=== PATIENT | male | born 1955 | race Caucasian/White ===

== ENCOUNTER 2020-03-18 14:40 | Emergency (ER) | payer OTHER, SELFPAY ==
[2020-03-18 15:03] VITALS: BP 144/81; PULSE 83; RESP 20; TEMP 36.9; O2SAT 100
--- NOTE | 2020-03-18 15:31 | ED.BACK ---
HPI - Back Pain/Injury General Chief Complaint: Back Pain/Injury Stated Complaint: nerve pain lt hip & leg Time Seen by Provider: 03/18/20 15:27 Source: RN notes reviewed History of Present Illness HPI Narrative: Patient presents emergency department from home for left lower back pain. Patient states that pain began when he carried a package of shingles up a ladder and onto the roof on 03/14/2020. States that since that time is had pain in his left lower back that radiates into his left leg. He states he has a history of sciatica and this feels similar to previous episodes. He denies any direct trauma or injury. Denies any fevers or chills abdominal pain bowel or bladder incontinence. States pain does shoot in his left leg. States occasional tingling in the left leg. Related Data Allergies Allergy/AdvReac Type Severity Reaction Status Date / Time No Known Allergies Allergy Unverified 03/18/20 15:15 Review of Systems Review of Systems: Narrative: Gen.: Denies fevers or chills ENT: Denies congestion Respiratory: Denies shortness of breath or cough CV: Denies chest pain or palpitations GI: Denies abdominal pain nausea, emesis or diarrhea denies bowel or bladder incontinence Musculoskeletal: See HPI Neuro: Denies numbness, tingling, weakness or focal weakness Skin: Denies rash Except as documented, all other systems reviewed and negative [facility] Past Medical History Medical History (Updated 03/18/20 @ 15:34 by Micah Selby DO) Sciatica Social History Social History (Updated 03/18/20 @ 15:33 by Micah Selby DO) Smoking status: Current every day smoker Exam Narrative: Exam Narrative: APPEARANCE: No acute distress, nontoxic, resting in bed Eyes: EOMI HEENT: Normocephalic, atraumatic, CV: Regular rate and rhythm without murmur RESPIRATORY: No respiratory distress. Clear to auscultation bilaterally. Abdomen: Soft and nontender, no rebound or guarding MUSCULOSKELETAl: Moves all extremities, no clubbing cyanosis or edema Back: No midline lumbar tenderness to palpation or step-off, tender to palpation over left paravertebral muscles L4-5 and left piriformis region, pain increased with forward flexion NEURO: Awake and alert. Following commands, speech normal, no focal deficits, muscle strength 5 out of 5 bilateral lower extremities, bilateral patellar reflex 2+ SKIN:: Warm, dry. Normal Color no rash or lesions Course Course Emergency Course: Reviewed old records Discussed with patient results of workup and diagnosis. Discussed need for follow-up with primary care, proper use of medication, and reasons to return to the emergency department. Patient understands and agrees to current treatment plan Vital Signs Vital signs: Vital Signs Temperature 98.4 F 03/18/20 15:03 Pulse Rate 83 03/18/20 15:03 Respiratory Rate 03/18/20 15:03 Blood Pressure 144/81 H 03/18/20 15:03 Pulse Oximetry 100 03/18/20 15:03 Temperature 98.4 F 03/18/20 15:03 Pulse Rate 83 03/18/20 15:03 Respiratory Rate 03/18/20 15:03 Blood Pressure 144/81 H 03/18/20 15:03 Pulse Oximetry 100 03/18/20 15:03 MDM - Back Pain/Injury MDM Narrative Medical decision making narrative: Patient?s pain is positional and localized to back without signs of cord compression or cauda equina. Normal nuerologic exams. No fever noted and no significant risk factors for osteomyelitis or spinal epidural abscess. No symptoms or signs to suggest pain is referred from abdominal or source. There are no pulsatile masses to exam. Patient ambulates with a steady gait and is felt to be up reasonable candidate for continued outpatient management Discharge Plan Discharge Clinical Impression: Low back pain Patient Disposition: Home, Self-Care Condition: Stable Instructions: Antibiotic Form, Acute Low Back Pain (ED) Additional Instructions: Return for increasing pain, numbness or tingling in the extremities bowel or
[2020-03-18] MEDS: KETOROLAC (*BKC) 60 MG/2 ML VIAL IM (15:51)
== END 2020-03-18 15:56 | disposition home or self-care (01) ==
PROVIDERS: Emergency Provider Emergency Medicine
DX: M54.5 Low back pain (principal)
CPT/HCPCS: 96372; 99283; J1885

== ENCOUNTER 2020-06-12 10:11 | Emergency (ER) | payer OTHER, SELFPAY ==
[2020-06-12 10:31] VITALS: BP 132/79; PULSE 94; RESP 22; TEMP 36.3; O2SAT 100
--- NOTE | 2020-06-12 10:41 | ED.SOB ---
HPI - SOB/Dyspnea General Chief Complaint: Upper Respiratory Infection Stated Complaint: SOB Source: patient Mode of arrival: ambulatory Limitations: no limitations History of Present Illness HPI Narrative: Patient is a 65-year-old male who presents with shortness of breath, intermittent chest pain, sinus pressure congestion, headache x 5 days increasing today. Denies fever, denies known contact with Covid. Patient is a current smoker. He denies taking [id number] medications for symptom relief. Patient is a poor historian and unable to report all medications. Patient has increased work of breathing at this time. MD elicited complaint: shortness of breath Related Data Home Medications Medication Instructions Recorded Confirmed Unable to Obtain Home Medications 06/12/20 06/12/20 Allergies Allergy/AdvReac Type Severity Reaction Status Date / Time No Known Allergies Allergy Verified 06/12/20 10:53 Review of Systems Review of Systems: Narrative: CONSTITUTIONAL: Denies fever, chills, or sweats. EYES: Denies visual changes, redness, or discharge. ENT: Denies rhinorrhea or otalgia. Reports congestion and sore throat CARDIOVASCULAR: Reports intermittent chest pain, palpitations, or edema. RESPIRATORY: Reports dyspnea. GASTROINTESTINAL: Denies abdominal pain, nausea, vomiting, or diarrhea. GENITOURINARY: Denies dysuria or hematuria. SKIN: Denies rash or itching. MUSCULOSKELETAL: Denies back pain, joint pain, or myalgia. NEUROLOGIC: Denies headache, numbness, dizziness, or weakness. PSYCHIATRIC: Denies anxiety or depression. [facility] Past Medical History Medical History (Updated 06/12/20 @ 10:58 by CHRIS Salgado) Diabetes HTN (hypertension) Sciatica Surgical History Surgical History (Updated 06/12/20 @ 10:53 by CHRIS Salgado) Surgical history unknown Social History Social History (Updated 06/12/20 @ 10:54 by CHRIS Salgado) Smoking status: Current every day smoker Alcohol intake: current Alcohol use details: occasional Substance use: never Gender identity (if verbalized by the patient): Male Exam Narrative: Exam Narrative: GENERAL: Ill-appearing and ashen HEAD: Normocephalic, atraumatic. EYES: No redness or drainage. Conjunctiva are normal. ENT: Mucous membranes pink and moist. NECK: Supple. No lymphadenopathy. CHEST: Diminished lung sounds right lobe, increased work of breathing, mild supra sternal retractions, tachypneic HEART: Regular rate and rhythm. MUSCULOSKELETAL: No bony tenderness. EXTREMITIES: Normal range of motion. No edema. SKIN: Warm, dry, no rash. NEURO: No focal deficits. Alert and oriented x3. Gait steady. PSYCH: Normal affect. No signs of depression or anxiety. Course Vital Signs Vital signs: Vital Signs Temperature 36.3 C L 06/12/20 10:31 Pulse Rate 94 06/12/20 10:31 Respiratory Rate 22 H 06/12/20 10:31 Blood Pressure 132/79 06/12/20 10:31 Pulse Oximetry 100 06/12/20 10:31 Temperature 36.3 C L 06/12/20 10:31 Pulse Rate 94 06/12/20 10:31 Respiratory Rate 22 H 06/12/20 10:31 Blood Pressure 132/79 06/12/20 10:31 Pulse Oximetry 100 06/12/20 10:31 Transfer Transfered to: Jeffrey Transfer rationale: Higher level of care, need for diagnostic testing Accepting physician: Dr. Trejo. BUDDY Jones accepted report Transfer comments: Patient to drive his own vehicle, refused EMS transport. MDM - SOB/Dyspnea MDM Narrative Medical decision making narrative: Patient to be sent to the emergency department for further evaluation, no available chest x-ray at facility at this time. Patient appears to have increased work of breathing, ashen color, further evaluation and diagnostic testing is needed at this time. Patient refusing EMS transport, reports that he will drive my own vehicle . Differential Diagnosis Differential diagnosis: Likely acute exacerbation of chronic obstructive airways disease, commun
== END 2020-06-12 10:45 | disposition short-term general hospital (02) ==
PROVIDERS: Emergency Provider Nurse Practitioner
DX: R06.02 Shortness of breath (principal); E11.9 Type 2 diabetes mellitus without complications; I10 Essential (primary) hypertension; F17.200 Nicotine dependence, unspecified, uncomplicated
CPT/HCPCS: 99212; G0463

== ENCOUNTER 2020-06-12 11:32 | Emergency (ER) | payer OTHER, SELFPAY ==
[2020-06-12] VITALS (13 sets, daily range): BP systolic 127–156; BP diastolic 67–87; PULSE 72–94; RESP 17–24; TEMP 35.5; O2SAT 94–100
--- NOTE | ~2020-06-12 | US_ITS ---
EXAMINATION: US scrotum doppler DATE: 06/12/2020 13:05 INDICATION: Right testicular pain TECHNIQUE: Testicular sonogram utilizing grayscale and Doppler COMPARISON: None. FINDINGS: The right testis measures 4.5 x 2.6 x 1.9 cm. The left testis measures 4.7 x 2.7 x 1.8 cm. There is normal vascular flow to both testes. The right epididymis is normal with normal vascular jamee w. The left epididymis is normal with normal vascular flow. There is a small left hydrocele. IMPRESSION: 1. No sonographic correlate for the patient's symptoms. Reviewed, dictated and finalized at location A. ORY SCIENTIST
--- NOTE | ~2020-06-12 | XR_ITS ---
EXAMINATION: XR chest 1V portable INDICATION: Shortness of breath TECHNIQUE: Portable AP chest at 1230 hours COMPARISON: 01/21/2018 FINDINGS: The lungs are free of acute opacities. There is no pleural effusion or pneumothorax. The ca rdiomediastinal silhouette is normal. A coronary artery stent is noted. There are degenerative change s of the shoulders. IMPRESSION: 1. No acute cardiopulmonary abnormality. Reviewed, dictated and finalized at location A. ING PROGRAM DIRECTOR
--- NOTE | 2020-06-12 11:59 | ECG_ITS ---
Measurements Intervals [place] Rate: 84 P: 62 NM: 116 QRS: 26 QRSD: 97 T: 51 QT: 365 QTc: 433 Interpretive Statements SINUS RHYTHM WITH SHORT NM INTERVAL BASELINE WANDER- V6 BORDERLINE ECG Electronically Signed On 06-12-2020 13:02:10 [employer]ATER by Siann Carrion D.O.
--- NOTE | 2020-06-12 12:02 | PC.NURSE ---
Patient states that he takes 17 medications and a shot but does not know the name or why he takes them.
[2020-06-12 12:20] LABS: Basophils Percent Auto 0.5 % (0.2-1.2); Eosinophils Absolute Auto 0.2 K/mm3 (0-0.3); Eosinophils Percent Auto 3.4 % (0-4.4); Hemoglobin 13.6 g/dL (14.0-18.0); Immature Granulocyte Absolute 0.02 K/mm3 (0.00-0.031); Immature Granulocyte Percent A 0.3 % (0-0.5); Lymphocytes Absolute Auto 1.15 K/mm3 (0.9-3.2); Lymphocytes Percent Auto 17.9 % (18.3-44.2); Mean Corpuscular HGB Conc 32.4 g/dl (32-36); Mean Corpuscular Hemoglobin 26.5 pg (26-34); Mean Corpuscular Volume 81.7 fl (80-100); Mean Platelet Volume 9.3 fl (7.4-10.4); Monocytes Absolute Auto 0.4 K/mm3 (0.1-0.6); Monocytes Percent Auto 6.2 % (2.6-8.5); Neutrophils Absolute Auto 4.6 K/mm3 (1.3-6.7); Neutrophils Percent Auto 71.7 % (45.5-73.1); Platelet Count Result 230 k/mm3 (150-375); Red Blood Count 5.14 M/mm3 (4.6-6.20); Red Cell Distribution Width 15.1 % (11.5-14.5); White Blood Count 6.4 K/mm3 (4.5-10.0)
--- NOTE | 2020-06-12 12:27 | ED.URI ---
HPI - URI/Sore Throat General Chief Complaint: Upper Respiratory Infection Stated Complaint: short of breath Time Seen by Provider: 06/12/20 12:08 Source: patient Mode of arrival: ambulatory Limitations: no limitations History of Present Illness HPI Narrative: Patient is a 65-year-old male complaining of cough, shortness of breath, nasal congestion, body aches, malaise, sore throat started 2 to 3 days ago. Patient also complaining of right testicular pain accompanied by difficulty urinating after he dropped a power tool on it 3 days ago. Denies any chest pain, abdominal pain, nausea vomiting diarrhea or fever. Related Data Home Medications Medication Instructions Recorded Confirmed Unable to Obtain Home Medications 06/12/20 06/12/20 Allergies Allergy/AdvReac Type Severity Reaction Status Date / Time No Known Allergies Allergy Verified 06/12/20 10:53 Review of Systems Review of Systems: All systems reviewed & are unremarkable except as noted in HPI and below Constitutional: Constitutional: Denies body ache(s), Denies chills, Denies excessive sweating, Denies fatigue, Denies fever(s), Denies headache(s), Denies lethargy and Denies weight loss Eyes: Eyes: Denies blurry vision, Denies change in vision and Denies loss of vision ENT: Denies dizziness, Denies ear discharge, Denies headache(s), Denies lip swelling, Denies epistaxis, Denies nasal congestion, Denies neck pain, Denies throat swelling and Denies tongue swelling Cardiovascular: Cardiovascular: Denies chest pain, Denies chest pain at rest, Denies chest pain with activity, Denies diaphoresis, Denies rapid heart rate, Denies edema, Denies irregular heart rhythm, Denies lightheadedness and Denies palpitations Respiratory: Respiratory: Denies hemoptysis Gastrointestinal: Gastrointestinal: Denies abdominal pain, Denies melena, Denies hematochezia, Denies diarrhea, Denies nausea, Denies vomiting and Denies hematemesis Musculoskeletal: Musculoskeletal: Denies abnormal gait, Denies deformity, Denies joint swelling, Denies limited range of motion, Denies neck pain and Denies numbness Neurologic: Denies Abnormal speech present, Denies abnormal gait, Denies confusion, Denies dizziness, Denies headache(s), Denies focal weakness, Denies loss of vision, Denies numbness, Denies Other visual disturbances, Denies Sensory deficit (Neuro) and Denies weakness Psychiatric: Psychiatric: Denies confusion, Denies depression, Denies auditory hallucinations, Denies homicidal ideation and Denies suicidal ideation Endocrine: Endocrine: Denies cold intolerance, Denies excessive sweating, Denies fatigue, Denies heat intolerance and Denies palpitations Hematologic/Lymphatic: Hematologic/Lymphatic: Denies easy bleeding and Denies easy bruising Allergic/Immunologic: Allergic/Immunologic: Denies lip swelling, Denies throat swelling and Denies tongue swelling PMFSH Past Medical History Medical History (Updated 06/12/20 @ 15:18 by Micah Mianya MD) Diabetes HTN (hypertension) Sciatica Surgical History Surgical History (Updated 06/12/20 @ 10:53 by CHRIS Salgado) Surgical history unknown Social History Social History (Updated 06/12/20 @ 10:54 by CHRIS Salgado) Smoking status: Current every day smoker Alcohol intake: current Substance use: never Gender identity (if verbalized by the patient): Male Exam Const: General: cooperative, healthy appearing, comfortable, no acute distress, well developed, alert and awake; No confusion Orientation/consciousness: oriented to person, oriented to place, oriented to time, patient oriented x3 and No confusion Limitations: no limitations HENMT: Head: normal to inspection, normocephalic and atraumatic Ears: hearing grossly normal bilaterally, TM normal on the right and TM normal on the left General nose exam: Normal external nose present and Normal nares present Face and sinus: normal facial exam Mouth: Yes Normal o
[2020-06-12 12:37] LABS: Anion Gap 10 mmol/L (8-16); Blood Urea Nitrogen 17 mg/dL (9-20); Calcium 9.7 mg/dL (8.4-10.2); Carbon Dioxide 25 mmol/L (22-30); Chloride 92 mmol/L (98-107); Estimated Glomerular Filt Rate > 60; Glucose 621 mg/dL (75-110); Potassium 4.5 mmol/L (3.4-5.0); Sodium 127 mmol/L (137-145)
[2020-06-12] MEDS: LACTATED RINGERS 1,000 ML 999 ML IV CONT ×2 (12:58→15:00)
[2020-06-12 13:03] LABS: Alveolar/Arterial O2 Gradient 61.4 mmHg; Carboxyhemoglobin 4.4 % THb (0-2.0); Fractional Inspired Oxygen 21 %; HCO3 ABG 24.9 mEq/l (22.0-26.0); Methemoglobin ABG 0.2 %THb (0-1.5); Oxygen Content ABG 14.3 %vol (16.0-22.0); Oxyhemoglobin 70.1 % THb (90.0-100.0); PCO2 ABG 41.6 mmHg (35.0-45.0); PO2 FiO2 Ratio Arterial Blood 1.83 %; Reduced Hemoglobin 25.3 %THb (0-5.0); Total Hemoglobin 14.6 g/dL (12.0-18.0); pH ABG 7.395 (7.350-7.450)
[2020-06-12 13:06] LABS: PO2 ABG 38.5 mmHg (80.0-100.0)
[2020-06-12 13:07] LABS: Device ROOM AIR; Modified Allen's Test Pass; Oxygen Saturation ABG 72.6 % (95.0-100.0); Site Drawn RIGHT RADIAL
[2020-06-12] MEDS: SODIUM CHLORIDE 0.9% IV 1,000 ML 999 ML IV CONT (15:00)
[2020-06-12 15:06] LABS: Glucose Point of Care 402 (65-105)
[2020-06-12] MEDS: INSULIN HUMAN REGULAR (*BKC) 100 UNITS/ML 10 UNITS SUB-Q (15:44)
[2020-06-12 17:26] LABS: Glucose Point of Care 277 (65-105)
--- NOTE | 2020-06-12 17:30 | PC.NURSE ---
Meal tray order
--- NOTE | 2020-06-12 18:20 | PC.NURSE ---
This RN went to push patient upstairs to room 303 when he verbalized that he was not staying. EDP notified and filled out AMA form. Patient was educated on the risk of leaving AMA. Pt verbalized understanding states wont be the first time I . Patient signed AMA for prior to leaving. Patient ambulated to ER exit.
== END 2020-06-12 18:21 | disposition left against medical advice (07) ==
PROVIDERS: Emergency Medicine; Emergency Provider Emergency Medicine
DX: E11.00 Type 2 diabetes mellitus with hyperosmolarity without nonketotic hyperglycemic-hyperosmolar coma (NKHHC) (principal); E11.65 Type 2 diabetes mellitus with hyperglycemia; J06.9 Acute upper respiratory infection, unspecified; N50.811 Right testicular pain; I10 Essential (primary) hypertension; F17.200 Nicotine dependence, unspecified, uncomplicated; R94.31 Abnormal electrocardiogram [ECG] [EKG]; W20.8XXA Other cause of strike by thrown, projected or falling object, initial encounter
CPT/HCPCS: 36415; 36600; 71045; 76870; 80048; 82375; 82805; 82948; 83050; 85025; 93005; 93976; 96360; 96361; 99284; J1815; J7030; J7120

== ENCOUNTER 2024-11-25 03:40 | Emergency (ER) | payer MEDICARE, SELFPAY ==
[2024-11-25] VITALS (15 sets, daily range): BP systolic 108–150; BP diastolic 54–90; PULSE 84–99; RESP 13–22; TEMP 36.4–36.6; O2SAT 97–100
--- NOTE | ~2024-11-25 | XR_ITS ---
Clinical Indication: Chest pain AP and lateral views of the chest: Comparison: 06/12/2020 Findings: The lungs are clear, without evidence of focal consolidation or pleural effusion. Oh probab le COPD with minimal bibasilar interstitial prominence. Cardiomediastinal silhouette is within normal limits. Bones and soft tissues are unremarkable. Impression: COPD with minimal bibasilar interstitial prominence. Reviewed, dictated and finalized at location M. Impression: COPD with minimal bibasilar interstitial prominence.
--- NOTE | 2024-11-25 03:48 | ECG_ITS ---
Test Date: 2024-11-25 03:53:47 Measurements Intervals [place] Rate: 96 P: 95 [place]: 131 QRS: -2 QRSD: 100 T: 71 QT: 347 QTc: 438 Interpretive Statements SINUS RHYTHM DELAYED PRECORDIAL R/S TRANSITION BASELINE WANDER-V3 BORDERLINE ECG No previous ECG available for comparison Electronically Signed On 11-25-2024 06:28:37 CDT by Sinan Carrion D.O.
--- OUTSIDE RECORDS SUMMARY | 2024-11-25 03:52 | XMS_ITS | Clinical Summary ---
Author Organization [facility] Address [address] [place] [address] Care Team Providers Care Cemetery Vault Installer Name Role Phone No, Physician Unavailable Tavares Jarrell MD Unavailable [phone] Eusebio Jarrell MD Unavailable Yamilet Patiño NP Primary Care Provider [phone] Allergies No known active allergies Medications fluticasone propionate (FLONASE) 50 mcg/actuation nasal spray Administer 2 sprays into affected nostril(s) daily Active acetaminophen 500 mg capsule Take 2 capsules (1,000 mg total) by mouth every 8 (eight) hours 30 tablet 3 Active finasteride (PROSCAR) 5 mg tablet Take 1 tablet (5 mg total) by mouth daily 3 Active ascorbic acid (vitamin C) 1,000 mg tablet Take 1 tablet (1,000 mg total) by mouth daily Active metFORMIN XR (GLUCOPHAGE XR) 500 mg 24 hr tablet Take 1 tablet (500 mg total) by mouth 2 (two) times a day 60 tablet 4 12/01/19 25 Active aspirin 81 mg enteric coated tablet Take 1 tablet (81 mg total) by mouth daily 30 tablet 1 4 Active atorvastatin (LIPITOR) 40 mg tablet Take 1 tablet (40 mg total) by mouth nightly 30 tablet 4 Active Xarelto 20 mg tablet Take 1 tablet (20 mg total) by mouth daily with dinner 30 tablet 4 12/01/19 25 Active metoprolol tartrate (LOPRESSOR) 50 mg immediate release tablet Take 1 tablet (50 mg total) by mouth 2 (two) times a day 60 tablet 11 4 12/01/19 25 Active dronedarone (MULTAQ) 400 mg tablet Take 1 tablet (400 mg total) by mouth 2 (two) times a day with meals 60 tablet 4 Active insulin glargine (LANTUS) 100 unit/mL (3 mL) pen for injection Inject 30 Units under the skin nightly 15 mL 4 Active pen needle, diabetic (Pen Needle) 32 gauge x 5/32 needle Use as directed once a day. 100 each 4 Active insulin lispro (ADMELOG) 100 unit/mL pen for injection Inject 8 Units under the skin 3 (three) times a day with meals 15 mL 1 4 Active pen needle, diabetic 32 gauge x 5/32 needle Use as directed 3 times a day. 100 each 4 Active flash glucose sensor (FreeStyle Mainor 2 Sensor) kit Use as directed. Change sensor every 14 days. 2 kit 4 Active Additional Information Patient not taking.Reported on 10/18/2024 flash glucose scanning reader (FreeStyle Mainor 2 [place]) [facility] Use as directed with sensor. 1 each 4 Active Additional Information Patient not taking.Reported on 10/18/2024 Active Problems Problem Noted Date Diagnosed Date Chest pain 10/19/2024 Hyperglycemia 10/18/2024 Atrial fibrillation with rapid ventricular respo nse 06/12/2024 Hyperkalemia 11/30/2023 History of right above knee amputation 3 Moderate protein-calorie malnutrition 02/17/2023 Acute lower limb ischemia 12/05/2022 Assessment & Plan (12/21/2022 12:06 PM CDT): Patient following up status post right lower extremity catheter directed thrombolysis for acute on chronic limb ischemia on 12/06/2022. Patient required a large amount of sedation medications and then left AMA. He is now developed worsening redness and ischemic rest pain and wounds to the right foot. We discussed his vascular status to the right leg which is non-reconstructible and will require a right AKA. Patient placed on doxycycline. Seen with Dr. Eusebio Jarrell. PVD (peripheral vascular disease) 12/02/2022 Assessment & Plan (12/07/2022 1:35 PM CDT): Status post pharmacomechanical thrombectomy and right popliteal artery stenting. Stent is patent. Continue current medical management follow-up 3 months with duplex surveillance. Mixed hyperlipidemia 11/22/2022 Assessment & Plan (06/15/2023 3:22 PM VENDING STAND SUPERVISOR): Stable continue Lipitor 40 mg. Varicose veins of right lower extremity with anders n 11/22/2022 Low body weight due to inadequate caloric intake 11/22/2022 Artery occlusion 10/18/2022 Lung nodule 10/05/2022 Hyperglycemia due to diabetes mellitus Illicit drug use 09/14/2022 Fall 09/14/2022 Accidental drug overdose 09/13/2022 Diabetic neuropathy associat ed with type 2 diabetes mellitus 06/26/2019 Overview (09/13/2022): Last Assessment & Plan: Condition: stable Discussed glucose control targets. Educated on: Lifestyle changes, Nutrition, Foot care and Medication compliance. The monofilament test was positive for neuropathy. Oral sees a sandwich and drink cart operator regularly for foot care. Discussed regular foot care with him to prevent and identify any irregularities on the soles of the feet or on and between the toes. Oral encouraged to utilize a mirror for better view of the soles of the feet if needed. Advised member to discuss with the PCP the services of a sandwich and drink cart operator. Follow up in: three months with PCP Allergic rhinitis 06/10/2019 Overview (09/13/2022): Last Assessment & Plan: Condition: stable Follow up in: three months with PCP DM type 2 with diabetic mixed hyperlipidemia 11/2018 Overview (09/13/2022): Last Assessment & Plan: Condition: stable Discussed glucose control targets. Educated on: Lifestyle changes, Nutrition, Foot care and Medication compliance. Discussed with Oral behavior modifications to include choosing healthier options for foods and avoiding foods fast foods or foods that are fried, high in trans fats or preservatives. Oral encouraged to maintain medication compliance and to increase their current level of exercise activity to 3- 4 times weekly. Oral verbalized understanding and advised to keep all scheduled appointments. Follow up in: three months with PCP and Metal Mockup Maker GERD without esophagitis 06/10/2019 Overview (09/13/2022): Last Assessment & Plan: Condition: stable Reviewed use of antacid medication and/or diet modifications of decreasing caffeine, spicy foods, chocolate, and avoiding alcohol, tobacco, NSAIDs, and reducing citrus acids. Follow up in: three months with PCP Nicotine dependence 06/10/2019 Overview (09/13/2022): Last Assessment & Plan: Condition: stable Discussed smoking cessation, immunizations and increasing exercise activity; risk of Lung Cancer, COPD, PAD, Stroke, Heart Attack and . Discussed pharmaceutical and non-pharmaceutical options to quit. Member advised to keep all scheduled appointments. Follow up in: three months with PCP Cirrhosis 11/09/2018 Hepatitis C virus infection without hepatic coma 11/09/2018 Essential hypertension 11/09/2018 Assessment & Plan (06/15/2023 3:22 PM VENDING STAND SUPERVISOR): Stable continue amlodipine 5 mg. Assessment & Plan (12/07/2022 1:36 PM CDT): Hypertension chronic and controlled. Continue current medical management. Portal hypertension 11/09/2018 BPH (benign prostatic hyperplasia) 10/18/2018 Overview (09/13/2022): Last Assessment & Plan: Condition: stable Pt encourage to eat a diet rich on legumes and soybeans, to decrease red meats intake. To eat fish rich on omega-3 such as salmon at least once a week. To drink at least 32 oz of water daily, to drink pomegranate juice, and green tea if approve by the PCP Follow up in: three months with PCP COPD (chronic obstructive pulmonary disease) Overview (09/13/2022): Last Assessment & Plan: Condition: stable Reviewed trigger avoidance and reviewed proper use of inhalers and rescue medications. Reviewed concerning signs/symptoms and ER precautions. Follow up in: three months with PCP Coronary artery disease of n ative heart with stable angina pectoris 10/18/2018 History of heart artery stent 10/18/2018 Overview (09/13/2022): three Hypothyroidism 10/18/2018 Iron deficiency anemia secon aster to inadequate dietary iron intake 05/24/2018 History of substance abuse 11/13/2017 Solitary pulmonary nodule 07/05/2017 Other intervertebral disc displacement, lumbar r egion 02/09/2017 Abdominal aortic aneurysm without rupture 2016 Overview (09/13/2022): 3.3 x3.6cm on ultrasound done 04/2019, recheck again in 1 year. Abnormal electrocardiogram 11/22/2016 Atrial fibrillation with RVR Resolved Problems Problem Noted Date Diagnosed Date Resolved Date Hypokalemia 06/17/2023 11/30/2023 Ischemia of extremity 02/14/20232023 Acquired absence of right leg above knee 12/21/2022 12/21/2022 Assessment & Plan (12/21/2022 12:00 PM CDT): Right leg pain 11/22/2022 11/30/2023 Limb ischemia 10/18/2022 11/30/2023 Assessment & Plan (06/15/2023 3:21 PM VENDING STAND SUPERVISOR): Status post right above knee amputation. He has now completely healed. We will start working with prosthetics. The patient has an adequate residual limb that would be appropriate for a level K3 prosthesis. They're currently undergoing prosthesis evaluation and fitting for a right above knee prosthetic. Patient has no complaints or concerns at this time. I have examined the patient and recommend a prosthesis. The patient was a level K3 ambulator prior to their amputation. 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 Patient is very motivated to return to normal function once prosthesis is obtained. The patient is capable walking on uneven surfaces and able to traverse multiple level barriers including stairs, curbs and hills. The patient currently has adequate upper extremity limb strength and ability to transfer from there chair to a bed, couch or toilet. The patient does not have any other comorbidities that would hinder their ability to return to full function within a reasonable amount of time. Altered mental status 09/14/20222023 Low back pain, unspecified b ack pain laterality, unspecified chronicity, unspecified whether sciatica present 09/13/2022 Mucopurulent chronic bronchitis 07/05/2017 11/30/2023 Abdominal pain 11/22/2016 11/30/2023 Type 2 diabetes mellitus wit h hyperglycemia, with long-term current use of insulin 11/22/2016 Assessment & Plan (12/07/2022 1:36 PM CDT): Chronic and controlled. Continue insulin regimen. Encounters Date Type Department Care Team Description 10/30/2024 Telephone [facility] Diabetes and Endocrinology [address] [place] [phone] Amparo Auguste MD New referral to Endocrinology 10/18/2024 5:21 PM CDT - 10/19/2024 8:34 PM CDT Hospital Encounter [address] [id number] Deo Alvarado MD Fasick, Victoria Rose, Zaid Zarate DO Chest pain, unspecified type (Primary Dx); Chronic anticoagulation; Type 1 diabetes mellitus with hyperglycemia (HCC); Chronic hyponatremia Discharge Disposition: Left Against Medical Advice 10/15/2024 Orders Only [facility] Vascular and Vein Surgery [address] [facility] [address] [place] [phone] Eusebio Jarrell MD Infrarenal abdominal aortic aneurysm (AAA) without rupture (Primary Dx); Atherosclerosis of iqugmiut artery of both lower extremities with intermittent claudication 10/14/2024 2:15 PM CDT Office Visit [facility] Vascular and Vein Surgery [address] [place] [phone] Pebbles Davis PA PVD (peripheral vascular disease) (Primary Dx); Infrarenal abdominal aortic aneurysm (AAA) without rupture; Cigarette nicotine dependence with nicotine-induced disorder; Mixed hyperlipidemia 10/14/2024 1:01 PM CDT - 10/14/2024 11:59 PM CDT Hospital Encounter [facility] [address] [place] [phone] Infrarenal abdominal aortic aneurysm (AAA) without rupture Discharge Disposition: Discharge to home or self care 10/14/2024 12:45 PM CDT - 10/14/2024 11:59 PM CDT Hospital Encounter [facility] [address] [place] [phone] PVD (peripheral vascular disease) Discharge Disposition: Discharge to home or self care 10/11/2024 Orders Only [facility] Vascular and Vein Surgery [address] [place] [phone] Eusebio Jarrell MD Infrarenal abdominal aortic aneurysm (AAA) without rupture (Primary Dx) from Last 3 Months Immunizations Immunization Administration Dates Next Due Influenza, Unspecified 07/24/2019,05/11/2018, Pfizer SARS-CoV-2 Monovalent Vaccination (12+ Yrs) PURPLE 10/28/2021 Td, Adsorbed, Preservative F ree, Adult Use, Lf Unspecified 05/07/2018 Td, Unspecified 05/07/2018 Surgical History Surgery Date Site/Laterality Comments THROMBECTOMY 10/20/2022 Right Exchange RLE thrombolytic catheter w/ RLE angiogram. Mech-Thromb RT pop, PT, & AT artery. BA RT PT & AT. BA & stenting RT pop artery. AORTIC ILIAC FEMORIAL ANGIOG FATUMA INTERVENTION 10/19/2022 Aortogram,pelvic angiogram & BLE angiogram. Initiation of catheter directed thrombolysis to RT pop artery. CARDIAC CATHETERIZATION CORONARY ANGIOPLASTY Stents x 4 --11 years ago at [facility] History Medical History Date Comments Hypertension Coronary artery disease Aortic aneurysm COPD (chronic obstructive pulmonary disease) (HC C) Illicit drug use BPH (benign prostatic hyperplasia) MD (myocardial infarction) (HCC) Depression Pulmonary nodule Diabetes mellitus (HCC) History of heart artery stent Social History Tobacco Use Types Packs/Day Years Used Date Smoking Tobacco: Every Day Cigarettes Tobacco Cessation:Ready to Q uit: Not Asked; Counseling Given: Not Answered Alcohol Use Standard Drinks/Week Comments Never 0 (1 standard drink = 0.6 oz pur e alcohol) [facility] Utilities Answer Date Recorded In the past 12 months has e [employer], gas, oil, or water [employer] threatened to shut off services in your home? Yes 11/30/2023 Social Connection and Isolation Panel [NHANES] A nswer Date Recorded In a typical week, how many times do you talk on the phone with family, friends, or neighbors? Three times a week 11/30/2023 How often do you get togethe r with friends or relatives? Three times a week 11/30/2023 How often do you attend chur ch or sabianism services? Never 11/30/2023 Do you belong to any clubs o r organizations such as zoroastrianism groups, unions, fraternal or athletic groups, or school groups? No 11/30/2023 How often do you attend meet ings of the clubs or organizations you belong to? Never 11/30/2023 Are you , , di vorced, , never , or living with a partner? 11/30/2023 Overall Financial Resource Strain (CARDIA) Answe r Date Recorded How hard is it for you to pa y for the very basics like food, housing, medical care, and heating? Hard 11/30/2023 PHQ-2 Answer Date Recorded PHQ-2 Total Score (If total score is 3 or more points, staff should administer the PHQ-9) 2 06/12/2024 Hunger Vital Sign Answer Date Recorded Within the past 12 months, y ou worried that your food would run out before you got the money to buy more. Sometimes true Within the past 12 months, t he food you bought just didn't last and you didn't have money to get more. Never true PRAPARE - Transportation Answer Date Re corded In the past 12 months, has l ack of transportation kept you from medical appointments or from getting medications? No 11/06 In the past 12 months, has l ack of transportation kept you from meetings, work, or from getting things needed for daily living? No 11/30/2023 Housing Stability Vital Sign Answer Jose Alejandro e Recorded In the last 12 months, was t here a time when you were not able to pay the mortgage or rent on time? No 11/30/2023 In the last 12 months, how many places have you lived? 1 11/30/2023 In the last 12 months, was t here a time when you did not have a steady place to sleep or slept in a fpc (including now)? No 11/30/2023 PHQ-9 Answer Date Recorded PHQ-9 Total Score 5 06/12/2024 Personal Safety Answer Date Recorded Have you ever been in or are you currently in a harmful physical or emotional relationship or is someone making you feel afraid or unsafe? Denies 10/18/2024 Sex and Gender Information Value Date Recorded Sex Assigned at Not on file Legal Sex Male 6:54 PM VENDING STAND SUPERVISOR Gender Identity Male 11/30/2023 12:46 AM CDT Sexual Orientation Not on file Obstetrics History Last Filed Vital Signs Vital Sign Reading Time Taken Comments Blood Pressure 121/65 10/19/2024 8:07 PM CDT Pulse 79 10/19/2024 8:07 PM CDT Temperature 36.6 C (97.9 F) 10/19/2024 8:07 PM CDT Respiratory Rate 18 10/19/2024 8:07 PM CDT Oxygen Saturation 96% 10/19/2024 8:07 PM CDT Inhaled Oxygen Concentration - - Weight 62 kg (136 lb 11 oz) 10/18/2024 11:40 PM CDT Height 170.2 cm (5' 7 ) 10/18/2024 11:40 PM CDT Body Mass Index 21.41 10/18/2024 11:40 PM CDT Plan of Treatment Health Maintenance Due Date Last Done Comments Albumin Creatinine Ratio, Urine 1955 Colon Cancer Screening-Colonoscopy 1955 Foot Exam 1955 Prostate Cancer Screening-PSA 1956 Dilated Eye Exam 02/15/1966 Hepatitis B Screening 02/15/1974 Pneumococcal vaccine 65+ (1 of 2 - PCV) 02/15/1975 Zoster Vaccine (1 of 2) 02/15/2006 DTaP/Tdap/Td Vaccine (1 - Tdap) 05/08/2018 8, 05/07/2018 Well Visit 65+ 02/15/2021 Lipid Panel 09/14/2023 09/14/2022 Covid-19 Vaccine (4 - 2023-2 5 season) 2024 10/28/2021, 03/21/2021, 02/19/2021 TSH Level 11/29/2024 11/30/2023, 06/07, 02/14/2023, Additional history exists Influenza Vaccine (Season Ended) 2025 06/22/2023, 07/24/2019, 05/11/2018, Additional history exists Hemoglobin A1C 04/20/2025 10/18/2024, 01/2024, 11/30/2023, Additional history exists Depression Screening 06/12/2025 06/12/2024, 06/12/20 Fall Risk Assessment 10/19/2025 10/19/2024 eGFR 10/19/2025 10/19/2024, 10/05, 10/18/2024, Additional history exists Hepatitis C Screening Completed 11/09/2018 Abdominal Aortic Aneurysm (A AA) Screen Completed 10/15/2024, 10/14/2024, 10/14/2024, Additional history exists Medical Devices Implanted Type Area Spike Maker Device Identifier Shelf Expiration Date Model / Serial / Lot Mesosphere Stent System Biomimics 3d Vascular [id number] - [id number] Implanted:Qty: 1 on 10/20/2022 by Tavares Jarrell MD at [facility] [employer] 01/19/2024 [id number] / / [id number] Procedures Procedure Name Priority Date/Time Associated Diagnosis Comments POCT GLUCOSE DEVICE Routine 10/19/2024 8 :08 PM CDT POCT GLUCOSE DEVICE Routine 10/19/2024 5 :49 PM CDT POCT GLUCOSE DEVICE Routine 10/19/2024 1 2:27 PM CDT POCT GLUCOSE DEVICE Routine 10/19/2024 8 :23 AM CDT EGFR Routine 10/19/2024 1:45 AM CDT DIFFERENTIAL AUTO Routine 10/19/2024 1:4 5 AM CDT CBC WITH AUTO DIFFERENTIAL Routine 10/19/2024 1:45 AM CDT PHOSPHORUS Routine 10/19/2024 1:45 AM CDT MAGNESIUM Routine 10/19/2024 1:45 AM CDT COMPREHENSIVE METABOLIC PANEL Routine 10/19/2024 1:45 AM CDT POCT GLUCOSE DEVICE Routine 10/18/2024 1 1:52 PM CDT EGFR Timed 10/18/2024 10:19 PM CDT HEMOGLOBIN A1C Routine 10/18/2024 10:19 PM CDT BASIC METABOLIC PANEL Timed 10/18/2024 10:19 PM CDT POCT GLUCOSE DEVICE Routine 10/18/2024 1 0:00 PM CDT POCT GLUCOSE DEVICE Routine 10/18/2024 9 :28 PM CDT POCT GLUCOSE DEVICE Routine 10/18/2024 8 :16 PM CDT TROPONIN T HIGH-SENSITIVITY 2-HOUR Timed 10/18/2024 7:14 PM CDT POCT GLUCOSE DEVICE Routine 10/18/2024 7 :07 PM CDT XR CHEST 1 VIEW ED 10/18/2024 5:35 PM CDT EGFR STAT 10/18/2024 5:31 PM CDT DIFFERENTIAL AUTO STAT 10/18/2024 5:3 1 PM CDT PROTIME-INR Routine 10/18/2024 5:31 PM CDT TROPONIN T HIGH-SENSITIVITY SERIES (BASELINE, 2HR, 4HR, 6HR) STAT 10/18/2024 5:31 PM CDT COMPREHENSIVE METABOLIC PANEL STAT 10/18/2024 5:31 PM CDT CBC WITH AUTO DIFFERENTIAL STAT 10/18/2024 5:31 PM CDT ECG 12-LEAD STAT 10/18/2024 5:29 PM CDT US DUPLEX SCAN OF AORTA: INFERIOR VENA CAVA, ILIAC, COMPLETE Routine 10/14/2024 1:59 PM CDT Infrarenal abdominal aortic aneurysm (AAA) without rupture US ARTERIAL DOPPLER LOWER EXTREMITY BILATERAL Schedule Routine, Read Routine (OP Routine) 10/14/2024 1:59 PM CDT PVD (peripheral vascular disease) THYROID FUNCTION CASCADE STAT 11/30/2023 7:45 AM CDT CTA ABDOMINAL AORTA AND BILATERAL ILIOFEMORAL RUNOFF ED 10/25/2022 4:50 PM CDT LIPID PANEL Routine 09/14/2022 1:43 AM VENDING STAND SUPERVISOR from Last 3 Months or Most Recently Relevant to Health Maintenance Results * (ABNORMAL) POCT glucose (10/19/2024 8:08 PM CDT) Glucose, POC 496(C) 70 - 199 mg/dL Glucose comment 1 Use This Result [facility] Blood 10/19/2024 8:08 PM CDT 10/19/2024 8:08 PM CDT Sa Heard DO LAB POCT ORDERABLES - DEVICE Fin al Result Performing Organization Address [facility] Co de Phone Number RAVI [address] [place] [address] * (ABNORMAL) POCT glucose (10/19/2024 5:49 PM CDT) Glucose, POC 306(H) 70 - 199 mg/dL Glucose comment 1 RN/MD Notified [facility] Blood 10/19/2024 5:49 PM CDT 10/19/2024 5:49 PM CDT [employer] DO LAB POCT ORDERABLES - DEVICE Fin al Result Performing Organization Address [facility] Co de Phone Number [address] [place] [address] * (ABNORMAL) POCT glucose (10/19/2024 12:27 PM CDT) Glucose, POC 380(H) 70 - 199 mg/dL Blood 10/19/2024 12:2 7 PM CDT 10/19/2024 12:27 PM CDT [facility] Heard DO LAB POCT ORDERABLES - DEVICE Fin al Result Performing Organization Address [facility] Co de Phone Number [address] [address] * (ABNORMAL) POCT glucose (10/19/2024 8:23 AM CDT) Glucose, POC 369(H) 70 - 199 mg/dL Glucose comment 1 Use This Result [facility] Glucose comment 2 RN/MD Notified [facility] Blood 10/19/2024 8:23 AM CDT 10/19/2024 8:23 AM CDT Zaid Heard DO LAB POCT ORDERABLES - DEVICE Fin al Result Performing Organization Address [facility] de Phone Number RAVI [address] [address] * eGFR (10/19/2024 1:45 AM CDT) Pathologist [facility] eGFR >90 >=60 mL/min/1. 73 m2 Comment: Interpretive Data Reference Interval Normal >/= 90 mL/min/1.73m2 Mildly decreased* 60 - 89 mL/min/1.73m2 Mildly to moderately decreased 45 - 59 mL/min/1.73m2 Moderately to severely decreased 30 - 44 mL/min/1.73m2 Severely decreased 15 - 29 mL/min/1.73m2 Kidney Failure < 15 mL/min/1.73m2 *Relative to young adult level Estimated glomerular filtration rate is determined by the 2020 CKD-EPI equation recommended by the National Kidney Foundation (A Unifying Approach to GFR Estimation: Recommendations of the NKF-ASK Task Force on Reassessing the Inclusion of Race in Diagnosing Kidney Disease, JASN 2020). The CKD-EPI equation should not be used for patients with unstable renal function and has not been validated in children and those over 70. Current interpretive data was last reviewed 2021. Blood 10/19/2024 1:45 AM CDT 10/19/2024 1:51 AM CDT Evelyn Hernandez DO LAB BLOOD ORDERABLES Fin al Result Performing Organization Address [facility] Co de Phone Number RAVI [address] [place] [address] * (ABNORMAL) Differential, auto (10/19/2024 1:45 AM CDT) Pathologist [facility] Neutrophil abs 5.6 1.5 - 6.5 K/cumm Imm gran abs 0.0 0.0 - 0.1 K/cumm [facility] Lymphocyte abs 0.8 0.8 - 3.3 K/cumm [facility] Monocyte abs 0.1(L) 0.2 - 0.8 K/cumm [facility] Eosinophil abs 0.0 0.0 - 0.5 K/cumm [facility] Basophil abs 0.0 0.0 - 0.1 K/cumm [facility] Neutrophil pct 85.8 % [facility] Comment: Interpretive Data Percent cell count reference ranges are not reported, since discordance with absolute values may lead to misinterpretation of CBC data. Current Interpretive Data was last revised on 2017. Imm gran pct 0.3 % [facility] Comment: Interpretive Data Percent cell count reference ranges are not reported, since discordance with absolute values may lead to misinterpretation of CBC data. Current Interpretive Data was last revised on 2017. Lymphocyte pct 12.2 % [facility] Comment: Interpretive Data Percent cell count reference ranges are not reported, since discordance with absolute values may lead to misinterpretation of CBC data. Current Interpretive Data was last revised on 2017. Monocyte pct 1.5 % [facility] Comment: Interpretive Data Percent cell count reference ranges are not reported, since discordance with absolute values may lead to misinterpretation of CBC data. Current Interpretive Data was last revised on 2017. Eosinophil pct 0.0 % [facility] Comment: Interpretive Data Percent cell count reference ranges are not reported, since discordance with absolute values may lead to misinterpretation of CBC data. Current Interpretive Data was last revised on 2017. Basophil pct 0.2 % [facility] Comment: Interpretive Data Percent cell count reference ranges are not reported, since discordance with absolute values may lead to misinterpretation of CBC data. Current Interpretive Data was last revised on 2017. Blood 10/19/2024 1:45 AM CDT 10/19/2024 1:51 AM CDT us Evelyn Hernandez DO LAB BLOOD ORDERABLES Fin al Result RAVI YU [address] [facility] [place] [address] * CBC with auto differential (10/19/2024 1:45 AM CDT) WBC 6.6 3.8 - 9.9 K/cumm Hgb 14.1 13.0 - 17.5 g/dL [facility] Hct 41.3 38.9 - 50.3 % [facility] Plt 218 150 - 400 K/cumm [facility] MPV 9.2 9.1 - 12.3 fL [facility] RBC 4.79 4.30 - 5.80 M/cumm [facility] MCV 86.2 81.3 - 96.4 fL [facility] MCH 29.4 27.1 - 33.3 pg [facility] MCHC 34.1 32.3 - 35.7 g/dL [facility] RDW CV 13.4 11.1 - 14.9 % [facility] RDW SD 41.9 35.7 - 48.1 fL [facility] NRBC abs 0.00 0.00 - 0.01 K/cumm [facility] Blood 10/19/2024 1:45 AM CDT 10/19/2024 1:51 AM CDT Shustir LAB BLOOD ORDERABLES Fin al Result Performing Organization Address [facility] de Phone Number [address] [place] [address] * Phosphorus (10/19/2024 1:45 AM CDT) [facility] Phosphorus, pl 2.3 2.3 - 4.5 mg/dL Blood 10/19/2024 1:45 AM CDT 10/19/2024 1:51 AM CDT [facility] [employer] [facility] LAB BLOOD ORDERABLES Fin al Result Performing Organization Address [facility] Co de Phone Number [address] [place] [address] * Magnesium (10/19/2024 1:45 AM CDT) [facility] Magnesium 1.9 1.4 - 2.5 mg/dL Blood 10/19/2024 1:45 AM CDT 10/19/2024 1:51 AM CDT Evelyn Hernandez DO LAB BLOOD ORDERABLES [facility] al Result [facility] [address] [facility] [place] [address] * (ABNORMAL) Comprehensive metabolic panel (10/19/2024 1:45 AM CDT) Sodium 133(L) 135 - 145 mmol/L Potassium, pl 3.9 3.3 - 4.9 mmol/L [facility] Chloride 99 97 - 110 mmol/L [facility] CO2 24 22 - 32 mmol/L [facility] Anion gap 10 2 - 15 mmol/L [facility] BUN 17 6 - 25 mg/dL [facility] Creatinine 0.32(L) 0.80 - 1.30 mg/dL [facility] Glucose 327(H) 70 - 199 mg/dL [facility] Comment: Interpretive Data Fasting glucose >/= 126 mg/dl is diagnostic for diabetes. Fasting is defined as no caloric intake for at least 8 hours. Fasting glucose between 100 mg/dl to 125 mg/dl is diagnostic of prediabetes. In a patient with classic symptoms of hyperglycemia or hyperglycemic crisis, a random glucose >/= 200 mg/dl is diagnostic for diabetes. In the absence of unequivocal hyperglycemia, results should be confirmed by repeat testing. The classification and Diagnosis of Diabetes Diabetes Care 202; 46: S19-S40. Current interpretive data was last revised 2022. Calcium 9.1 8.5 - 10.3 mg/dL [facility] Bilirubin, total 0.4 0.1 - 1.2 mg/dL [facility] Protein, pl 6.3(L) 6.5 - 8.5 g/dL [facility] Albumin 3.6 3.5 - 5.0 g/dL [facility] Alk phos 75 40 - 130 Units/L [facility] ALT 14 7 - 55 Units/L [facility] AST 15 10 - 50 Units/L [facility] Blood 10/19/2024 1:45 AM CDT 10/19/2024 1:51 AM CDT Evelyn Hernandez DO LAB BLOOD ORDERABLES Fin al Result RAVI YU [facility] [place] [address] * (ABNORMAL) POCT glucose (10/18/2024 11:52 PM CDT) Glucose, POC 281(H) 70 - 199 mg/dL Glucose comment 1 Use This Result [facility] Glucose comment 2 RN/MD Notified [facility] Blood 10/18/2024 11:5 2 PM CDT 10/18/2024 11:52 PM CDT Evelyn Hernandez DO LAB POCT ORDERABLES - DE VICE Final Result Performing Organization Address City/[facility] Co de Phone Number RAVI [address] [address] * eGFR (10/18/2024 10:19 PM CDT) eGFR >90 >=60 mL/min/1. 73 m2 Comment: Interpretive Data Reference Interval Normal >/= 90 mL/min/1.73m2 Mildly decreased* 60 - 89 mL/min/1.73m2 Mildly to moderately decreased 45 - 59 mL/min/1.73m2 Moderately to severely decreased 30 - 44 mL/min/1.73m2 Severely decreased 15 - 29 mL/min/1.73m2 Kidney Failure < 15 mL/min/1.73m2 *Relative to young adult level Estimated glomerular filtration rate is determined by the 2020 CKD-EPI equation recommended by the National Kidney Foundation (A Unifying Approach to GFR Estimation: Recommendations of the NKF-ASK Task Force on Reassessing the Inclusion of Race in Diagnosing Kidney Disease, JASN 2020). The CKD-EPI equation should not be used for patients with unstable renal function and has not been validated in children and those over 70. Current interpretive data was last reviewed 2021. Blood 10/18/2024 10:1 9 PM CDT 10/18/2024 10:26 PM CDT Evelyn Hernandez DO LAB BLOOD ORDERABLES Fin al Result Performing Organization Address [facility] de Phone Number RAVI [address] [place] [address] * (ABNORMAL) Hemoglobin A1c (10/18/2024 10:19 PM CDT) Hgb A1C 15.8(H) 4.0 - 5.6 % Estimated Average Glucose 407 mg/dL [facility] Comment: The ADA recommends reporting an estimated Average Glucose (eAG) with all Hemoglobin A1c results using the equation derived from a study of 507 normal and diabetic adults. Minority populations were underrepresented and children were not included. (Diabetes Care 31:9220-2024, 2008). The eAG is not equivalent to a fasting glucose. Blood 10/18/2024 10:1 9 PM CDT 10/18/2024 10:21 PM CDT Evelyn Prabhakar Sherrillcharlene DO LAB BLOOD ORDERABLES Fin al Result Performing Organization Address [facility] de Phone Number RAVI [address] [address] * (ABNORMAL) Basic metabolic panel (10/18/2024 10:19 PM CDT) Pathologist [facility] Sodium 135 135 - 145 mmol/L Potassium, pl 3.4 3.3 - 4.9 mmol/L [facility] Chloride 100 97 - 110 mmol/L [facility] CO2 22 22 - 32 mmol/L [facility] Anion gap 13 2 - 15 mmol/L [facility] BUN 15 6 - 25 mg/dL [facility] Creatinine 0.42(L) 0.80 - 1.30 mg/dL [facility] Glucose 364(H) 70 - 199 mg/dL [facility] Comment: Delta - Results Reviewed Interpretive Data Fasting glucose >/= 126 mg/dl is diagnostic for diabetes. Fasting is defined as no caloric intake for at least 8 hours. Fasting glucose between 100 mg/dl to 125 mg/dl is diagnostic of prediabetes. In a patient with classic symptoms of hyperglycemia or hyperglycemic crisis, a random glucose >/= 200 mg/dl is diagnostic for diabetes. In the absence of unequivocal hyperglycemia, results should be confirmed by repeat testing. The classification and Diagnosis of Diabetes Diabetes Care 2021; 46: S19-S40. Current interpretive data was last revised 2022. Calcium 8.9 8.5 - 10.3 mg/dL RAVI Blood 10/18/2024 10:1 9 PM CDT 10/18/2024 10:21 PM CDT [facility] LAB BLOOD ORDERABLES Fin al Result Performing Organization Address [facility] Co de Phone Number [address] [address] * (ABNORMAL) POCT glucose (10/18/2024 10:00 PM CDT) Glucose, POC 429(H) 70 - 199 mg/dL Blood 10/18/2024 10:0 0 PM CDT 10/18/2024 10:00 PM CDT [facility] POCT ORDERABLES - DE VICE Final Result Performing Organization Address [facility] Phone Number [address] [address] * (ABNORMAL) POCT glucose (10/18/2024 9:28 PM CDT) Glucose, POC 416(H) 70 - 199 mg/dL Blood 10/18/2024 9:28 PM CDT 10/18/2024 9:28 PM CDT [facility] [place] LAB POCT ORDERABLES - DE VICE Final Result Performing Organization Address [facility] de Phone Number [address] [address] * (ABNORMAL) POCT glucose (10/18/2024 8:16 PM CDT) Glucose, POC 427(H) 70 - 199 mg/dL Blood 10/18/2024 8:16 PM CDT 10/18/2024 8:16 PM CDT Deo Alvarado MD LAB POCT ORDERABLES - CJ CE Final Result Performing Organization Address [facility] de Phone Number [address] [place] [address] * Troponin T high-sensitivity 2-hour (10/18/2024 7:14 PM CDT) [facility] Trop T hs 19 <=22 ng/L Comment: Interpretive Data For further hscTnT resources including the diagnostic algorithm and an aid in interpretation, copy and paste this link: https://nrl.testcatalog.org/show/hsTrop Current Interpretive Data last revised 2020. Trop T hs delta 5 ng/L [facility] Trop T hs interp Equivocal [facility] Blood 10/18/2024 7:14 PM CDT 10/18/2024 7:16 PM CDT Deo Alvarado MD LAB BLOOD ORDERABLES Final Result Performing Organization Address [facility] de Phone Number [address] [place] [address] * (ABNORMAL) POCT glucose (10/18/2024 7:07 PM CDT) [facility] Glucose, POC 543(C) 70 - 199 mg/dL Glucose comment 1 RN/MD Notified [facility] Blood 10/18/2024 7:07 PM CDT 10/18/2024 7:07 PM CDT Deo Alvarado MD LAB POCT ORDERABLES - CJ CE Final Result Performing Organization Address [facility] de Phone Number [address] [place] [address] * XR Chest 1 Vw Portable (if patient condition/safety warrant portable) (10/18/2024 5:35 PM CDT) Anatomical Region Laterality Modality Body, Chest N/A Computed Radiogr aphy 10/18/2024 6:36 PM CDT Narrative 10/18/2024 6:39 PM CDT EXAM DESCRIPTION: XR CHEST 1 VIEW REASON FOR STUDY: chest pain Pt here via EMS form home for sternal chest pain starting at 1600 today, pain 0/10 now, reports long hx MD and DM, EMS gave 3 ASA as pt previously took 1 baby ASA [employer], EMS reports pt was noted to have BP 70/50s, diaphoretic, run of SVT with rate 180s, resolved on its own after IVF TECHNIQUE: Single radiographic view(s) of the chest. COMPARISON: 06/12/2024 FINDINGS: LUNGS: Similar appearance of mild chronic interstitial changes. No new pulmonary opacities appreciated. No sizable pleural effusion or pneumothorax. HEART/MEDIASTINUM: Cardiac silhouette normal in size. Mediastinal and hilar contours appear normal. LINES/TUBES: None. BONES: No acute osseous abnormality. IMPRESSION: Similar appearance of mild chronic interstitial changes. No new pulmonary opacities appreciated. THIS IS AN ELECTRONICALLY VERIFIED FINAL REPORT 10/18/2024 6:39 PM - Electronically signed by Evelio Yang M.D. AM T: Report ID: [id number] Reading Location: [id number] Procedure Note Evelio Yang MD - 10/18/2024 EXAM DESCRIPTION: XR CHEST 1 VIEW REASON FOR STUDY: chest pain Pt here via EMS form home for sternal chest pain starting at 1600 today, pain 0/10 now, reports long hx MD and DM, EMS gave 3 ASA as pt previouslytook 1 baby ASA [employer], EMS reports pt was noted to have BP 70/50s, diaphoretic,run of SVT with rate 180s, resolved on its own after IVF TECHNIQUE: Single radiographic view(s) of the chest. COMPARISON: 06/12/2024 FINDINGS: LUNGS: Similar appearance of mild chronic interstitial changes.No new pulmonary opacities appreciated. No sizable pleural effusion or pneumothorax. HEART/MEDIASTINUM: Cardiac silhouette normal in size. Mediastinal andhilar contours appear normal. LINES/TUBES: None. BONES: No acute osseous abnormality. IMPRESSION: Similar appearance of mild chronic interstitial changes. Nonew pulmonary opacities appreciated. THIS IS AN ELECTRONICALLY VERIFIED FINAL REPORT 10/18/2024 6:39 PM - Electronically signed by Evelio Yang M.D. AM T: Report ID: [id number] Reading Location: [id number] Deo Alvarado MD IMG XR PROCEDURES Final Re sult * Troponin T high-sensitivity series (baseline, 2hr, 4hr, 6hr) (10/18/2024 5:31 PM CDT) Pathologist [facility] Trop T hs 14 <=22 ng/L Comment: Interpretive Data For further hscTnT resources including the diagnostic algorithm and an aid in interpretation, copy and paste this link: https://nrl.testcatalog.org/show/hsTrop Current Interpretive Data last revised 2020. Blood 10/18/2024 5:31 PM CDT 10/18/2024 5:47 PM CDT Deo Alvarado MD LAB BLOOD ORDERABLES Final Result [facility] [address] [facility] [place] [address] * eGFR (10/18/2024 5:31 PM CDT) Pathologist [facility] eGFR >90 >=60 mL/min/1. 73 m2 Comment: Interpretive Data Reference Interval Normal >/= 90 mL/min/1.73m2 Mildly decreased* 60 - 89 mL/min/1.73m2 Mildly to moderately decreased 45 - 59 mL/min/1.73m2 Moderately to severely decreased 30 - 44 mL/min/1.73m2 Severely decreased 15 - 29 mL/min/1.73m2 Kidney Failure < 15 mL/min/1.73m2 *Relative to young adult level Estimated glomerular filtration rate is determined by the 2021 CKD-EPI equation recommended by the National Kidney Foundation (A Unifying Approach to GFR Estimation: Recommendations of the NKF-ASK Task Force on Reassessing the Inclusion of Race in Diagnosing Kidney Disease, JASN 2020). The CKD-EPI equation should not be used for patients with unstable renal function and has not been validated in children and those over 70. Current interpretive data was last reviewed 2021. Blood 10/18/2024 5:31 PM CDT 10/18/2024 5:47 PM CDT us Deo Alvarado MD LAB BLOOD ORDERABLES Final Result [facility] [address] [facility] [place] [address] * Differential, auto (10/18/2024 5:31 PM CDT) Pathologist [facility] Neutrophil abs 5.0 1.5 - 6.5 K/cumm Imm gran abs 0.0 0.0 - 0.1 K/cumm [facility] Lymphocyte abs 1.2 0.8 - 3.3 K/cumm [facility] Monocyte abs 0.7 0.2 - 0.8 K/cumm [facility] Eosinophil abs 0.1 0.0 - 0.5 K/cumm [facility] Basophil abs 0.0 0.0 - 0.1 K/cumm [facility] Neutrophil pct 71.5 % [facility] Comment: Interpretive Data Percent cell count reference ranges are not reported, since discordance with absolute values may lead to misinterpretation of CBC data. Current Interpretive Data was last revised on 2017. Imm gran pct 0.3 % [facility] Comment: Interpretive Data Percent cell count reference ranges are not reported, since discordance with absolute values may lead to misinterpretation of CBC data. Current Interpretive Data was last revised on 2017. Lymphocyte pct 16.8 % [facility] Comment: Interpretive Data Percent cell count reference ranges are not reported, since discordance with absolute values may lead to misinterpretation of CBC data. Current Interpretive Data was last revised on 2017. Monocyte pct 9.5 % [facility] Comment: Interpretive Data Percent cell count reference ranges are not reported, since discordance with absolute values may lead to misinterpretation of CBC data. Current Interpretive Data was last revised on 2017. Eosinophil pct 1.6 % [facility] Comment: Interpretive Data Percent cell count reference ranges are not reported, since discordance with absolute values may lead to misinterpretation of CBC data. Current Interpretive Data was last revised on 2017. Basophil pct 0.3 % [facility] Comment: Interpretive Data Percent cell count reference ranges are not reported, since discordance with absolute values may lead to misinterpretation of CBC data. Current Interpretive Data was last revised on 2017. Blood 10/18/2024 5:31 PM CDT 10/18/2024 5:47 PM CDT us Deo Alvarado MD LAB BLOOD ORDERABLES Final Result [facility] [address] [facility] [place] [address] * (ABNORMAL) CBC with auto differential (10/18/2024 5:31 PM CDT) WBC 6.9 3.8 - 9.9 K/cumm Hgb 16.2 13.0 - 17.5 g/dL [facility] Hct 47.4 38.9 - 50.3 % [facility] Plt 213 150 - 400 K/cumm [facility] MPV 9.0(L) 9.1 - 12.3 fL [facility] RBC 5.47 4.30 - 5.80 M/cumm [facility] MCV 86.7 81.3 - 96.4 fL [facility] MCH 29.6 27.1 - 33.3 pg [facility] MCHC 34.2 32.3 - 35.7 g/dL [facility] RDW CV 13.3 11.1 - 14.9 % [facility] RDW SD 41.5 35.7 - 48.1 fL [facility] NRBC abs 0.00 0.00 - 0.01 K/cumm [facility] Blood Venous blood specimen / Unknown 10/18/2024 5:31 PM CDT 10/18/2024 5:47 PM CDT Deo Alvarado MD LAB BLOOD ORDERABLES Final Result Performing Organization Address [facility] Co de Phone Number RAVI [address] [address] * Protime-INR (10/18/2024 5:31 PM CDT) PT 13.6 12.0 - 14.6 sec INR 1.0 0.9 - 1.2 [facility] Comment: Ref Range High Interpretive data Oral anticoagulant therapeutic ranges: Venous thromboembolism prophylaxis or treatment: 2.0-3.0 CARDIOLOGY Standard range: 2.0-3.0 High-intensity range: 2.5-3.5 Refer to indication-specific guidelines for appropriate target ranges for prosthetic heart valve replacement. Current interpretive data was last revised on 2019. Blood 10/18/2024 5:31 PM CDT 10/18/2024 5:47 PM CDT Deo Alvarado MD LAB BLOOD ORDERABLES Final Result Performing Organization Address [facility] de Phone Number RAVI [address] [address] * (ABNORMAL) Comprehensive metabolic panel (10/18/2024 5:31 PM CDT) Sodium 130(L) 135 - 145 mmol/L Potassium, pl 4.3 3.3 - 4.9 mmol/L [facility] Chloride 90(L) 97 - 110 mmol/L [facility] CO2 22 22 - 32 mmol/L [facility] Anion gap 18(H) 2 - 15 mmol/L [facility] BUN 15 6 - 25 mg/dL [facility] Creatinine 0.37(L) 0.80 - 1.30 mg/dL [facility] Glucose 535(C) 70 - 199 mg/dL [facility] Comment: Critical Result called to and read back by [id number], DATE: 2024-10-18 18:26:17 BY: [id number] Interpretive Data Fasting glucose >/= 126 mg/dl is diagnostic for diabetes. Fasting is defined as no caloric intake for at least 8 hours. Fasting glucose between 100 mg/dl to 125 mg/dl is diagnostic of prediabetes. In a patient with classic symptoms of hyperglycemia or hyperglycemic crisis, a random glucose >/= 200 mg/dl is diagnostic for diabetes. In the absence of unequivocal hyperglycemia, results should be confirmed by repeat testing. The classification and Diagnosis of Diabetes Diabetes Care 2021; 46: S19-S40. Current interpretive data was last revised 2022. Calcium 10.1 8.5 - 10.3 mg/dL [facility] Bilirubin, total 0.4 0.1 - 1.2 mg/dL [facility] Protein, pl 7.2 6.5 - 8.5 g/dL [facility] Albumin 4.1 3.5 - 5.0 g/dL [facility] Alk phos 94 40 - 130 Units/L [facility] ALT 13 7 - 55 Units/L [facility] AST 15 10 - 50 Units/L [facility] Blood 10/18/2024 5:31 PM CDT 10/18/2024 5:47 PM CDT us Deo Alvarado MD LAB BLOOD ORDERABLES Final Result [facility] [address] [facility] [place] [address] * ECG 12 lead (10/18/2024 5:29 PM CDT) Pathologist [facility] Ventricular Rate EKG/Min 99 BPM [facility] Atrial Rate 99 BPM [facility] MO-Interval (MSEC) 122 ms [facility] QRS-Interval (MSEC) 82 ms [facility] QT-Interval (MSEC) 354 ms [facility] QTc 454 ms [facility] P [place] 74 degrees [facility] R [place] 0 degrees [facility] T [place] 67 degrees [facility] Diagnosis Normal sinus rhythm Possible Left atrial enlargement Borderline ECG When compared with ECG of 12-JUN-2024 04:31, Sinus rhythm has replaced Atrial fibrillation Vent. rate has decreased BY [address] no longer depressed in Inferior leads ST no longer depressed in Anterolateral leads Confirmed by LUCRECIA RODRIGUEZ M.D. ([id number]) on 10/21/2024 9:50:25 AM [facility] [employer] 10/18/2024 5:29 PM CDT 10/21/2024 9:50 AM CDT us Deo Alvarado MD ECG ORDERABLES Final Resu lt [facility] [employer] [facility] * US Duplex Scan of Aorta; Inferior Vena Cava, Iliac, Complete (10/14/2024 1:59 PM CDT) Anatomical Region Laterality Modality Vascular Ultrasound 10/14/2024 1:25 PM CDT Narrative 10/16/2024 10:22 AM CDT Abdominal Aortic Duplex Ultrasound Report Patient Name: ORAL HARRIS J : 1955 Study Date: 10/14/2024 1:25:22 PM Gender: M Quality Control Checker: Tiffany Rose Provider: EUSEBIO JARRELL Quality: Adequate Order Provider: EUSEBIO JARRELL PROCEDURES: Arterial Report: Duplex ultrasound imaging of the abdominal aorta. INDICATIONS: I71.43 Infrarenal abdominal aortic aneurysm, without rupture. COMPARISONS: No prior exams. MEASUREMENTS: Velocities Value Diameters Value Aorta Prx PSV 61.00 cm/sec Aorta Prx Trans Dim 3.4 x 2.8 cm Aorta Mid PSV 27.00 cm/sec Aorta Mid Trans Dim 3.0 x 2.9 cm Aorta Dst PSV 33.00 cm/sec Aorta Dst Trans Dim 3.4 x 2.7 cm Rt Com Iliac Prx PSV 143.00 cm/sec Rt Com Iliac Prx Trans Dim 1.1 x 1.2 cm Lt Com Iliac Prx PSV 87.00 cm/sec Lt Com Iliac Prx Trans Dim 1.2 x 1.1 cm MEASUREMENTS: FINDINGS: Study Quality: Adequate. study somewhat difficult due to bowel gas. CONCLUSIONS: 1. Abdominal aortic aneurysm, maximum diameter 3.4 cm. ATTESTATION: I have reviewed and interpreted the pertinent images and measurements of this study. I attest to the conclusions in the final report that is provided above. Electronically Signed By: Eusebio Jarrell MD 10/16/2024 9:57:15 AM CDT Procedure Note Eusebio Jarrell MD - 10/16/2024 Abdominal Aortic Duplex Ultrasound Report Patient Name: ORAL HARRIS J : 1955 Study Date: 10/14/2024 1:25:22 PM Gender: M Quality Control Checker: Tiffany Rose Provider: EUSEBIO JARRELL Quality: Adequate Order Provider: EUSEBIO JARRELL PROCEDURES: Arterial Report: Duplex ultrasound imaging of the abdominal aorta. INDICATIONS: I71.43 Infrarenal abdominal aortic aneurysm, without rupture. COMPARISONS: No prior exams. MEASUREMENTS: Velocities Value Diameters Value Aorta Prx PSV 61.00 cm/sec Aorta Prx Trans Dim 3.4 x 2.8 cm Aorta Mid PSV 27.00 cm/sec Aorta Mid Trans Dim 3.0 x 2.9 cm Aorta Dst PSV 33.00 cm/sec Aorta Dst Trans Dim 3.4 x 2.7 cm Rt Com Iliac Prx PSV 143.00 cm/sec Rt Com Iliac Prx Trans Dim 1.1 x 1.2cm Lt Com Iliac Prx PSV 87.00 cm/sec Lt Com Iliac Prx Trans Dim 1.2 x 1.1cm MEASUREMENTS: FINDINGS: Study Quality: Adequate. study somewhat difficult due to bowel gas. CONCLUSIONS: 1. Abdominal aortic aneurysm, maximum diameter 3.4 cm. ATTESTATION: I have reviewed and interpreted the pertinent images and measurements ofthis study. I attest to the conclusions in the final report that is provided above. Electronically Signed By: Eusebio Jarrell MD 10/16/2024 9:57:15 AM CDT us Eusebio Jarrell MD IMG US PROCEDURES Final Result * US Arterial Doppler Lower Extremity Bilateral (10/14/2024 1:59 PM CDT) Anatomical Region Laterality Modality Vascular Bilateral Ultrasound 10/14/2024 1:12 PM CDT Narrative 10/15/2024 2:05 PM CDT Lower Extremity Arterial Doppler Report Patient Name: ORAL HARRIS J : 1955 Study Date: 10/14/2024 1:12:00 PM Gender: M Quality Control Checker: Tiffany Carrasco RVT Ref Provider: EUSEBIO JARRELL Quality: Adequate Order Provider: EUSEBIO JARRELL PROCEDURES: Arterial Report: Bilateral lower extremity arterial Doppler exam at rest. INDICATIONS: I73.9 Peripheral vascular disease, unspecified. HISTORY: Right leg above knee amputation. COMPARISONS: The previous exam was completed on 12/01/22. MEASUREMENTS: Right Value Left Value Rt Brachial Pressure 159 mmHg Lt Brachial Pressure 102 mmHg Lt Calf Pressure 88 mmHg Lt UNDERWATER ROBOTICIST Pressure 94 mmHg Lt DPA Pressure 89 mmHg Lt 1st Digit Pressure sensor malfunction mmHg Lt PT ARNEL Resting 0.59 Lt DP ARNEL Resting 0.56 FINDINGS: Right Digits: sensor malfunction not able to get waveform. Left Common Femoral Artery Analysis: The common femoral artery waveform is triphasic. Left Popliteal Artery Analysis: The popliteal waveform is biphasic. pop art sounds biphasic, venous interference. Left Posterior Tibial Artery Analysis: The posterior tibial waveform is monophasic. left dpa is monophasic. CONCLUSIONS: 1. Ankle-brachial index of 0.5-0.8 is consistent with claudication and a moderate occlusive arterial disease in the left lower extremity. 2. There is evidence of left leg arterial insufficiency at the level of aorta- iliac, common femoral (inflow) arteries. ATTESTATION: I have reviewed and interpreted the pertinent images and measurements of this study. I attest to the conclusions in the final report that is provided above. Electronically Signed By: Eusebio Jarrell MD 10/15/2024 1:24:56 PM CDT Procedure Note Eusebio Jarrell MD - 10/15/2024 Lower Extremity Arterial Doppler Report Patient Name: ORAL HARRIS J : 1955 Study Date: 10/14/2024 1:12:00 PM Gender: M Quality Control Checker: Tiffany Carrasco RVT Ref Provider: EUSEBIO JARRELL Quality: Adequate Order Provider: EUSEBIO JARRELL PROCEDURES: Arterial Report: Bilateral lower extremity arterial Doppler exam at rest. INDICATIONS: I73.9 Peripheral vascular disease, unspecified. HISTORY: Right leg above knee amputation. COMPARISONS: The previous exam was completed on 12/01/22. MEASUREMENTS: Right Value Left Value Rt Brachial Pressure 159 mmHg Lt Brachial Pressure 102 mmHg Lt Calf Pressure 88 mmHg Lt UNDERWATER ROBOTICIST Pressure 94 mmHg Lt DPA Pressure 89 mmHg Lt 1st Digit Pressure sensor malfunction mmHg Lt PT ARNEL Resting 0.59 Lt DP ARNEL Resting 0.56 FINDINGS: Right Digits: sensor malfunction not able to get waveform. Left Common Femoral Artery Analysis: The common femoral artery waveform is triphasic. Left Popliteal Artery Analysis: The popliteal waveform is biphasic. pop art sounds biphasic, venousinterference. Left Posterior Tibial Artery Analysis: The posterior tibial waveform is monophasic. left dpa is monophasic. CONCLUSIONS: 1. Ankle-brachial index of 0.5-0.8 is consistent with claudication and amoderate occlusive arterial disease in the left lower extremity. 2. There is evidence of left leg arterial insufficiency at the level ofaorta- iliac, common femoral (inflow) arteries. ATTESTATION: I have reviewed and interpreted the pertinent images and measurements ofthis study. I attest to the conclusions in the final report that is provided above. Electronically Signed By: Eusebio Jarrell MD 10/15/2024 1:24:56 PM CDT us Eusebio Jarrell MD IMG US PROCEDURES Final Result * Thyroid Function [place] (11/30/2023 7:45 AM CDT) TSH 1.44 0.30 - 4.20 mcIUnit/mL Blood 11/30/2023 7:45 AM CDT 11/30/2023 7:51 AM CDT us Efrain Spain MD LAB BLOOD ORDERABLES Final Result [facility] [id number] [facility] [place] [address] * CTA Abdominal Aorta And Bilateral Iliofemoral Runoff (10/25/2022 4:50 PM CDT) Anatomical Region Laterality Modality Body Bilateral Computed Tomogra phy 10/25/2022 5:08 PM CDT Narrative 10/25/2022 5:21 PM CDT EXAM DESCRIPTION: CTA ABDOMINAL AORTA AND BILATERAL ILIOFEMORAL RUNOFF REASON FOR STUDY: right leg pain, recent stent and thrombectomy Patient presents to ED with complaints of post surgical complications, stated he had blood clots removed from right lower extremity through groin at this facility. He now states pain is back, calf and foot is swollen. Pedal pulses present right foot. Patient was not cooperative. Refused to follow breathing instructions. Patient moved and crossed his strapped ankles in first Without scan and tech could not see due to position of gantry. Had to go into scan room multiple times to reposition and repeat instructions. Best achievable images TECHNIQUE: CTA of the abdominal aorta with bilateral lower extremity runoff was performed without and with intravenous contrast using helical scanning technique. Precontrast and arterial images were obtained of the lower extremities. Images reviewed with soft tissue and bone windows. Reconstructed coronal and sagittal MPR images reviewed. All images stored on PACS. 3D MIP images rendered on scanning unit and reviewed at time of interpretation. Automated exposure control was used as a dose optimization technique for this examination. CONTRAST TYPE/DOSE: 100mL of IOVERSOL 350 MG IODINE/ML INTRAVENOUS SYRINGE injected via intravenous COMPARISON: 10/18/2022 FINDINGS: VASCULATURE: NON-CONTRASTED IMAGING: Moderately severe atherosclerotic calcifications. ABDOMINAL AORTA: Fusiform aneurysmal dilatation redemonstrated measuring up to 3.5 cm without surrounding induration. No stenosis of the lumen. MESENTERIC/RENAL: Overall limited visualization due to poor contrast enhancement. No flowing limiting disease. Single bilateral renal arteries. No anatomic variation of the mesenteric vessels. PELVIC VASCULATURE: Common/external iliac arteries: No dissection, aneurysm, intramural hematoma, rupture, or penetrating atherosclerotic ulcer. No flow limiting disease. Internal iliac arteries: No dissection, aneurysm or flow limiting disease. RIGHT LOWER EXTREMITY VASCULATURE: The right common femoral patent atherosclerotic changes but no high-grade stenosis. It bifurcates with patent femoral artery. Right superficial femoral artery is patent through the adductor canal. Proximal popliteal artery now contains a vascular stent obscures detail of the lumen though it appears patent with contrast proximal and distal to the stent. No surrounding induration, fluid collection or unusual enhancing lesion here. The distal popliteal artery and trifurcation vessels appear patent as best visualized and unchanged. No distal emboli are visualized. LEFT LOWER EXTREMITY VASCULATURE: The left common femoral artery is patent with patent profunda femoral artery. The superficial femoral artery on the left is occluded from its origin and unchanged from previous. The left popliteal artery reconstitutes through the adductor canal is patent to its trifurcation with normal three-vessel distal runoff. Unchanged. ABDOMEN/PELVIS: LOWER CHEST: No significant pulmonary abnormalities. No effusion. LIVER: Normal size. No identified cystic or solid masses. No cysts. GALLBLADDER: Normally distended BILE DUCTS: No intrahepatic or extrahepatic ductal dilatation. SPLEEN: Normal size. No focal lesions. PANCREAS: No identified cystic or solid masses. No significant calcifications. No adjacent inflammation or peripancreatic fluid collections. Pancreatic duct not dilated. ADRENALS: Normal. KIDNEYS/URINARY TRACT: No identified cystic or solid masses. No cysts. No stones. No hydronephrosis or hydroureter. Symmetric enhancement. Normal bladder. GI: No dilated bowel loops. No obvious wall thickening. Normal appendix. No significant diverticular disease. PERITONEUM: No ascites or free air. RETROPERITONEUM: No mass or adenopathy. REPRODUCTIVE: No significant abnormality. MUSCULOSKELETAL: Bilateral L5 spondylolysis with minimal anterolisthesis unchanged OTHER: No other abnormality. IMPRESSION: The right superficial femoral and popliteal artery appear patent through previously stented portion with no surrounding induration or other acute change. No distal embolus identified. Groin regions demonstrate no hematoma or pseudoaneurysm as best visualized. THIS IS AN ELECTRONICALLY VERIFIED FINAL REPORT 10/25/2022 5:21 PM - Electronically signed by Micah GONZALEZ T: Report ID: [id number] Reading Location: [place] [address] Procedure Note Micah Huerta MD - 10/25/2022 EXAM DESCRIPTION: CTA ABDOMINAL AORTA AND BILATERAL ILIOFEMORAL RUNOFF REASON FOR STUDY: right leg pain, recent stent and thrombectomy Patient presents to ED with complaints of post surgical complications,stated he had blood clots removed from right lower extremity through groin atthis facility. He now states pain is back, calf and foot is swollen. Pedalpulses present right foot. Patient was not cooperative. Refused to followbreathing instructions. Patient moved and crossed his strapped ankles in firstWithout scan and tech could not see due to position of gantry. Had to go intoscan room multiple times to reposition and repeat instructions. Bestachievable images TECHNIQUE: CTA of the abdominal aorta with bilateral lower extremityrunoff was performed without and with intravenous contrast using helicalscanning technique. Precontrast and arterial images were obtained of the lower extremities. Images reviewed with soft tissue and bone windows. Reconstructed coronal and sagittal MPR images reviewed. All images storedon PACS. 3D MIP images rendered on scanning unit and reviewed at time of interpretation. Automated exposure control was used as a doseoptimization technique for this examination. CONTRAST TYPE/DOSE: 100mL of IOVERSOL 350 MG IODINE/ML INTRAVENOUSSYRINGE injected via intravenous COMPARISON: 10/18/2022 FINDINGS: VASCULATURE: NON-CONTRASTED IMAGING: Moderately severe atheroscleroticcalcifications. ABDOMINAL AORTA: Fusiform aneurysmal dilatation redemonstrated measuringup to 3.5 cm without surrounding induration. No stenosis of the lumen. MESENTERIC/RENAL: Overall limited visualization due to poor contrast enhancement. No flowing limiting disease. Single bilateral renalarteries. No anatomic variation of the mesenteric vessels. PELVIC VASCULATURE: Common/external iliac arteries: No dissection, aneurysm, intramural hematoma, rupture, or penetrating atherosclerotic ulcer. No flow limiting disease. Internal iliac arteries: No dissection, aneurysm or flow limitingdisease. RIGHT LOWER EXTREMITY VASCULATURE: The right common femoral patent atherosclerotic changes but no high-grade stenosis. It bifurcates with patent femoral artery. Right superficial femoral artery is patent through the adductor canal. Proximal popliteal artery now contains a vascular stent obscures detail of the lumen thoughit appears patent with contrast proximal and distal to the stent. Nosurrounding induration, fluid collection or unusual enhancing lesion here. The distal popliteal artery and trifurcation vessels appear patent as best visualized and unchanged. No distal emboli are visualized. LEFT LOWER EXTREMITY VASCULATURE: The left common femoral artery is patent with patent profunda femoralartery. The superficial femoral artery on the left is occluded from its origin and unchanged from previous. The left popliteal artery reconstitutes throughthe adductor canal is patent to its trifurcation with normal three-vesseldistal runoff. Unchanged. ABDOMEN/PELVIS: LOWER CHEST: No significant pulmonary abnormalities. No effusion. LIVER: Normal size. No identified cystic or solid masses. No cysts. GALLBLADDER: Normally distended BILE DUCTS: No intrahepatic or extrahepatic ductal dilatation. SPLEEN: Normal size. No focal lesions. PANCREAS: No identified cystic or solid masses. No significant calcifications. No adjacent inflammation or peripancreatic fluidcollections. Pancreatic duct not dilated. ADRENALS: Normal. KIDNEYS/URINARY TRACT: No identified cystic or solid masses. No cysts.No stones. No hydronephrosis or hydroureter. Symmetric enhancement. Normal bladder. GI: No dilated bowel loops. No obvious wall thickening. Normalappendix. No significant diverticular disease. PERITONEUM: No ascites or free air. RETROPERITONEUM: No mass or adenopathy. REPRODUCTIVE: No significant abnormality. MUSCULOSKELETAL: Bilateral L5 spondylolysis with minimal anterolisthesis unchanged OTHER: No other abnormality. IMPRESSION: The right superficial femoral and popliteal artery appearpatent through previously stented portion with no surrounding induration or other acute change. No distal embolus identified. Groin regions demonstrate no hematoma or pseudoaneurysm as bestvisualized. THIS IS AN ELECTRONICALLY VERIFIED FINAL REPORT 10/25/2022 5:21 PM - Electronically signed by Micah GONZALEZ T: Report ID: [id number] Reading Location: [place] [address] Viri Harrison DO [facility] CT PROCEDURES Final Result * (ABNORMAL) Lipid panel (09/14/2022 1:43 AM VENDING STAND SUPERVISOR) Cholesterol 158 30 - 199 mg/dL [facility] Comment: Interpretive Data Ages < or = 19 years Acceptable: <170 mg/dL Borderline high: 170-199 mg/dL High: >or= 200 mg/dL Ages > or = 20 years Desirable: <200 mg/dL Borderline high: 200-239 mg/dL High: >or= 240 mg/dL Literature References: 1. Expert Panel on Integrated Guidelines for Cardiovascular Health and Risk Reduction in Children and Adolescents. Pediatrics 2011;128:S213 2. NCEP Expert Panel. Circulation 2004;110:227 Current Interpretive Data was last revised on 2018. Triglycerides 94 <=149 mg/dL [facility] Comment: Interpretive Data Ages < or = 9 years Acceptable: <75 mg/dL Borderline high: 75-99 mg/dL High: >or= 100 mg/dL Ages 10 to 20 years Acceptable: <90 mg/dL Borderline high: 90-129 mg/dL High: >or= 130 mg/dL Ages > or = 20 years Desirable: <150 mg/dL Borderline high: 150-199 mg/dL High: 200-499 mg/dL Very high: >or= 499 mg/dL Literature References: 1. Expert Panel on Integrated Guidelines for Cardiovascular Health and Risk Reduction in Children and Adolescents. Pediatrics 2011;128:S213 2. NCEP Expert Panel. Circulation 2004;110:227 Current Interpretive Data was last revised on 2018. HDL 31(L) >=40 mg/dL [facility] Comment: Interpretive Data Ages < or = 19 years Acceptable: >45 mg/dL Borderline low: 40-45 mg/dL Low: <40 mg/dL Ages > or = 20 years Desirable: >or= 60 mg/dL Low: <40 mg/dL Literature References: 1. Expert Panel on Integrated Guidelines for Cardiovascular Health and Risk Reduction in Children and Adolescents. Pediatrics 2011;128:S213 2. NCEP Expert Panel. Circulation 2004;110:227 Current Interpretive Data was last revised on 2018. LDL, calculated 108 <=129 mg/dL [facility] Comment: Interpretive Data Ages < or = 19 years Acceptable: <110 mg/dL Borderline high: 110-129 mg/dL High: >or= 130 mg/dL Ages > or = 20 years Optimal: <100 mg/dL Near optimal: 100-129 mg/dL Borderline high: 130-159 mg/dL High: >160 mg/dL Literature References: 1. Expert Panel on Integrated Guidelines for Cardiovascular Health and Risk Reduction in Children and Adolescents. Pediatrics 2011;128:S213 2. NCEP Expert Panel. Circulation 2004;110:227 Current Interpretive Data was last revised on 2018. Non-HDL Cholesterol 127 mg/dL [facility] YU Comment: Interpretive Data Ages < or = 19 years Acceptable: <120 mg/dL Borderline high: 120-144 mg/dL High: >145 mg/dL Ages > or = 20 years When triglycerides are >200 mg/dL, Non-HDL cholesterol is a secondary target of therapy with treatment goals that are 30 mg/dL greater than the LDL cholesterol target. Literature References: 1. Expert Panel on Integrated Guidelines for Cardiovascular Health and Risk Reduction in Children and Adolescents. Pediatrics 2011;128:S213 2. NCEP Expert Panel. Circulation 2004;110:227 Current Interpretive Data was last revised on 2018. Chol/HDL ratio 5 [facility] Blood 09/14/2022 1:43 AM VENDING STAND SUPERVISOR 09/14/2022 1:47 AM VENDING STAND SUPERVISOR Aundrea Mello INFORMATION SYSTEMS SECURITY MANAGER LAB BLOOD ORDERABLES nal Result [facility] [address] [facility] [place] [address] from Last 3 Months or Most Recently Relevant to Health Maintenance [place] [address] [address] MEDICARE ADVANTAGE IDPA IDPA [facility] MEDICARE ADVANTAGE Advance Directives For more information, please contact: [phone] * LIMITED - PEDIATRICS (Latest Code Status on File) Date Activated Date Inactivated Comments 10/18/2024 10:49 PM 10/20/2024 12:43 AM Question Answer Comments Restrictions: No bag-maskNo cardio version / defibrillationNo chest compressionsNo intubation / mechanical ventilationNo resuscitative medications box * Full Code Date Activated Date Inactivated Comments 10/18/2024 9:08 PM 10/18/2024 10:49 PM * Full Code Date Activated Date Inactivated Comments 06/12/2024 7:53 AM 06/12/2024 11:56 PM * LIMITED - No CPR Date Activated Date Inactivated Comments 11/30/2023 6:57 AM 12/01/2023 2:27 PM Question Answer Comments Provide aggressive medical m anagement before a full cardiopulmonary arrest occurs. Use antibiotics, IV Fluids, and medical treatment unless specifically selected below: No intubation * LIMITED - No CPR Date Activated Date Inactivated Comments 06/16/2023 6:11 PM 06/17/2023 10:03 PM Question Answer Comments Provide aggressive medical m anagement before a full cardiopulmonary arrest occurs. Use antibiotics, IV Fluids, and medical treatment unless specifically selected below: No intubation Discussed with the following attending physician : [facility] Care Teams Cemetery Vault Installer Relationship Specialty Start Date End Date Yamilet Patiño NP [address] [place] [id number] PCP - General Family Medicine 10/14/24 No, Physician 10/05/22 Tavares Jarrell MD [address] [place] [address] [address] Surgeon Vascular Surgery 11/07/22 Eusebio Jarrell MD [address] [place] [address] [place] [id number] Consulting Physician Vascular Surgery 02/18/23
--- OUTSIDE RECORDS SUMMARY | 2024-11-25 03:52 | XMS_ITS | Patient Health Record ---
Author Organization Formerly [facility] Address [address] [place] [address] Care Team Providers Care Color Stripper Name Role Phone Jonathan Salmeron Primary Care Provider [phone] KaylynYamilet Unavailable [phone] Allergies No Known Allergies Results Component Value Reference Range Notes Glu+PSA+Hb A1c+TestT+TestF+. .. Reviewed date:10/24/2024 02:44:27 PM Interpretation: Performing Lab:[facility] [place], [address] [place] [address], Phone - [phone], Director - Justin Notes/Report: Called/faxed to ESTEFANI Lee RN on 10/08/2024 at 16:19 ET for test Glucose Glucose 516 70-99 mg/dL Verified by r epeat analysis Hemoglobin A1c 15.3 4.8-5.6 % . Prediabetes: 5.7 - 6.4 Diabetes: >6.4 Glycemic control for adults with diabetes: <7.0 Prostate Specific Ag 0.7 0.0-4.0 ng/mL Brando ECLIA methodology. . According to the [place] [employer], Serum PSA should decrease and remain at undetectable levels after radical prostatectomy. The AUA defines biochemical recurrence as an initial PSA value 0.2 ng/mL or greater followed by a subsequent confirmatory PSA value 0.2 ng/mL or greater. Values obtained with different assay methods or kits cannot be used interchangeably. Results cannot be interpreted as absolute evidence of the presence or absence of malignant disease. PSA, Free 0.10 N/A ng/mL Brando ECLIA met hodology. % Free PSA 14.3 The table below lists the probability of prostate cancer for men with non-suspicious EULALIA results and total PSA between 4 and 10 ng/mL, by patient age (Ketty et al, CHAYO 1998, 279:1542). % Free PSA 50-64 yr 65-75 yr 0.00-10.00% 56% 55% 10.01-15.00% 24% 35% 15.01-20.00% 17% 23% 20.01-25.00% 10% 20% >25.00% 5% 9% Please note: Ketty et al did not make specific recommendations regarding the use of percent free PSA for any other population of men. Testosterone 218 264-916 ng/dL Adult male reference interval is based on a population of healthy nonobese males (BMI <30) between 19 and 39 years old. melody iDckson.al. JCEM 2017,102;1333-6732. PMID: 76559752. Free Testosterone(Direct) 6.8 6.6-18.1 pg/mL Lipid Panel* Reviewed date:10/24/2024 02:44:27 PM Interpretation: Performing Lab:[facility] [address] [facility], Phone - [phone], Director - [facility] Notes/Report: Called/faxed to ESTEFANI Lee RN on 10/08/2024 at 16:19 ET for test Glucose Cholesterol, Total 205 100-199 mg/dL Triglycerides 296 0-149 mg/dL HDL Cholesterol 28 >39 mg/dL VLDL Cholesterol Arturo 53 5-40 mg/dL LDL Chol Calc ([facility]) 124 0-99 mg/dL CMP 14 Comprehensive Metabol ic Panel* Reviewed date:10/24/2024 02:44:27 PM Interpretation: Performing Lab:[facility] [place] [address] [facility], [place], Phone - [phone], Director - PhDLior Notes/Report: Called/faxed to ESTEFANI Lee RN on 10/08/2024 at 16:19 ET for test Glucose BUN 13 8-27 mg/dL Creatinine 0.58 0.76-1.27 mg/dL eGFR 106 >59 mL/min/1.73 BUN/Creatinine Ratio 22 10-24 Sodium 131 134-144 mmol/L Potassium 4.3 3.5-5.2 mmol/L Chloride 95 96-106 mmol/L Carbon Dioxide, Total 23 20-29 mmol/L Calcium 9.3 8.6-10.2 mg/dL Protein, Total 6.6 6.0-8.5 g/dL Albumin 4.1 3.9-4.9 g/dL Globulin, Total 2.5 1.5-4.5 g/dL Bilirubin, Total 0.3 0.0-1.2 mg/dL Alkaline Phosphatase 89 44-121 IU/L AST (SGOT) 15 0-40 IU/L ALT (SGPT) 15 0-44 IU/L Vitamin B12 and Folate Reviewed date:10/24/2024 02:44:27 PM Interpretation: Performing Lab:[facility], Phone - [phone], [facility] Notes/Report: Called/faxed to ESTEFANI Lee RN on 10/08/2024 at 16:19 ET for test Glucose Vitamin B12 8202 016-1517 pg/mL Folate (Folic Acid), Serum 12.4 >3.0 ng/mL A serum folate concentration of less than 3.1 ng/mL is considered to represent clinical deficiency. Vitamin D, 25-Hydroxy* Reviewed date:10/24/2024 02:44:27 PM Interpretation: Performing Lab:[facility] [address] [facility], Phone - [phone], Director - [facility] Notes/Report: Called/faxed to ESTEFANI Lee RN on 10/08/2024 at 16:19 ET for test Glucose Vitamin D, 25-Hydroxy 19.5 30.0-100.0 ng/mL Vitamin D deficiency has been defined by the [place] of [employer] and an Endocrine Society practice guideline as a level of serum 25-OH vitamin D less than 20 ng/mL (1,2). The Endocrine Society went on to further define vitamin D insufficiency as a level between 21 and 29 ng/mL (2). 1. IOM ([place] of [employer]). 2010. Dietary reference intakes for calcium and D. [place]: The National Academies Press. 2. Katrin MF, Safia NC, Galina WEEKS, et al. Evaluation, treatment, and prevention of vitamin D deficiency: an Endocrine Society clinical practice guideline. JCEM. 2010; 96(7):1911-30. Specimen Status Report TNP Test not performed. The requested test was omitted during the job order clerk process and the specimen is no longer available for testing. TEST: [id number] TSH Rfx on Abnormal to Free T4 Contacted by Estefani Ferrara at your facility on 10/24/24. CBC With Differential/Platel et* Reviewed date:10/24/2024 02:44:27 PM Interpretation: Performing Lab:[facility], [address] [facility], Phone - [phone], Director - Justin Notes/Report: Called/faxed to ESTEFANI Lee RN on 10/08/2024 at 16:19 ET for test Glucose WBC 5.9 3.4-10.8 x10E3/uL RBC 5.66 4.14-5.80 x10E6/uL Hemoglobin 16.7 13.0-17.7 g/dL Hematocrit 50.9 37.5-51.0 % MCV 90 79-97 fL MCH 29.5 26.6-33.0 pg MCHC 32.8 31.5-35.7 g/dL RDW 13.1 11.6-15.4 % Platelets 243 150-450 x10E3/uL Neutrophils 67 Not Estab. % Lymphs 23 Not Estab. % Monocytes 7 Not Estab. % Eos 2 Not Estab. % Basos 1 Not Estab. % Neutrophils (Absolute) 3.9 1.4-7.0 x10E3/uL Lymphs (Absolute) 1.3 0.7-3.1 x10E3/uL Monocytes(Absolute) 0.4 0.1-0.9 x10E3/uL Eos (Absolute) 0.1 0.0-0.4 x10E3/uL Baso (Absolute) 0.0 0.0-0.2 x10E3/uL Immature Granulocytes 0 Not Estab. % Immature Grans (Abs) 0.0 0.0-0.1 x10E3/uL PSA Total (Reflex To Free) Reviewed date:10/24/2024 02:44:27 PM Interpretation: Performing Lab:[facility], [address] [facility], [place], Phone - [phone], Director - Justin Notes/Report: Called/faxed to ESTEFANI Lee RN on 10/08/2024 at 16:19 ET for test Glucose Reflex Criteria The percent free PSA is performed on a reflex basis only when the total PSA is between 4.0 and 10.0 ng/mL. Reason For Referral Reason Left foot vascular c ompromise, numbness, cool to touch, decreased sensation, decreased cap refill Diagnosis 1 Poor circulation of extremity (R09.89) Referral Organization [facility] Referring Provider First Name Yamilet Referring Provider Last Name Short Referring Provider [facility] Referred Provider Specialty Vascular Aide paige General Notes Estefani Villasenor 10/08/2024 08:10:47 AM >Spoke with staff who verified patient insurance is accepted Clinical Notes [facility] Vascular & Vein Surgery, [address] [place] [address] [address]. [address], , Referral Priority Urgent Reason Uncontrolled DM2, Hx of AKA r/t DM2, last a1c 15.3/ glucose 513. Diagnosis 1 Uncontrolled diabete s mellitus (E11.65) Referral Organization [facility] Referring Provider First Name Yamilet Referring Provider Last Name Short Referring Provider [facility] nancyne Referred Provider [facility] Medical Group En docrinology [facility] Referred Provider Specialty Endocrinolog y General Notes Estefani Villasenor 10/22/2024 09:54:35 AM > Spoke with staff, Luis Fernando and was advised patients insurance is accepted., Estefani Villasenor 11/22/2024 03:09:23 PM >received correspondence from facility patient refusal/does not want to schedule appt Clinical Notes [facility] Medical Group- E ndocrinology, [address], [address], [place]. [address], , Referral Priority Routine Medications Medication SIG (Take, Route, Frequency, Duration) Notes Start Date End Date Status Gabapentin 300 MG 1 capsule Orally Onc e a day for 30 days Active Atorvastatin Calcium 40 MG 1 tablet Oral ly Once a day for 30 days Active UltiCare Micro Pen [place] 32G X 4 MM as directed three times daily Active Aspirin 81 81 MG 1 tablet Orally Once a day for 30 days Active Lisinopril 40 MG 1 tablet Orally Once a day for 30 days Active Xarelto 20 MG 1 tablet with food O rally Once a day for 30 days Active Lantus SoloStar 100 UNIT/ML inject 12 units under skin daily at bedtime Subcutaneous once daily at night for 30 days Active Multaq 400 MG 1 tablet with meals Orally Twice a day for 30 days Active Metoprolol Tartrate 50 MG 1 tablet with food Orally Twice a day for 30 days Active metFORMIN HCl ER 500 MG 1 tablet with evening meal Orally Twice daily for 30 days @ 9AM & 5PM Active Tamsulosin HCl 0.4 MG 1 capsule Orally O nce a day for 30 days 10/07/2024 Active HumaLOG KwikPen 100 UNIT/ML inject 8 units under skin at meals Subcutaneous three ties daily for 30 days Active Social History Tobacco Use: Social History Observation Description Date Details (start date - stop date) Light tobacco s moker NA - NA Tobacco Control (Standard) Question Answer Notes Tobacco use: Light tobacco smoker Additional Findings: Tobacco user Moderate cigar ette smoker (10-19 cigs/day) Problems Problem Type SNOMED Code ICD Code Onset Dates Problem Status W/U Status Risk Notes Problem Hypertension (42167176) Hypertension (I10) Active confirmed Problem Type II diabetes mellitus without complication (471095687) Diabetes (E11.9) Active confirmed Problem Diabetes mellitus uncontrolled (702013181) Uncontrolled diabetes mellitus (E11.65) Active confirmed Problem Urinary hesitancy (4382184) Urinary hesitancy (R39.11) Active confirmed Vital Signs Heart Rate 91 /min 10/07/2024 Temperature 98.6 degrees Fahrenheit 10/07/2024 Respiratory Rate 16 /min 10/07/2024 Blood pressure diastolic 70 mm Hg 10/07/2024 Oximetry 95 % 10/07/2024 Height 66.5 in 10/07/2024 Blood pressure systolic 136 mm Hg 10/07/2024 Weight 135.0 lbs 10/07/2024 BMI 21.46 kg/m2 10/07/2024 Encounters Encounter Location Date Provider Diagnosis [facility] [place] [address] 10/07/2024 Yamilet Patiño [facility] care wi th new doctor, encounter for Z71.89 ; Screening for prostate cancer Z12.5 ; Screening for lung cancer Z12.2 ; Screening for deficiency anemia Z13.0 ; Screening for metabolic disorder Z13.228 ; Diabetes E11.9 ; Screening for thyroid disorder Z13.29 ; Screening for hyperlipidemia Z13.220 ; Urinary hesitancy R39.11 ; Poor circulation of extremity R09.89 and Hypertension I10 [address] [place] [address] 10/08/2024 Yamilet Patiño Uncontrolled diabete s mellitus E11.[address] [place] [address] 10/14/2024 Yamilet Patiño [address] [place] [address] 10/14/2024 Yamilet Patiño Other disorder of circulatory system I99.8 [facility] [address] [place] [address] [place] [address] 10/28/2024 Yamilet Patiño Assessments Encounter Date Diagnosis (ICD Code) Assessment Notes Treatment Notes Treatment Clinical Notes Section Notes 10/07/2024 Screening for prostate cancer (ICD-10 - Z12.5) 10/07/2024 Establishing care with new doctor, encounter for (ICD-10 - Z71.89) 10/08/2024 Uncontrolled diabetes mellitus (ICD-10 - E11.65) 10/14/2024 Other disorder of circulatory system (ICD-10 - I99.8) 10/07/2024 Screening for lung cancer (ICD-10 - Z12.2) 10/07/2024 Screening for deficiency anemia (ICD-10 - Z13.0) 10/07/2024 Screening for metabolic disorder (ICD-10 - Z13.228) 10/07/2024 Diabetes (ICD-10 - E11.9) 10/07/2024 Screening for thyroid disorder (ICD-10 - Z13.29) 10/07/2024 Screening for hyperlipidemia (ICD-10 - Z13.220) 10/07/2024 Urinary hesitancy (ICD-10 - R39.11) 10/07/2024 Poor circulation of extremity (ICD-10 - R09.89) 10/07/2024 Hypertension (ICD-10 - I10) Plan Of Treatment Future Test Test Name Order Date Hemoglobin A1c* 10/07/2024 TSH Rfx on Abnormal to Free T4 5 CT Scan : Lungs (screening) 10/07/2024 ARNEL 10/15/2024 Insurance Providers Payer Name Payer Address Payer Phone Subscriber Number Group Number Insured Name Patient Relationship to Insured Coverage Start Date Coverage End Date [employer] Medicare [address] [address] [place] [address] [id number] Fariha moran Jose Self - patient is the insured 5 Medical (General) History Medical History History ICD Code Above Knee Amputation (right lower extre mity) Diabetes Surgical History Surgery Date(Month/Year) Amputation Hospitalization History Reason Date(Month/Year) Amputation
--- OUTSIDE RECORDS SUMMARY | 2024-11-25 03:52 | XMS_ITS | Clinical Summary ---
Author Organization [facility] Address [address] [place] [address] Care Team Providers Care Ict Analyst Name Role Phone None, Provider MD Primary Care Provider Unavaila ble Allergies No known active allergies Medications fluticasone propionate (FLONASE) 50 MCG/ACT nasal spray 2 sprays by Nasal route daily. Active nitroglycerin (NITROSTAT) 0.[address] 1 tablet (0.4 mg total) under the tongue every 5 (five) minutes as needed for Chest Pain. 02/22/20 Active [place]-3 Fatty Acids (OMEGA-3 PLUS) 1000 MG Cap Take 1,000 mg by mouth daily. Active KRILL OIL OR Take 350 mg by mouth daily. Active vitamin C (ASCORBIC ACID) 1000 MG tablet Take 1 tablet (1,000 mg total) by mouth daily. Active ferrous sulfate EC 324 (65 Fe) MG tablet Take 1 tablet (324 mg total) by mouth daily with breakfast. Active probiotic (FLORAJEN3) Cap capsule Take 1 capsule by mouth daily with breakfast. Active Sennosides (LAXATIVE OR) Take 1 Dose by mouth daily as needed (Constipati on). Active XARELTO 20 MG Tab tablet Take 1 tablet (20 mg total) by mouth daily with supper. 30 tablet 10/27/19 24 Active tiotropium (SPIRIVA RESPIMAT) 2.5 MCG/ACT inhaler (SPIRIVA RESPIMAT) Inhale 2 puffs into the lungs daily. 4 g 10/27/19 24 Active metFORMIN ER, MOD, (GLUMETZA) 500 MG TABLET SR 24 HR 24 hr tabletIndication s:Type 2 diabetes mellitus with hyperglycemia, with long-term current use of insulin (CMS/HCC HHS/HCC) Take 1 tablet (500 mg total) by mouth daily. 30 tablet 10/27/19 24 Active gabapentin (NEURONTIN) 300 MG capsule Take 3 capsules (900 mg total) by mouth 3 (three) times daily. 02/20/20 24 Active atorvastatin (LIPITOR) 40 MG tablet Take 1 tablet (40 mg total) by mouth daily. for 30 days Active insulin glargine (LANTUS SOLOSTAR) 100 UNIT/ML injection (PEN)Indications :Type 2 diabetes mellitus with hyperglycemia, with long-term current use of insulin ([facility]) Inject 20 Units into the skin nightly at bedtime. 6 mL 11/24/19 25 Active carvedilol (COREG) 12.5 MG tablet Take 1 tablet (12.5 mg total) by mouth 2 (two) times daily. 60 tablet 11/24/19 25 Active finasteride (PROSCAR) 5 MG tablet Take 1 tablet (5 mg total) by mouth daily. 30 tablet 11/24/19 25 Active tamsulosin (FLOMAX) 0.4 MG Cap Take 1 capsule (0.4 mg total) by mouth nightly. 30 capsule 11/24/19 25 Active aspirin EC (ECOTRIN) 81 MG tablet Take 1 tablet (81 mg total) by mouth daily. 025 Discontinued(Er ror) insulin glargine (LANTUS SOLOSTAR) 100 UNIT/ML injection (PEN)Indications :Type 2 diabetes mellitus with hyperglycemia, with long-term current use of insulin ([facility]) Inject 12 Units into the skin nightly at bedtime. 3 mL 10/27/19 24 025 Discontinued finasteride (PROSCAR) 5 MG tablet Take 1 tablet (5 mg total) by mouth daily. 30 tablet 10/27/19 24 025 Discontinued(Er ror) carvedilol (COREG) 12.5 MG tablet Take 1 tablet (12.5 mg total) by mouth 2 (two) times daily. 60 tablet 10/27/19 24 025 Discontinued(Er ror) lisinopril (PRINIVIL) 40 MG tabletIndication s:Primary hypertension Take 1 tablet (40 mg total) by mouth daily. 60 tablet 12/22/19 24 025 Discontinued(Er ror) metoprolol tartrate (LOPRESSOR) 50 MG tablet Take 1 tablet (50 mg total) by mouth 2 (two) times daily. 025 Discontinued(St op Taking at Discharge) Active Problems Problem Noted Date Diagnosed Date Atrial fibrillation with RVR ([facility]/HCC [facility]) 0 11/22/2024 Chest pain 10/26/2023 Cardiac arrhythmia 10/26/2023 Encounters Date Type Department Care Team Description 11/22/2024 6:49 PM CDT - 11/23/2024 5:03 PM CDT Hospital Encounter [facility] Telemetry Unit A [address] [place] [address] Clarice Ferraro MD Malcolm, MD Zak Avendano, Monty Lisa MD Chest Pain Discharge Disposition: Home or Self Care (Routine Discharge) 11/22/2024 Travel from Last 3 Months Immunizations Immunization Administration Dates Next Due Flublok (Quadrivalent) 06/22/2023 Influenza (Generic) 07/24/2019,04/07/2018 Influenza Adult (Generic) 05/11/2018,06/04/2017 PFIZER COVID-19 (ORIGINAL FO RMULATION, PURPLE CAP) mRNA, LNP-S, PF, 30 MCG/0.3 ML DOSE 10/28/2021,03/21/2021,02/19/2021 Td, Adsorbed, Preservative F ree, Adult Use, Lf Unspecified 05/07/2018 Social History Tobacco Use Types Packs/Day Years Used Date Smoking Tobacco: Some Days Cigarettes 2 40 Smokeless Tobacco: Never Tobacco Cessation:Ready to Q uit: Not Asked; Counseling Given: Not Answered Alcohol Use Standard Drinks/Week Comments Not Currently 0 (1 standard drink = 0.6 oz pur e alcohol) B1300 Health Literacy Answer Date Recor ded How often do you need to hav e someone help you when you read instructions, pamphlets, or other written material from your doctor or pharmacy? Never 11/22/2024 [facility] Utilities Answer Date Recorded In the past 12 months has th e electric, gas, oil, or water company threatened to shut off services in your home? No 11/22/2024 Humiliation, Afraid, Rape, and Kick questionnair e Answer Date Recorded Within the last year, have y ou been afraid of your partner or ex-partner? No 11/22/2024 Within the last year, have y ou been humiliated or emotionally abused in other ways by your partner or ex-partner? No Within the last year, have y ou been kicked, hit, slapped, or otherwise physically hurt by your partner or ex-partner? No 11/22/2024 Within the last year, have y ou been raped or forced to have any kind of sexual activity by your partner or ex-partner? No 11/22/2024 Social Connection and Isolation Panel [NHANES] A nswer Date Recorded In a typical week, how many times do you talk on the phone with family, friends, or neighbors? Twice a week 11/22/2024 How often do you get together with friends or re latives? Once a week 11/22/2024 How often do you attend druze or congregation serv ices? Never 11/22/2024 Do you belong to any clubs o r organizations such as druze groups, unions, fraternal or athletic groups, or school groups? No 11/22/2024 How often do you attend meet ings of the clubs or organizations you belong to? Never 11/22/2024 Are you , , di vorced, , never , or living with a partner? 11/22/2024 AUDIT-C Answer Date Recorded Q1: How often do you have a drink containing alcohol? Never 11/22/2024 Q2: How many drinks containi ng alcohol do you have on a typical day when you are drinking? Patient does not drink Q3: How often do you have si x or more drinks on one occasion? Never 11/22/2024 Overall Financial Resource Strain (CARDIA) Answe r Date Recorded How hard is it for you to pa y for the very basics like food, housing, medical care, and heating? Not hard at all 11/22/2024 [facility] - Occupational Stress Questionnaire Answer Date Recorded Do you feel stress - tense, restless, nervous, or anxious, or unable to sleep at night because your mind is troubled all the time - these days? Not at all 11/22/2024 Exercise Vital Sign Answer Date Recorde d On average, how many days pe r week do you engage in moderate to strenuous exercise (like a brisk walk)? 4 days 11/22/2024 On average, how many minutes do you engage in exercise at this level? 20 min 11/22/2024 Hunger Vital Sign Answer Date Recorded Within the past 12 months, y ou worried that your food would run out before you got the money to buy more. Never true 11/23/19 25 Within the past 12 months, t he food you bought just didn't last and you didn't have money to get more. Never true 11/22/2024 PRAPARE - Transportation Answer Date Re corded In the past 12 months, has l ack of transportation kept you from medical appointments or from getting medications? No 11/05 In the past 12 months, has l ack of transportation kept you from meetings, work, or from getting things needed for daily living? No 11/22/2024 Housing Stability Vital Sign Answer Jose Alejandro e Recorded In the last 12 months, was t here a time when you were not able to pay the mortgage or rent on time? No 10/26/2023 In the last 12 months, how many places have you lived? 1 10/26/2023 In the last 12 months, was t here a time when you did not have a steady place to sleep or slept in a long-term (including now)? No 10/26/2023 Housing Stability Vital Sign Answer Jose Alejandro e Recorded In the last 12 months, was t here a time when you were not able to pay the mortgage or rent on time? No 11/22/2024 In the past 12 months, how m any times have you moved where you were living? 0 11/22/2024 At any time in the past 12 m [facility], were you homeless or living in a long-term (including now)? 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 Not on file Not on file Last Filed Vital Signs Vital Sign Reading Time Taken Comments Blood Pressure 145/73 11/23/2024 4:09 PM CDT Pulse 72 11/23/2024 4:09 PM CDT Temperature 36.7 C (98 F) 11/23/2024 4:09 PM CDT Respiratory Rate 24 11/23/2024 4:09 PM CDT Oxygen Saturation 95% 11/23/2024 4:09 PM CDT Inhaled Oxygen Concentration - - Weight 53.4 kg (117 lb 11.6 oz) 11/23/2024 3:26 AM CDT Height 170.2 cm (5' 7 ) 11/22/2024 10:3 2 PM CDT Body Mass Index 18.44 11/22/2024 10:32 PM CDT Plan of Treatment Health Maintenance Due Date Last Done Comments Colorectal Cancer Screening Colonoscopy (10 Years) 1955 Kidney Health Evaluation 1955 Diabetes: Retinopathy Eye Exam 02/15/1974 Hepatitis C 02/15/1974 Pneumococcal Vaccine: 50+ Years (1 of 2 - PCV) 02/15/1975 Zoster Vaccines (1 of 2) 02/15/2006 RSV Immunization or 60+ Years (1 - Risk 60-74 years 1-dose series) 2016 DTaP, Tdap and Td Vaccines (1 - Tdap) 05/08/2018 05/07/2018 Annual Medicare Wellness Visit 02/15/2021 Lipid Panel 09/14/2023 09/14/2022 COVID-19 Vaccine ( season) 2024 10/28/2021, 03/21/2021, 02/19/2021 PHQ-2 (Physician [place]) 08/07/2024 Hemoglobin A1C 02/22/2025 11/23/2024, 0311/2024, 06/12/2024, Additional history exists Meningococcal B Vaccine Aged Out No l onger eligible based on patient's age to complete this topic Meningococcal Vaccine Aged Out No adwoa mary kate eligible based on patient's age to complete this topic RSV Immunizations Under 20 Months Aged Out No longer eligible based on patient's age to complete this topic Procedures Procedure Name Priority Date/Time Associated Diagnosis Comments POCT GLUCOSE - MENSAH DOCKED DEVICE Routine 11/23/2024 3:24 PM CDT POCT GLUCOSE - MENSAH DOCKED DEVICE Routine 11/23/2024 11:23 AM CDT BETA-HYDROXYBUTYRATE STAT 11/23/2024 9:15 AM CDT COMPREHENSIVE METABOLIC PANEL Routine 11/23/2024 9:15 AM CDT MAGNESIUM Routine 11/23/2024 6:55 AM CDT COMPREHENSIVE METABOLIC PANEL Routine 11/23/2024 6:55 AM CDT CBC W/DIFF AUTOMATED Routine 11/23/2024 6:55 AM CDT HEMOGLOBIN, GLYCOSYLATED Routine 11/23/2024 6:55 AM CDT POCT GLUCOSE - MENSAH DOCKED DEVICE Routine 11/23/2024 6:18 AM CDT ECG 12-LEAD Routine 11/23/2024 1:46 AM CDT TROPONIN, QUANT STAT 11/22/2024 11:43 PM CDT ECG 12-LEAD STAT 11/22/2024 11:26 PM CDT POCT GLUCOSE - MENSAH DOCKED DEVICE Routine 11/22/2024 10:29 PM CDT CRITICAL CARE Routine 11/22/2024 9:13 PM CDT TROPONIN, QUANT STAT 11/22/2024 8:47 PM CDT ECG 12-LEAD STAT 11/22/2024 8:32 PM CDT XR CHEST PORTABLE STAT 11/22/2024 7:3 7 PM CDT THYROXINE, FREE (FT4) STAT 11/22/2024 7:01 PM CDT PRO-BRAIN NATRIURETIC PEPTIDE STAT 11/22/2024 7:01 PM CDT TSH W/REFLEX STAT 11/22/2024 7:01 PM CDT MAGNESIUM STAT 11/22/2024 7:01 PM CDT TROPONIN, QUANT STAT 11/22/2024 7:01 PM CDT COMPREHENSIVE METABOLIC PANEL STAT 11/22/2024 7:01 PM CDT CBC W/DIFF AUTOMATED STAT 11/22/2024 7:01 PM CDT ECG 12-LEAD STAT 11/22/2024 6:51 PM CDT from Last 3 Months Results * (ABNORMAL) POCT glucose (11/23/2024 3:24 PM CDT) Only the most recent of4 resultswithin the time period is included. GLUCOSE POC 343(H) 70 - 99 mg/dL 11/23/2024 3:37 PM CDT [facility] 11/23/2024 3:24 PM CDT us Monty Crespo MD POCT ORDERABLES - CJ CE Final Result [facility] [address] [place] [address], [place] [phone] * BETA-HYDROXYBUTYRATE (11/23/2024 9:15 AM CDT) BETA-HYDROXYBUT YRATE 0.3 0.0 - 0.5 MMOL/L 11/23/2024 9:29 AM CDT [facility] 11/23/2024 9:15 AM CDT us Monty Crespo MD LABORATORY Final Result [facility] [address] [place] [address], [place] [phone] * (ABNORMAL) COMPREHENSIVE METABOLIC PANEL (11/23/2024 9:15 AM CDT) Only the most recent of3 resultswithin the time period is included. [facility] GLUCOSE 330(H) 70 - 99 MG/DL 11/23/2024 9:51 AM CDT [facility] BUN 19(H) 7 - 18 MG/DL 11/23/2024 9:51 AM CDT [facility] CREATININE S/P/B 0.71 0.7 - 1.3 MG/DL 11/23/2024 9:51 AM CDT [facility] SODIUM S/P/B 131(L) 136 - 145 MMOL/L 11/23/2024 9:51 AM CDT [facility] POTASSIUM S/P/B 3.8 3.5 - 5.1 MMOL/L 11/23/2024 9:51 AM CDT [facility] CHLORIDE S/P/B 97 97 - 115 MMOL/L 11/23/2024 9:51 AM CDT [facility] CO2 26.5 21 - 32 MMOL/L 11/23/2024 9:51 AM CDT [facility] CALCIUM S/P/B 8.3(L) 8.5 - 10.1 MG/DL 11/23/2024 9:51 AM CDT [facility] BILIRUBIN TOTAL S/P/B 0.4 0.2 - 1.2 MG/DL 11/23/2024 9:51 AM CDT [facility] Comment: THIS ASSAY IS NOT RECOMMENDED FOR PATIENTS UNDERGOING TREATMENT WITH ELTROMBOPAG DUE TO THE POTENTIAL FOR FALSELY ELEVATED RESULTS. TOTAL PROTEIN S/P/B 6.5 6.4 - 8.2 G/DL 11/23/2024 9:51 AM CDT [facility] ALBUMIN S/P/B 3.0(L) 3.4 - 5.0 G/DL 11/23/2024 9:51 AM CDT [facility] AST 11(L) 15 - 37 U/L 11/23/2024 9:51 AM CDT [facility] ALT 20 16 - 60 U/L 11/23/2024 9:51 AM CDT [facility] ALKALINE PHOSPHATASE S/P/B 76 50 - 136 U/L 11/23/2024 9:51 AM CDT [facility] ANION GAP 7.5 2 - 10 MMOL/L 11/23/2024 9:51 AM T [facility] BUN CREATININE RATIO 26.7(H) 6 - 26 11/23/2024 9:51 AM T [facility] A/G RATIO 0.9(L) 1.0 - 2.0 RATIO 11/23/2024 9:51 AM T [facility] GFR ESTIMATE >90 >90 ML/MIN/1.7 3 M2 11/23/2024 9:51 AM T [facility] Comment: NOTE: eGFR is not calculated for patients <18 years of age or gender unknown. This is an estimated GFR calculation using the new CKD EPI creatinine equation without race and so does not require a correction factor for race. This estimated GFR should not be used for calculating drug doses. 11/23/2024 9:15 AM CDT Bhavik Nolan MD LABORATORY Final Re sult [facility] [address] [place] [address], [place] [phone] * (ABNORMAL) HEMOGLOBIN, GLYCOSYLATED (11/23/2024 6:55 AM CDT) HGB A1C 13.8(H) <5.7 % 11/23/2024 11:22 AM CDT [facility] Comment: ADA GUIDELINES 2010 5.7 TO 6.4% INCREASED RISK OF DIABETES > OR = 6.5% CONSISTENT WITH DIABETES ESTIMATED AVG GLUCOSE 349 mg/dL 11/23/2024 11:22 AM CDT [facility] 11/23/2024 6:55 AM CDT James Murry NP LABORATORY Final Result Performing Organization Address City/State/[facility] Co de Phone Number [facility] [address] [place] [address], * CBC W/DIFF AUTOMATED (11/23/2024 6:55 AM CDT) Only the most recent of2 resultswithin the time period is included. WBC 7.10 4.5 - 11.0 x10'3/uL 11/23/2024 11:53 AM CDT [facility] RBC 5.00 4.70 - 6.10 x10'6/uL 11/23/2024 11:53 AM CDT [facility] HGB 14.5 14.0 - 18.0 G/DL 11/23/2024 11:53 AM CDT [facility] HCT 43.6 43.0 - 54.0 % 11/23/2024 11:53 AM CDT [facility] MCV 87.2 80.0 - 94.0 FL 11/23/2024 11:53 AM CDT [facility] MCH 29.0 27.0 - 31.0 PG 11/23/2024 11:53 AM CDT [facility] MCHC 33.3 32.0 - 36.0 G/DL 11/23/2024 11:53 AM CDT [facility] RDW 13.7 11.5 - 14.5 % 11/23/2024 11:53 AM CDT [facility] PLT 230 130 - 400 x10'3/uL 11/23/2024 11:53 AM CDT [facility] MPV 9.6 9.3 - 12.2 FL 11/23/2024 11:53 AM CDT [facility] DIFFERENTIAL TYPE AUTOMATED DIFFERENTIAL 11/23/2024 11:53 AM CDT [facility] NEUTROPHILS % 56.3 % 11/23/2024 11:53 AM CDT [facility] LYMPHOCYTES % 32.0 % 11/23/2024 11:53 AM CDT [facility] MONOCYTES % 7.7 % 11/23/2024 11:53 AM CDT [facility] EOSINOPHILS 3.2 % 11/23/2024 11:53 AM CDT [facility] BASOPHILS 0.7 % 11/23/2024 11:53 AM CDT [facility] IMMATURE GRANS % 0.1 % 11/24/19 11:53 AM CDT [facility] ABS. NEUTROPHILS 3.99 1.80 - 7.70 x10'3/uL 11/23/2024 11:53 AM CDT [facility] ABS. LYMPHOCYTES 2.27 1.00 - 4.80 x10'3/uL 11/23/2024 11:53 AM CDT [facility] ABS. MONOCYTES 0.55 0.30 - 0.82 x10'3/uL 11/23/2024 11:53 AM CDT [facility] ABS. EOSINOPHILS 0.23 0.04 - 0.54 x10'3/uL 11/23/2024 11:53 AM CDT [facility] ABS. BASOPHILS 0.05 0.01 - 0.08 x10'3/uL 11/23/2024 11:53 AM CDT [facility] ABS. IMMATURE GRANULOCYTES 0.01 0.00 - 0.49 x10'3/uL 11/23/2024 11:53 AM CDT [facility] 11/23/2024 6:55 AM CDT James Murry NP LABORATORY Final Result [facility] [address] [place] [address], [place] [phone] * MAGNESIUM (11/23/2024 6:55 AM CDT) Only the most recent of2 resultswithin the time period is included. MAGNESIUM 2.1 1.8 - 2.4 MG/DL 11/23/2024 10:55 AM CDT [facility] 11/23/2024 6:55 AM CDT Bhavik Nolan MD LABORATORY Final Re sult [facility] [address] [place] [address], [place] [phone] * ECG 12 lead (11/23/2024 1:46 AM CDT) Only the most recent of4 resultswithin the time period is included. 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1955 Requested By: BHAVIK NOLAN Order Number: [id number] Reading : Gurmeet Biggs Measurements Intervals [place] Rate: 78 P: 65 MT: 126 QRS: 2 QRSD: 100 T: -8 QT: 371 QTc: 424 Interpretive Statements SINUS RHYTHM POSSIBLE LEFT ATRIAL ENLARGEMENT [-0.1mV P WAVE IN V1/V2] SEPTAL MYOCARDIAL INFARCTION [40+ ms Q WAVE IN V1/V2], OF INDETERMINATE AGE Compared to ECG 11/22/2024 23:26:25 Myocardial infarct finding now present Atrial fibrillation no longer present Procedure Note Gurmeet Biggs MD - 11/23/2024 [place] Test Date: 2024-11-23 [facility] Department: 40 Room: A424 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1955 Requested By: BHAVIK NOLAN Order Number: [id number] Reading : Gurmeet Biggs Measurements Intervals [place] Rate: 78 P: 65 MT: 126 QRS: 2 QRSD: 100 T: -8 QT: 371 QTc: 424 Interpretive Statements SINUS RHYTHM POSSIBLE LEFT ATRIAL ENLARGEMENT [-0.1mV P WAVE IN V1/V2] SEPTAL MYOCARDIAL INFARCTION [40+ ms Q WAVE IN V1/V2], OF INDETERMINATEAGE Compared to ECG 11/22/2024 23:26:25 Myocardial infarct finding now present Atrial fibrillation no longer present us Bhavik Nolan MD ECG ORDERABLES Final Re sult [facility] * TROPONIN, QUANT (11/22/2024 11:43 PM CDT) Only the most recent of3 resultswithin the time period is included. TROPONIN I HIGH SENSITIVITY 19 <79 ng/L 11/23/2024 12:18 AM CDT [facility] Comment: HIGH DOSES OF BIOTIN, TROPONIN-SPECIFIC AUTOANTIBODIES, AND ANTIBODY THERAPY CONTAINING HAMA MAY INTERFERE WITH THIS TEST RESULT. CORRELATION TO CLINICAL HISTORY AND PRESENTATION RECOMMENDED. 11/22/2024 11:4 3 PM CDT us Clarice Ferraro MD LABORATORY Final Resu lt [facility] [address] [place] [address], [place] [phone] * Critical Care (11/22/2024 9:13 PM CDT) Narrative Clarice Ferraro MD - 11/22/2024 9:13 PM CDT Clarice Ferraro MD 11/22/2024 11:19 PM Critical Care Performed by: Clarice Ferraro MD Authorized by: Clarice Ferraro MD Critical care provider statement: Critical care time (minutes): 60 Critical care time was exclusive of: Separately billable procedures and treating other patients Critical care was necessary to treat or prevent imminent or life-threatening deterioration of the following conditions: Cardiac dysrhythmia. Critical care was time spent personally by me on the following activities: Ordering and performing treatments and interventions, ordering and review of laboratory studies, ordering and review of radiographic studies, pulse oximetry, re-evaluation of patient's condition, development of treatment plan with patient or surrogate, discussions with consultants, evaluation of patient's response to treatment, examination of patient and obtaining history from patient or surrogate Care discussed with: admitting provider Comments: Patient given IV metoprolol, IV Cardizem bolus x 2, and started on Cardizem drip for management of cardiac dysrhythmia us Clarice Ferraro MD PROCEDURE/MINOR SURGICAL O RDERABLES Final Result * XR CHEST PORTABLE (11/22/2024 7:37 PM CDT) Anatomical Region Laterality Modality Chest Radiographic Jayda ging 11/22/2024 7:58 PM CDT Impressions 11/22/2024 8:00 PM CDT IMPRESSION: 1. No radiographic evidence of acute cardiac pulmonary process. 2. Stable chest. Referred By: Interpreted By: Sweta Lopez DO, 11/22/2024 7:58 PM Narrative 11/22/2024 8:00 PM CDT [place] [address] CLINICAL INDICATION: 69-year-old male. Reason for examination: Chest pain. 11/22/2024 7:15 PM, Maty Sharma L: chest pain TECHNIQUE: Portable upright AP view of the chest. 19:29 COMPARISON: Portable upright AP view of the chest 10/26/2023. FINDINGS: Normal heart size and pulmonary vascular distribution. The lungs are clear of infiltrates. No pleural effusion or consolidation. Procedure Note Sweta Lopez MD - 11/22/2024 [place] [address] CLINICAL INDICATION: 69-year-old male. Reason for examination: Chest pain. 11/22/2024 7:15 PM, Maty Sharma L: chest pain TECHNIQUE: Portable upright AP view of the chest. 19:29 COMPARISON: Portable upright AP view of the chest 10/26/2023. FINDINGS: Normal heart size and pulmonary vascular distribution. The lungs are clear of infiltrates. No pleural effusion orconsolidation. IMPRESSION: 1. No radiographic evidence of acute cardiac pulmonary process. 2. Stable chest. Referred By: Interpreted By: Sweta Lopez DO, 11/22/2024 7:58 PM us Clarice Ferraro MD GENERAL IMAGING Final Resu lt * (ABNORMAL) TSH W/REFLEX (11/22/2024 7:01 PM CDT) TSH 5.220(H) 0.358 - 3.74 uIU/ML 11/22/2024 8:03 PM CDT [facility] Comment: HIGH DOSES OF BIOTIN MAY INTERFERE WITH THIS TEST RESULT. CORRELATION TO CLINICAL HISTORY AND PRESENTATION RECOMMENDED. 11/22/2024 7:01 PM CDT us Clarice Ferraro MD LABORATORY Final Resu lt Performing Organization Address City/[facility]/ZIP Co de Phone Number [facility] [address] [place] [id number], * PRO-BRAIN NATRIURETIC PEPTIDE (11/22/2024 7:01 PM CDT) PRO-B TYPE NATRIURETIC PEPTIDE 53 <125 PG/ML 11/22/2024 8:03 PM CDT [facility] Comment: CUT POINTS ESTABLISHED BY [employer] ON NT PROBNP (ICON) STUDY (2006). AGE INDEPENDENT: <300 PG/ML HAS A 99% NEGATIVE PREDICTIVE VALUE FOR EXCLUDING ACUTE CHF <50 YEARS: >450 PG/ML IS CONSISTENT WITH ACUTE CHF 50-75 YEARS: >900 PG/ML IS CONSISTENT WITH ACUTE CHF >75 YEARS: >1800 PG/ML IS CONSISTENT WITH ACUTE CHF IN PATIENTS WITH RENAL INSUFFICIENCY (GFR <60), >1200 PG/ML YIELDS A DIAGNOSTIC SENSITIVITY AND SPECIFICITY OF 89% AND 72% FOR ACUTE CHF. 11/22/2024 7:01 PM CDT us Clarice Ferraro MD LABORATORY Final Resu lt [facility] [facility] [address] [place] [address], [place] [address], [place] [phone] * THYROXINE, FREE (FT4) (11/22/2024 7:01 PM CDT) FREE T4 1.17 0.76 - 1.46 NG/DL 11/22/2024 8:25 PM CDT [facility] 11/22/2024 7:01 PM CDT Clarice Ferraro MD LABORATORY Final Resu lt [facility] [address] [place] [address], [place] [phone] from Last 3 Months Insurance Advance Directives * Full Code (Latest Code Status on File) Date Activated Date Inactivated Comments 11/22/2024 10:11 PM 11/23/2024 7:08 PM * DNR Date Activated Date Inactivated Comments 10/26/2023 9:46 PM 10/27/2023 5:29 PM * DNR Date Activated Date Inactivated Comments 10/26/2023 4:27 PM 10/26/2023 9:46 PM Care Teams Ict Analyst Relationship Specialty Start Date End Date None, Provider, MD PCP - General UNKNOWN PHYSICIAN SPECIALTY 11/22/24
--- OUTSIDE RECORDS SUMMARY | 2024-11-25 03:52 | XMS_ITS ---
Author Organization [facility] Address [address] [place] [address] Care Team Providers Care Staff Certified Nurse Midwife Name Role Phone Jonathan Salmeron Primary Care Provider Yamilet Patiño [phone] REASON FOR VISIT Lab results Encounters Encounter Location Date Provider Diagnosis [address] [place] [address] 10/14/2024 Yamilet Patiño Other disorder of circulatory system I99.8 Assessments Encounter Date Diagnosis (ICD Code) Assessment Notes Treatment Notes Treatment Clinical Notes Section Notes 10/14/2024 Other disorder of circulatory system (ICD-10 - I99.8) Plan Of Treatment Future Test Test Name Order Date ARNEL 10/15/2024 Progress Notes * Jose HARRISDOB: [birth year] (69 yo M)Acc No.[id number]:10/14/2024 Patient: Jose VU :1955 A ge:69 Y S ex:Male Address:[address] [place], [place] [address], [place], [address] Subjective: * Chief Complaints: * L ab results * Medical History: * Surgical History: * Hospitalization/Major Diagno stic Procedure: * Medications: Objective: * Vitals: * Physical Examination: Assessment: * Assessment: 1. O ther disorder of circulatory system - I99.8 (Primary) Plan: * Treatment: * Procedure Codes: * true * Date: Generated for Tommy nuñez/Wale/Michael on: 0 11/25/2024 03:52 AM CDT
--- OUTSIDE RECORDS SUMMARY | 2024-11-25 03:52 | XMS_ITS | CONTINUITY OF CARE DOCUMENT ---
Author Name sherri josuerenita Address Unknown Organization [facility] Address [address] [place] [address] Phone [phone] Care Team Providers Care Assistant Sales Center Manager Name Role Phone Broderick SIMPSON, Yessy Unavailable [phone] NAHID RAMSAY MD Unavailable [phone] NAHID RAMSAY MD Unavailable [phone] PROBLEMS Condition Status Date Provider Notes Iron deficiency anemia active Amy N Josesito son PVD left l subclavian occlus ion , AAA 3.2 cm , ectasia active Yessy Villafana MD Chest pain STEMI 100% om1, 8 0%om2, 80% PDA s/p stents 12/21, nl stress nuc 07/23 active Yessy tirado MD Diabetes mellitus active Yessy Villafana MD Abdominal pain active Yessy Villafana MD Abnormal electrocardiogram active Yessy bonilla MD BACK PAIN lumbar disc disease active Yessy Villafana MD Hx of tobacco abuse active Yessy Villafana MD ENCOUNTERS Date Type Provider Location Encounter Diag nosis - In-person encounter Office Visit Yessy Villafana MD [facility] - In-person encounter Office Visit Yessy Villafana MD [facility] Hx of tobacco abuse - In-person encounter Office Visit Yessy Villafana MD [facility] Chest pain STEMI 100% om1, 80%om2, 80% PDA s/p stents 12/21, nl stress nuc 07/23 - In-person encounter Office Visit Yessy Villafana MD [facility] - In-person encounter Office Visit Yessy Villafana MD [facility] - In-person encounter Office Visit Yessy Villafana MD [facility] Chest pain STEMI 100% om1, 80%om2, 80% PDA s/p stents 12/21, nl stress nuc 07/23Diabetes mellitusAbdominal painAbnormal electrocardiogramBACK PAIN lumbar disc disease VITAL SIGNS Date Observation Value Provider Body Mass Index (Ratio) 30.69 kg/m2 Kishan Villafana MD blood pressure, diastolic 74 mm[Hg] Da marni [place] blood pressure, systolic 148 mm[Hg] Dac ia Amanda oxygen saturation, oximetry 96 % Emily Amanda respiratory rate E&M 18 /min Emily V oss pulse rate 79 /min Emily Amanda weight E&M 196 [lb_av] Emily Amanda height E&M 67 [in_i] Emily Amanda Body Mass Index (Ratio) 28.72 kg/m2 Kishan Villafana MD blood pressure, diastolic 77 mm[Hg] Solis Villegas blood pressure, systolic 154 mm[Hg] Margaret Villegas oxygen saturation, oximetry 98 % Sandra Villegas respiratory rate E&M 18 /min Corie Villegas pulse rate 55 /min Sandra Montalvoe orquidea weight E&M 183.4 [lb_av] Sandra forde height E&M 67 [in_i] Sandra Pa orquidea Body Mass Index (Ratio) 29.44 kg/m2 Kishan Villafana MD oxygen saturation, oximetry 96 % Jo-Ann Zarate respiratory rate E&M 20 /min Jo-Ann chang pulse rate 78 /min Jo-Ann Gruenenfe lder blood pressure, cuff size regular Ke rri Gruenenfelder blood pressure, diastolic 62 mm[Hg] Ke rri Gruenenfelder blood pressure, systolic 108 mm[Hg] Ker ri Gruenenfyoeler weight E&M 188 [lb_av] Jo-Ann Gruenenfe lder height E&M 67 [in_i] Jo-Ann Gruenenfe er Body Mass Index (Ratio) 29.97 kg/m2 Kishan Villafana MD blood pressure, diastolic 71 mm[Hg] Solis Landry Bakari blood pressure, systolic 146 mm[Hg] Margaret Santamaria Villegas oxygen saturation, oximetry 96 % SandraAngela Villegas respiratory rate E&M 18 /min Corie angeline MontalvoVillegas pulse rate 72 /min Sandra Winn rickieolga weight E&M 191.4 [lb_av] Sandra doyleolga height E&M 67 [in_i] Sandra Winn orquidea Body Mass Index (Ratio) 28.97 kg/m2 Kishan Villafana MD blood pressure, cuff size regular Ke rri Grueneraiza blood pressure, diastolic 60 mm[Hg] Ke rri Gruenenfanthony blood pressure, systolic 142 mm[Hg] Ker ri Tessa oxygen saturation, oximetry 96 % Jo-Ann Abdineraiza respiratory rate E&M 16 /min Jo-Ann G ryanenenfanthony pulse rate 79 /min Jo-Ann Gruenenfe er weight E&M 185 [lb_av] Jo-Ann Gruenenfe er height E&M 67 [in_i] Jo-Ann Gruenenfe er Body Mass Index (Ratio) 26.47 kg/m2 Kishan Villafana MD blood pressure, cuff size regular Kacy Murry blood pressure, diastolic 80 mm[Hg] Kacy Murry blood pressure, systolic 118 mm[Hg] Sruthi Murry oxygen saturation, oximetry 97 % Melanie Murry respiratory rate E&M 16 /min Melanie Murry pulse rate 82 /min Melanie Murry weight E&M 169 [lb_av] Melanie Murry height E&M 67 [in_i] Melanie Murry ALLERGIES No Known Drug Allergies RESULTS Date Observation Value Provider Reference Range Interpretation Location prothrombin time (patient) 10.7 s [facility] 9.1-12.0 international normalized ratio (INR) 1.1 [facility] 0.8-1.2 lipoprotein, beta, serum, point, quantitative, calculated 54 mg/dL [facility] 0-99 very low density lipoproteins 27 mg/dL [facility] 5-40 HDL cholesterol, serum 24 mg/dL [facility] >39 Low triglyceride, serum, random 134 mg/dL [facility] 0-149 cholesterol, serum 105 mg/dL [facility] 719-002 3392/10/ 22 platelet count 263 X10E3/UL [facility] 802-947 4429/10/ 22 red blood cell distribution width 18.4 % [facility] 12.3-15.4 High mean corpuscular hemoglobin concentration, RBC 30.6 G/DL [facility] 31.5-35.7 Low mean corpuscular hemoglobin, RBC 21.5 pg [facility] 26.6-33.0 Low mean corpuscular volume, RBC 70 fL [facility] 79-97 Low hematocrit, blood 31.9 % [facility] 37.5-51.0 Low hemoglobin, blood 9.8 g/dL [facility] 13.0-17.7 Low erythrocyte (RBC) count 4.55 X10E6/UL [facility] 4.14-5.80 leukocyte count, blood 6.4 X10E3/UL [facility] 3.4-10.8 alanine aminotransferase (SGPT), serum 15 1/L [facility] 0-44 aspartate aminotransferase (SGOT), serum 14 1/L [facility] 0-40 alkaline phosphatase, serum 74 1/L [facility] 39-117 bilirubin, serum, total 0.4 mg/dL [facility] 0.0-1.2 albumin/globulin ratio, serum 1.5 [facility] 1.2-2.2 globulin, serum 2.9 [facility] 1.5-4.5 albumin, serum 4.3 g/dL [facility] 3.6-4.8 protein, total, serum 7.2 g/dL [facility] 6.0-8.5 calcium, serum 9.8 mg/dL [facility] 8.6-10.2 carbon dioxide, venous blood 27 mmol/L [facility] 20-29 chloride, serum 96 mmol/L [facility] 96-106 potassium, serum 4.0 mmol/L [facility] 3.5-5.2 sodium, serum 134 mmol/L [facility] 089-835 2156/10/ 22 urea nitrogen/creatinine ratio, serum 12 [facility] 10-24 eGFR if 110 mL/min/{1 .73_m2} [facility] >59 eGFR if not 95 mL/min/{1 .73_m2} [facility] >59 creatinine, serum 0.82 mg/dL [facility] 0.76-1.27 urea nitrogen, blood 10 mg/dL [facility] 8-27 blood glucose, random 228 mg/dL [facility] 65-99 High ferritin, serum 11 ng/mL [facility] 30-400 Low pro brain natriuretic peptide 48 pg/mL [facility] 0-210 iron saturation percent, serum 4 % [facility] 15-55 Critical low iron, serum 18 ug/dL [facility] 38-169 Low iron binding capacity, unsaturated 428 ug/dL [facility] 111-343 High iron binding capacity, total 446 ug/dL [facility] 445-993 1887/01/ 10 basophil count, absolute 0.0 x10E3/uL [facility] 0.0-0.2 Eosinophil Absolute Count 0.2 X10E3/UL [facility] 0.0-0.4 monocyte count, blood, automated 0.4 X10E3/UL [facility] 0.1-0.9 lymphocyte count, blood, automated 1.2 X10E3/UL [facility] 0.7-3.1 Absolute Neutrophils 4.4 X10E3/UL [facility] 1.4-7.0 basophils as percent of blood leukocytes 1 % [facility] Not Estab. eosinophils as percent of blood leukocytes 2 % [facility] Not Estab. monocytes as percent of blood leukocytes 7 % [facility] Not Estab. lymphocytes as percent of blood leukocytes 19 % [facility] Not Estab. neutrophils as percent of blood leukocytes 71 % [facility] Not Estab. platelet count 218 X10E3/UL [facility] 733-921 5596/01/ 10 red blood cell distribution width 16.7 % [facility] 12.3-15.4 High mean corpuscular hemoglobin concentration, RBC 26.9 G/DL [facility] 31.5-35.7 Low mean corpuscular hemoglobin, RBC 20.3 pg [facility] 26.6-33.0 Low mean corpuscular volume, RBC 76 fL [facility] 79-97 Low hematocrit, blood 32.0 % [facility] 37.5-51.0 Low hemoglobin, blood 8.6 g/dL [facility] 13.0-17.7 Low erythrocyte (RBC) count 4.23 X10E6/UL [facility] 4.14-5.80 leukocyte count, blood 6.2 X10E3/UL [facility] 3.4-10.8 alanine aminotransferase (SGPT), serum 14 1/L [facility] 0-44 aspartate aminotransferase (SGOT), serum 14 1/L [facility] 0-40 alkaline phosphatase, serum 75 1/L [facility] 39-117 bilirubin, serum, total 0.3 mg/dL [facility] 0.0-1.2 albumin/globulin ratio, serum 1.6 [facility] 1.2-2.2 globulin, serum 2.6 [facility] 1.5-4.5 albumin, serum 4.2 g/dL [facility] 3.6-4.8 protein, total, serum 6.8 g/dL [facility] 6.0-8.5 calcium, serum 9.0 mg/dL [facility] 8.6-10.2 carbon dioxide, venous blood 22 mmol/L [facility] 18-29 chloride, serum 92 mmol/L [facility] 96-106 Low potassium, serum 4.3 mmol/L [facility] 3.5-5.2 sodium, serum 132 mmol/L [facility] 134-144 Low urea nitrogen/creatinine ratio, serum 18 [facility] 10-24 eGFR if not 97 mL/min/{1 .73_m2} [facility] >59 creatinine, serum 0.79 mg/dL [facility] 0.76-1.27 urea nitrogen, blood 14 mg/dL [facility] 8-27 blood glucose, random 541 mg/dL [facility] 65-99 international normalized ratio (INR) 1.1 Emily Patel Normal prothrombin time (patient) 13.4 s Emily Patel HISTORY OF MEDICATION USE Medication Status Instructions Dates Provider Indications Com ments NITROSTAT 0.4 MG SUBLINGUAL TABLET SUBLINGUAL active apply one tab under tongue every 5 minutes for 3 total doses as needed for chest pain. If no relief after 3rd dose, go to ER Yessy Villafana MD AMLODIPINE BESYLATE 5 MG ORAL TABLET active ONE TAB. DAILY Sandra Villegas LEVOTHYROXINE SODIUM 50 MCG ORAL TABLET active ONE TAB. DAILY Sandra Villegas GLIPIZIDE 5 MG ORAL TABLET active 1 tab by mouth twice daily Tricia Shah RN PLAVIX 75 MG ORAL TABLET active ONE TAB. DAILY Yessy Villafana MD ANORO ELLIPTA 62.5-25 MCG/INH INHALATION AEROSOL POWDER BREATH ACTIVATED active once daily Sandra Villegas KRILL OIL CAPSULE active once a day Jo-Ann Zarate LIPITOR 40 MG ORAL TABLET active ONE TAB. DAILY Jo-Ann Zarate METOPROLOL TARTRATE 25 MG ORAL TABLET active take one pill twice a day Jo-Ann Zarate LEVO-T 50 MCG ORAL TABLET active once a day Jo-Ann Zarate FINASTERIDE 5 MG ORAL TABLET active take one pill a day Jo-Ann Zarate AMLODIPINE BESYLATE 5 MG ORAL TABLET completed take one pill a day - Yessy Villafana MD ASPIRIN 325 MG ORAL TABLET active ONE TAB. DAILY Jo-Ann Zarate METFORMIN HCL 500 MG ORAL TABLET active take one pill twice a day Jo-Ann Zarate CYCLOBENZAPRINE HCL 10 MG ORAL TABLET completed - Sandra Villegas METOPROLOL TARTRATE TABS completed - Yessy Villafana MD SOCIAL HISTORY Date Observation Value Provider social history reviewed E&M revi ewed - no changes required Yessy Villafana MD smoking/tobacco cess ation, patient education and counseling yes Emily [place] smoking history, tot al pack/day 7 cigarettes a day Emily Amanda cigarette use yes Emily Amanda smoking status Current every day smoker D acia Amanda social history reviewed E&M revi ewed - no changes required Yessy Villafana MD smoking/tobacco cess ation, patient education and counseling yes Sandra Villegas smoking history, tot al pack/day 7 cigarettes a day Sandra Villegas cigarette use yes Sandra forde smoking status Current every day smoker M Jarrell Villegas smoking/tobacco cess ation, patient education and counseling yes Yessy Villafana MD social history E&M S moking History: P zana currently smokes every day. Yessy Villafana MD social history reviewed E&M revi ewed - no changes required Yessy Villafana MD smoking history, tot al pack/day 7 cigarettes a day Jo-Ann Zarate cigarette use yes Jo-Ann cruz smoking status Current every day smoker K mario Zarate number of grandchildren Yessy Villafana MD T lupillo Villafana MD social history reviewed E&M revi ewed - no changes required Yessy Villafana MD smoking history, tot al pack/day 7 cigarettes a day Sandra Villegas cigarette use yes Sandra forde smoking status Current every day smoker Candido Vieyra Villegas social history reviewed E&M revi ewed - no changes required Yessy Villafana MD smoking history, tot al pack/day 7 cigarettes a day Jo-Ann Zarate cigarette use yes Jo-Ann cruz smoking status Current every day smoker K mario Zarate social history reviewed E&M revi ewed - no changes required Yessy Villafana MD smoking history, tot al pack/day 7 cigarettes a day Melanie Murry cigarette use yes Melanie Murry smoking status Current every day smoker L jovanny Murry FAMILY HISTORY Family Member Condition Mother Family History Unkno wn INSURANCE PROVIDERS Payer name Policy type / Coverage type [place] red republican ID [employer] MEDICAID Medicaid [id number] ADVANCE DIRECTIVES Name Date DISCUSSED - NO DECISION MADE TREATMENT PLAN Date Name Performer Cardiology follow up Yessy tirado MD Cardiology follow up:Per pt, wel l controlled. Yessy Villafana MD Cardiology follow up :Hx STEMI with 4 stents, mild plaque on carotid doppler, significant plaque in left subclavian. C/o stabbing cp associated with sob and exertion. Has taken 7 NTG in the past 9 days to help with pain management of these pains. Has reduced smoking to two cigarettes weekly. Significant associated history and risk factors include hypertension, abnormal lipids and lung disease. Will schedule cardiac cath. Yessy Villafana MD Cardiology Yessy Villafana MD Cardiology Yessy Villafana MD Cardiology Yessy Villafana MD Cardiology Yessy Villafana MD Cardiology Follow up Yessy tirado MD Cardiology Follow up:Okay to pro ceed with surgery. Yessy Villafana MD Cardiology Follow up Yessy tirado MD Cardiology Follow up Yessy tirado MD Cardiology Yessy Villafana MD Cardiology Yessy Villafana MD Cardiology Yessy Villafana MD Cardiology:No recurr ence of chest pain, but the patient is fatigued. Will schedule echocardiogram and stress test. Yessy Villafana MD Cardiology Hospital Follow up To nicole Villafana MD [facility]iology Hospital Follow up To nicole Villafana MD [facility] Follow up To nicole Villafana MD [facility] Follow up To nicole Villafana MD [facility] Follow up To nicole Villafana MD [facility] Follow up To nicole Villafana MD [facility] Follow up To nicole Villafana MD [facility] Follow up To nicole Villafana MD Date Name PROTHROMBIN TIME WIT H INR CBC (H/H, RBC, INDIC ES, WBC, PLT) LIPID PANEL COMPREHENSIVE METABO LIC PANEL, W/EGFR Complete Echo PROBNP, N TERMINAL IRON AND TOTAL IRON BINDING CAPACITY FERRITIN CBC (INCLUDES DIFF/P LT) COMPREHENSIVE METABO LIC PANEL, W/EGFR STR - Adenosine Complete Echo HISTORY OF PROCEDURES Procedure Date Procedure Name Provider Procedure Notes S tatus EKG Yessy Villafana MD completed EKG Yessy Villafana MD completed SNOMED-CT: 710133047 105308 Current Medications Documented Yessy Villafana MD completed Stress EKG LINDA BRITO MD completed Regadenoson, 4 units Yessy Villafana MD completed Cardiolite, 2 units Yessy Villafana MD completed SPECT Images Yessy Villafana MD complet ed SNOMED-CT: 284583265 799213 Current Medications Documented Yessy Villafana MD completed SNOMED-CT: 310453046 Smoking Cessation Counseling Yessy Villafana MD completed SNOMED-CT: 04338128 Physical Exam, Performed: Pulse Exam of Foot Yessy Villafana MD completed SNOMED-CT: 872721472 776167 Current Medications Documented Yessy Villafana MD completed Protany Patel completed SNOMED-CT: 51344982 Physical Exam, Performed: Pulse Exam of Foot Yessy Villafana MD completed EKG Yessy Villafana MD completed SNOMED-CT: 207488857 751899 Current Medications Documented Yessy Villafana MD completed
--- OUTSIDE RECORDS SUMMARY | 2024-11-25 03:52 | XMS_ITS | Referral Summary ---
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 Name Role Phone No, Physician Unavailable Tavares Jarrell MD Unavailable [phone] Eusebio Jarrell MD Unavailable Yamilet Patiño NP Primary Care Provider + [phone] Encounters Date Type Department Care Team Description 10/30/2024 Telephone [facility] Medical [facility] Diabetes and Endocrinology [address] [place] [phone] Florentino Good, Amparo Good MD New referral to Endocrinology 10/18/2024 5:21 PM CDT - 10/19/2024 8:34 PM CDT Hospital Encounter [address] [phone] Deo Alvarado MD Fasick, Victoria Rose, HeardZaid, Chest pain, unspecified type (Primary Dx); Chronic anticoagulation; Type 1 diabetes mellitus with hyperglycemia (HCC); Chronic hyponatremia Discharge Disposition: Left Against Medical Advice 10/15/2024 Orders Only [facility] Medical [facility] Vascular and Vein Surgery [address] [place] [phone] Eusebio Jarrell MD Infrarenal abdominal aortic aneurysm (AAA) without rupture (Primary Dx); Atherosclerosis of [place] artery of both lower extremities with intermittent claudication 10/14/2024 2:15 PM CDT Office Visit [facility] Vascular and Vein Surgery [address] [place] [phone] Pebbles Davis PA PVD (peripheral vascular disease) (Primary Dx); Infrarenal abdominal aortic aneurysm (AAA) without rupture; Cigarette nicotine dependence with nicotine-induced disorder; Mixed hyperlipidemia 10/14/2024 1:01 PM CDT - 10/14/2024 11:59 PM CDT Hospital Encounter [facility] Building 2 Vascular [address] [place] [address] Infrarenal abdominal aortic aneurysm (AAA) without rupture Discharge Disposition: Discharge to home or self care 10/14/2024 12:45 PM CDT - 10/14/2024 11:59 PM CDT Hospital Encounter [facility] Office Building 2 Vascular [facility] [address] [place] [address] PVD (peripheral vascular disease) Discharge Disposition: Discharge to home or self care 10/11/2024 Orders Only [facility] Medical Group Vascular and Vein Surgery [address] [place] [address] Eusebio Jarrell MD Infrarenal abdominal aortic aneurysm (AAA) without rupture (Primary Dx) from Last 3 Months Allergies No known active allergies Medications fluticasone [...] 60 tablet 11 4 12/01/19 25 Active aspirin 81 mg enteric coated tablet Take 1 tablet (81 mg total) by mouth daily 30 tablet 1 4 Active atorvastatin (LIPITOR) 40 mg tablet Take 1 tablet (40 mg total) by mouth nightly 30 tablet 4 Active Xarelto 20 mg tablet Take 1 tablet (20 mg total) by mouth daily with dinner 30 tablet 11 4 12/01/19 25 Active metoprolol tartrate (LOPRESSOR) [...] flash glucose scanning reader (FreeStyle Mainor 2 [place]) misc Use as directed with sensor. 1 each [...] 11/22/2022 Assessment & Plan (06/15/2023 3:22 PM BRICK WASHER): Stable continue Lipitor 40 mg. Varicose veins [...] was positive for neuropathy. Oral sees a clinical registered nurse regularly for foot care. Discussed regular foot care with him to prevent and identify any irregularities on the soles of the feet or on and between the toes. Oral encouraged to utilize a mirror for better view of the soles of the feet if needed. Advised member to discuss with the PCP the services of a clinical registered nurse. 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 Assessment & [...] 11/30/2023 Assessment & Plan (06/15/2023 3:21 PM BRICK WASHER): Status post right above knee amputation. 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 Patient is [...] CDT): Chronic and controlled. Continue insulin regimen. Immunizations Immunization Administration Dates Next Due Influenza, Unspecified 07/24/2019,05/11/2018, Pfizer SARS-CoV-2 Monovalent Vaccination (12+ Yrs) PURPLE 10/28/2021 Td, Adsorbed, Preservative F ree, Adult Use, Lf Unspecified 05/07/2018 Td, Unspecified 05/07/2018 Social History Tobacco Use Types Packs/Day Years Used Date Smoking Tobacco: Every Day Cigarettes Tobacco Cessation:Ready to Q uit: Not Asked; Counseling Given: Not Answered Alcohol Use Standard Drinks/Week Comments Never 0 (1 standard drink = 0.6 oz pur e alcohol) [facility] Utilities Answer Date Recorded In the [...] often do you attend chur ch or episcopal services? Never 11/30/2023 Do you belong to any clubs o r organizations such as congregational groups, unions, fraternal or athletic groups, or [...] place to sleep or slept in a halfway (including now)? No 11/30/2023 PHQ-9 Answer Date Recorded PHQ-9 Total Score 5 06/12/2024 Personal Safety Answer Date Recorded Have you ever been in or are you currently in a harmful physical or emotional relationship or is someone making you feel afraid or unsafe? Denies 10/18/2024 Sex and Gender Information Value Date Recorded Sex Assigned at Not on file Legal Sex Male 6:54 PM BRICK WASHER Gender Identity Male 11/30/2023 12:46 AM CDT Sexual Orientation Not on file Last Filed Vital Signs [...] 10/18/2024 11:40 PM CDT Plan of Treatment Not on file Medical Devices Implanted Type Area Html Developer Device Identifier Shelf Expiration Date Model / Serial / Lot Nvigen Stent System BiomSpotster 3d Vascular [id number] - [id number] Implanted:Qty: 1 on 10/20/2022 by Tavares Jarrell MD at [facility] [employer] 01/19/2024 [id number] / / [id number] Procedures Procedure Name Priority Date/Time Associated Diagnosis [...] CDT LIPID PANEL Routine 09/14/2022 1:43 AM BRICK WASHER from Last 3 Months or Most Recently Relevant to Health Maintenance Results * (ABNORMAL) POCT glucose (10/19/2024 8:08 PM CDT) [facility] Glucose, POC 496(C) 70 - 199 mg/dL Glucose comment 1 Use This Result [facility] Blood 10/19/2024 8:08 PM CDT 10/19/2024 8:08 PM CDT us Zaid Heard DO LAB POCT ORDERABLES - DEVICE Fin al Result Performing Organization Address [facility] Co de Phone Number [address] [place] [address] * (ABNORMAL) POCT glucose (10/19/2024 5:49 PM CDT) Glucose, POC 306(H) 70 - 199 mg/dL Glucose comment 1 RN/MD Notified [facility] Blood 10/19/2024 5:49 PM CDT 10/19/2024 5:49 PM CDT us Saim Heard DO LAB POCT ORDERABLES - DEVICE Fin al Result Performing Organization Address [facility] de Phone Number [address] [place] [address] * (ABNORMAL) POCT glucose (10/19/2024 12:27 PM CDT) Glucose, POC 380(H) 70 - 199 mg/dL Blood 10/19/2024 12:2 7 PM CDT 10/19/2024 12:27 PM CDT us Saim Heard DO LAB POCT ORDERABLES - DEVICE Fin al Result Performing Organization Address [facility] de Phone Number [address] [place] [address] * (ABNORMAL) POCT glucose (10/19/2024 8:23 AM CDT) Glucose, POC 369(H) 70 - 199 mg/dL Glucose comment 1 Use This Result [facility] Glucose comment 2 RN/MD Notified [facility]I Blood 10/19/2024 8:23 AM CDT 10/19/2024 8:23 AM CDT us Saim Heard DO LAB POCT ORDERABLES - DEVICE Fin al Result Performing Organization Address [facility] Co de Phone Number [address] [place] [address] * eGFR (10/19/2024 1:45 AM CDT) [facility] eGFR >90 >=60 mL/min/1. 73 m2 Comment: [...] LAB BLOOD ORDERABLES Fin al Result [facility] [address] [place] [address] * (ABNORMAL) Differential, auto (10/19/2024 1:45 AM CDT) [facility] Neutrophil abs 5.6 1.5 - 6.5 K/cumm Imm gran abs 0.0 0.0 - 0.1 K/cumm [facility] Lymphocyte abs 0.8 0.8 - 3.3 K/cumm [facility] Monocyte abs 0.1(L) 0.2 - 0.8 K/cumm [facility] Eosinophil abs 0.0 0.0 - 0.5 K/cumm [facility] Basophil abs 0.0 0.0 - 0.1 K/cumm [facility] Neutrophil pct 85.8 % [facility] Comment: Interpretive Data Percent cell count reference ranges are not reported, since discordance with absolute values may lead to misinterpretation of CBC data. Current Interpretive Data was last revised on 2017. Imm gran pct 0.3 % [facility] Comment: Interpretive Data Percent cell count reference ranges are not reported, since discordance with absolute values may lead to misinterpretation of CBC data. Current Interpretive Data was last revised on 2017. Lymphocyte pct 12.2 % [facility] Comment: Interpretive Data Percent cell count reference ranges are not reported, since discordance with absolute values may lead to misinterpretation of CBC data. Current Interpretive Data was last revised on 2017. Monocyte pct 1.5 % [facility] Comment: Interpretive Data Percent cell count reference ranges are not reported, since discordance with absolute values may lead to misinterpretation of CBC data. Current Interpretive Data was last revised on 2017. Eosinophil pct 0.0 % [facility] Comment: Interpretive Data Percent cell count reference ranges are not reported, since discordance with absolute values may lead to misinterpretation of CBC data. Current Interpretive Data was last revised on 2017. Basophil pct 0.2 % [facility] Comment: Interpretive Data Percent cell count reference ranges are not reported, since discordance with absolute values may lead to misinterpretation of CBC data. Current Interpretive Data was last revised on 2017. Blood 10/19/2024 1:45 AM CDT 10/19/2024 1:51 AM CDT Evelyn Hernandez DO LAB BLOOD ORDERABLES Fin al Result [facility] [address] Department [place] [address] * CBC with auto differential (10/19/2024 1:45 AM CDT) WBC 6.6 3.8 - 9.9 K/cumm Hgb 14.1 13.0 - 17.5 g/dL [facility] Hct 41.3 38.9 - 50.3 % [facility] Plt 218 150 - 400 K/cumm [facility] MPV 9.2 9.1 - 12.3 fL [facility] RBC 4.79 4.30 - 5.80 M/cumm [facility] MCV 86.2 81.3 - 96.4 fL [facility] MCH 29.4 27.1 - 33.3 pg [facility] MCHC 34.1 32.3 - 35.7 g/dL [facility] RDW CV 13.4 11.1 - 14.9 % [facility] RDW SD 41.9 35.7 - 48.1 fL [facility] NRBC abs 0.00 0.00 - 0.01 K/cumm [facility] Blood 10/19/2024 1:45 AM CDT 10/19/2024 1:51 AM CDT Evelyn Hernandez DO LAB BLOOD ORDERABLES Fin al Result Performing Organization Address [facility] de Phone Number [address] [place] [address] * Phosphorus (10/19/2024 1:45 AM CDT) Phosphorus, pl 2.3 2.3 - 4.5 mg/dL Blood 10/19/2024 1:45 AM CDT 10/19/2024 1:51 AM CDT Evelyn Hernandez DO LAB BLOOD ORDERABLES Fin al Result Performing Organization Address [facility] Co de Phone Number [address] [place] [address] * Magnesium (10/19/2024 1:45 AM CDT) Magnesium 1.9 1.4 - 2.5 mg/dL Blood 10/19/2024 1:45 AM CDT 10/19/2024 1:51 AM CDT Evelyn MccartneyESTmob DO LAB BLOOD ORDERABLES Fin al Result Performing Organization Address [facility] Co de Phone Number [address] [place] [address] * (ABNORMAL) Comprehensive metabolic panel (10/19/2024 1:45 AM CDT) Sodium 133(L) 135 - 145 mmol/L Potassium, pl 3.9 3.3 - 4.9 mmol/L [facility] Chloride 99 97 - 110 mmol/L [facility] CO2 24 22 - 32 mmol/L [facility] Anion gap 10 2 - 15 mmol/L [facility] BUN 17 6 - 25 mg/dL [facility] Creatinine 0.32(L) 0.80 - 1.30 mg/dL [facility] Glucose 327(H) 70 - 199 mg/dL [facility] Comment: Interpretive Data Fasting glucose >/= [...] 2022. Calcium 9.1 8.5 - 10.3 mg/dL [facility] Bilirubin, total 0.4 0.1 - 1.2 mg/dL [facility] Protein, pl 6.3(L) 6.5 - 8.5 g/dL [facility] Albumin 3.6 3.5 - 5.0 g/dL [facility] Alk phos 75 40 - 130 Units/L [facility] ALT 14 7 - 55 Units/L [facility] AST 15 10 - 50 Units/L [facility] Blood 10/19/2024 1:45 AM CDT 10/19/2024 1:51 AM CDT Evelyn Hernandez DO LAB BLOOD ORDERABLES Fin al Result [address] Department [place] [address] * (ABNORMAL) POCT glucose (10/18/2024 11:52 PM CDT) Glucose, POC 281(H) 70 - 199 mg/dL Glucose comment 1 Use This Result [facility] Glucose comment 2 RN/MD Notified [facility] Blood 10/18/2024 11:5 2 PM CDT 10/18/2024 11:52 PM CDT Evelyn Hernandez DO LAB POCT ORDERABLES - DE VICE Final Result Performing Organization Address City/[facility]/ZIP Co de Phone Number [facility] [place] [address] * eGFR (10/18/2024 10:19 PM CDT) eGFR [...] DO LAB BLOOD ORDERABLES Fin al Result [facility] [place] [address] * (ABNORMAL) Hemoglobin A1c (10/18/2024 10:19 PM CDT) Hgb A1C 15.8(H) 4.0 - 5.6 % Estimated Average Glucose 407 mg/dL [facility] Comment: The ADA recommends reporting an estimated Average Glucose (eAG) with all Hemoglobin A1c results using the equation derived from a study of 507 normal and diabetic adults. Minority populations were underrepresented and children were not included. (Diabetes Care 31:5867-2371, 2008). The eAG is not equivalent to a fasting glucose. Blood 10/18/2024 10:1 9 PM CDT 10/18/2024 10:21 PM CDT Evelyn Hernandez DO LAB BLOOD ORDERABLES [facility] al Result [facility] [address] Department [place] [address] * (ABNORMAL) Basic metabolic panel (10/18/2024 10:19 PM CDT) Pathologist [facility] Sodium 135 135 - 145 mmol/L Potassium, pl 3.4 3.3 - 4.9 mmol/L [facility] Chloride 100 97 - 110 mmol/L [facility] CO2 22 22 - 32 mmol/L [facility] Anion gap 13 2 - 15 mmol/L [facility] BUN 15 6 - 25 mg/dL [facility] Creatinine 0.42(L) 0.80 - 1.30 mg/dL [facility] Glucose 364(H) 70 - 199 mg/dL [facility] Comment: Delta - Results Reviewed Interpretive [...] 2022. Calcium 8.9 8.5 - 10.3 mg/dL [facility] Blood 10/18/2024 10:1 9 PM CDT 10/18/2024 10:21 PM CDT Result [facility] Evelyn Prabhakar Sherrillcharlene LAB BLOOD ORDERABLES Fin al Result Performing Organization Address [facility] Co de Phone Number [facility] [address] [place] [address] * (ABNORMAL) POCT glucose (10/18/2024 10:00 PM CDT) Glucose, POC 429(H) 70 - 199 mg/dL Blood 10/18/2024 10:0 0 PM CDT 10/18/2024 10:00 PM CDT Result [facility] Evelyn Prabhakar Sherrillcharlene [facility] POCT ORDERABLES - DE VICE Final Result Performing Organization Address [facility] Co de Phone Number [facility] [address] [address] * (ABNORMAL) POCT glucose (10/18/2024 9:28 PM CDT) Glucose, POC 416(H) 70 - 199 mg/dL Blood 10/18/2024 9:28 PM CDT 10/18/2024 9:28 PM CDT Result [facility] Evelyn Prabhakar Sherrillcharlene LAB POCT ORDERABLES - DE VICE Final Result Performing Organization Address [facility] Co de Phone Number [address] [address] * (ABNORMAL) POCT glucose (10/18/2024 8:16 PM CDT) Glucose, POC 427(H) 70 - 199 mg/dL Blood 10/18/2024 8:16 PM CDT 10/18/2024 8:16 PM CDT Deo Alvarado MD LAB POCT ORDERABLES - CJ CE Final Result Performing Organization Address [facility] Co de Phone Number [facility] [address] [address] * Troponin T high-sensitivity 2-hour (10/18/2024 7:14 PM CDT) Trop T hs 19 <=22 ng/L Comment: Interpretive Data For further hscTnT resources including the diagnostic algorithm and an aid in interpretation, copy and paste this link: https://nrl.testcatalog.org/show/hsTrop Current Interpretive Data last revised 2020. Trop T hs delta 5 ng/L [facility] Trop T hs interp Equivocal [facility] Blood 10/18/2024 7:14 PM CDT 10/18/2024 7:16 PM CDT Deo Alvarado MD LAB BLOOD ORDERABLES Final Result Performing Organization Address [facility] Co de Phone Number [address] [place] [address] * (ABNORMAL) POCT glucose (10/18/2024 7:07 PM CDT) Pathologist [facility] Glucose, POC 543(C) 70 - 199 mg/dL Glucose comment 1 RN/MD Notified [facility] Blood 10/18/2024 7:07 PM CDT 10/18/2024 7:07 PM CDT Deo Alvarado MD LAB POCT ORDERABLES - CJ CE Final Result Performing Organization Address 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 AM T: Report ID: [id number] Reading Location: [id number] Deo Alvarado MD IMG XR PROCEDURES Final Re sult * Troponin T high-sensitivity series (baseline, 2hr, 4hr, 6hr) (10/18/2024 5:31 PM CDT) Trop T hs 14 <=22 ng/L Comment: Interpretive Data For further hscTnT resources including the diagnostic algorithm and an aid in interpretation, copy and paste this link: https://nrl.testcatalog.org/show/hsTrop Current Interpretive Data last revised 2020. Blood 10/18/2024 5:31 PM CDT 10/18/2024 5:47 PM CDT us Deo Alvarado MD LAB BLOOD ORDERABLES Final Result [facility] [address] Department [place] [address] * eGFR (10/18/2024 5:31 PM CDT) eGFR >90 >=60 mL/min/1. 73 [...] Alvarado MD LAB BLOOD ORDERABLES Final Result [facility] [address] Department [place] [address] * Differential, auto (10/18/2024 5:31 PM CDT) Pathologist [facility] Neutrophil abs 5.0 1.5 - 6.5 K/cumm Imm gran abs 0.0 0.0 - 0.1 K/cumm [facility] Lymphocyte abs 1.2 0.8 - 3.3 K/cumm [facility] Monocyte abs 0.7 0.2 - 0.8 K/cumm [facility] Eosinophil abs 0.1 0.0 - 0.5 K/cumm [facility] Basophil abs 0.0 0.0 - 0.1 K/cumm [facility] Neutrophil pct 71.5 % [facility] Comment: Interpretive Data Percent cell count reference ranges are not reported, since discordance with absolute values may lead to misinterpretation of CBC data. Current Interpretive Data was last revised on 2017. Imm gran pct 0.3 % [facility] Comment: Interpretive Data Percent cell count reference ranges are not reported, since discordance with absolute values may lead to misinterpretation of CBC data. Current Interpretive Data was last revised on 2017. Lymphocyte pct 16.8 % [facility] Comment: Interpretive Data Percent cell count reference ranges are not reported, since discordance with absolute values may lead to misinterpretation of CBC data. Current Interpretive Data was last revised on 2017. Monocyte pct 9.5 % [facility] Comment: Interpretive Data Percent cell count reference ranges are not reported, since discordance with absolute values may lead to misinterpretation of CBC data. Current Interpretive Data was last revised on 2017. Eosinophil pct 1.6 % [facility] Comment: Interpretive Data Percent cell count reference ranges are not reported, since discordance with absolute values may lead to misinterpretation of CBC data. Current Interpretive Data was last revised on 2017. Basophil pct 0.3 % [facility] Comment: Interpretive Data Percent cell count reference ranges are not reported, since discordance with absolute values may lead to misinterpretation of CBC data. Current Interpretive Data was last revised on 2017. Blood 10/18/2024 5:31 PM CDT 10/18/2024 5:47 PM CDT Deo Alvarado MD LAB BLOOD ORDERABLES Final Result Performing Organization Address City/[facility] Co de Phone Number [address] [place] [address] * (ABNORMAL) CBC with auto differential (10/18/2024 5:31 PM CDT) WBC 6.9 3.8 - 9.9 K/cumm Hgb 16.2 13.0 - 17.5 g/dL [facility] Hct 47.4 38.9 - 50.3 % [facility] Plt 213 150 - 400 K/cumm [facility] MPV 9.0(L) 9.1 - 12.3 fL [facility] RBC 5.47 4.30 - 5.80 M/cumm [facility] MCV 86.7 81.3 - 96.4 fL [facility] MCH 29.6 27.1 - 33.3 pg [facility] MCHC 34.2 32.3 - 35.7 g/dL [facility] RDW CV 13.3 11.1 - 14.9 % [facility] RDW SD 41.5 35.7 - 48.1 fL [facility] NRBC abs 0.00 0.00 - 0.01 K/cumm [facility] Blood Venous blood specimen / Unknown 10/18/2024 5:31 PM CDT 10/18/2024 5:47 PM CDT Deo Alvarado MD LAB BLOOD ORDERABLES Final Result Performing Organization Address City/[facility]/ZIP Co de Phone Number [facility] [address] Department [place] [address] * Protime-INR (10/18/2024 5:31 PM CDT) Pathologist [facility] PT 13.6 12.0 - 14.6 sec INR 1.0 0.9 - 1.2 [facility] Comment: Ref Range High Interpretive data Oral anticoagulant therapeutic ranges: Venous thromboembolism prophylaxis or treatment: 2.0-3.0 CARDIOLOGY Standard range: 2.0-3.0 High-intensity range: 2.5-3.5 Refer to indication-specific guidelines for appropriate target ranges for prosthetic heart valve replacement. Current interpretive data was last revised on 2019. Blood 10/18/2024 5:31 PM CDT 10/18/2024 5:47 PM CDT us Deo Alvarado MD LAB BLOOD ORDERABLES Final Result [facility] [address] Department [place] [address] * (ABNORMAL) Comprehensive metabolic panel (10/18/2024 5:31 PM CDT) Pathologist [facility] Sodium 130(L) 135 - 145 mmol/L Potassium, pl 4.3 3.3 - 4.9 mmol/L [facility] Chloride 90(L) 97 - 110 mmol/L [facility] CO2 22 22 - 32 mmol/L [facility] Anion gap 18(H) 2 - 15 mmol/L [facility] BUN 15 6 - 25 mg/dL [facility] Creatinine 0.37(L) 0.80 - 1.30 mg/dL [facility] Glucose 535(C) 70 - 199 mg/dL [facility] Comment: Critical Result called to and read back by [id number], DATE: 2024-10-18 18:26:17 BY: [id number] Interpretive Data Fasting glucose >/= 126 mg/dl [...] 2022. Calcium 10.1 8.5 - 10.3 mg/dL [facility] Bilirubin, total 0.4 0.1 - 1.2 mg/dL [facility] Protein, pl 7.2 6.5 - 8.5 g/dL [facility] Albumin 4.1 3.5 - 5.0 g/dL [facility] Alk phos 94 40 - 130 Units/L [facility] ALT 13 7 - 55 Units/L [facility] AST 15 10 - 50 Units/L [facility] Blood 10/18/2024 5:31 PM CDT 10/18/2024 5:47 PM CDT Deo Alvarado MD LAB BLOOD ORDERABLES Final Result [facility] [address] [facility] Department [place] [address] * ECG 12 lead (10/18/2024 5:29 PM CDT) Ventricular Rate EKG/Min 99 BPM [facility] Atrial Rate 99 BPM [facility] CT-Interval (MSEC) 122 ms [facility] QRS-Interval (MSEC) 82 ms [facility] QT-Interval (MSEC) 354 ms [facility] QTc 454 ms [facility] P [place] 74 degrees [facility] R [place] 0 degrees [facility] T [place] 67 degrees [facility] Diagnosis Normal sinus rhythm Possible Left atrial enlargement Borderline ECG When compared with ECG of 12-JUN-2024 04:31, Sinus rhythm has replaced Atrial fibrillation Vent. rate has decreased BY [address] no longer depressed in Inferior leads ST no longer depressed in Anterolateral leads Confirmed by LUCRECIA RODRIGUEZ M.D. ([id number]) on 10/21/2024 9:50:25 AM [facility] 10/18/2024 5:29 PM CDT 10/21/2024 9:50 AM CDT us Deo Alvarado MD ECG ORDERABLES Final Resu lt [facility] * US Duplex Scan of Aorta; Inferior Vena Cava, Iliac, Complete (10/14/2024 1:59 PM CDT) Anatomical Region Laterality Modality Vascular Ultrasound 10/14/2024 1:25 PM CDT Narrative 10/16/2024 10:22 AM CDT Abdominal Aortic Duplex Ultrasound Report Patient Name: ORAL HARRIS J : 1955 Study Date: 10/14/2024 1:25:22 PM Gender: M Payroll Lead: Tiffany Rose Provider: EUSEBIO JARRELL Quality: Adequate [...] Study Date: 10/14/2024 1:25:22 PM Gender: M Payroll Lead: Tiffany oRse Provider: EUSEBIO JARRELL Quality: Adequate Order Provider: [...] Study Date: 10/14/2024 1:12:00 PM Gender: M Payroll Lead: Tiffany Carrasco T Ref Provider: EUSEBIO JARRELL Quality: Adequate Order Provider: EUSEBIO JARRELL PROCEDURES: Arterial Report: Bilateral lower extremity arterial Doppler exam at rest. INDICATIONS: I73.9 Peripheral vascular disease, unspecified. HISTORY: Right leg above knee amputation. COMPARISONS: The previous exam was completed on 12/01/22. MEASUREMENTS: Right Value Left Value Rt Brachial Pressure 159 mmHg Lt Brachial Pressure 102 mmHg Lt Calf Pressure 88 mmHg Lt MEN'S BASKETBALL COACH Pressure 94 mmHg Lt DPA Pressure 89 [...] Study Date: 10/14/2024 1:12:00 PM Gender: M Payroll Lead: Tiffany Carrasco RVT Ref Provider: EUSEBIO JARRELL [...] mmHg Lt Calf Pressure 88 mmHg Lt M[employer] BASKETBALL COACH Pressure 94 mmHg Lt DPA Pressure 89 [...] Eusebio Jarrell MD 10/15/2024 1:24:56 PM CDT Eusebio Jarrell MD [facility] US PROCEDURES Final Result * Thyroid Function [place] (11/30/2023 7:45 AM CDT) TSH 1.44 0.30 - 4.20 mcIUnit/mL Blood 11/30/2023 7:45 AM CDT 11/30/2023 7:51 AM CDT us Efrain Spain MD LAB BLOOD ORDERABLES Final Result [facility] [address] [facility] Department [place] [address] * CTA Abdominal Aorta And Bilateral Iliofemoral [...] 5:21 PM - Electronically signed by Micah Huerta M.D. RB T: Report ID: [id number] Reading Location: [id number] Procedure Note Micah Huerta MD - 10/25/2022 [...] signed by Micah GONZALEZ T: Report ID: [id number] Reading Location: [place] [address] Viri Harrison DO IMG CT PROCEDURES Final Result * (ABNORMAL) Lipid panel (09/14/2022 1:43 AM BRICK WASHER) Cholesterol 158 30 - 199 mg/dL [facility] Comment: Interpretive Data Ages [...] revised on 2018. Chol/HDL ratio 5 [facility] Blood 09/14/2022 1:43 AM BRICK WASHER 09/14/2022 1:47 AM BRICK WASHER Aundrea Mello VIDEO OPERATOR LAB BLOOD ORDERABLES nal Result Performing Organization Address City/State/[facility] Co de Phone Number [facility] [address] [facility] Department [place] [address] from Last 3 Months or Most Recently Relevant to Health Maintenance Insurance MEDICARE ADVANTAGE [facility] Address: [id number] [place] [address] IDPA IDOR [facility] MEDICARE ADVANTAGE [facility] Address: [address] [address] [place] [address] Advance Directives For more information, please contact: [phone] * LIMITED - PEDIATRICS (Latest Code Status [...] Discussed with the following attending physician : [facility] 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
--- OUTSIDE RECORDS SUMMARY | 2024-11-25 03:53 | XMS_ITS | Clinical Summary ---
Author Organization [facility] Address [address] [facility] [place] [address] Care Team Providers Care Exhibitor Sales Name Role Phone Tatiana Dominguez PA-C Primary Care Provider [phone] Source Comments [facility],non-owned Affiliates and Associated Physician Practices is amultiple site organization consisting of ambulatory clinics and hospital sitesin [place], [place], [place] and [place]. This disclosure is being madepursuant to the Care Everywhere program and may not contain all information available regarding this patient. Last updated 18.[facility] Allergies No known active allergies Medications * Be aware that medications may not be up to date on this document. Alwaysverify current medications with the patient. Blood Glucose Monitoring Suppl (ONE TOUCH ULTRA MINI) W/DEVICE KIT 10/03/19 17 Active levothyroxine (SYNTHROID) 50 MCG tablet 12/30/19 17 Active blood glucose (ONETOUCH ULTRA TEST STRIPS) test strip 10/03/19 17 Active Krill Oil 350 MG CAPS Take 1 capsule by mouth 2 times daily Active fluticasone propionate (FLONASE) 50 MCG/ACT nasal spray Stebbins 2 sprays into each nostril once daily Active Pfeifer-3 Fatty Acids (OMEGA 3 PO) Take 1 capsule by mouth once daily Active azelastine (ASTELIN) 0.1 % nasal spray Stebbins 1 spray into each nostril 2 times daily 30 Inhaler 12/25/19 19 Active cyclobenzaprine (FLEXERIL) 5 MG tabletIndication s:Lumbar back pain TAKE 1 TABLET BY MOUTH THREE TIMES DAILY NEEDED FOR BACK PAIN 20 tablet 06/10/20 Active Additional Information Patient not taking.Reported on 03/30/2022 INCRUSE ELLIPTA 62.5 MCG/INH inhalerIndicatio ns:Chronic bronchitis, unspecified chronic bronchitis type (HCC) Inhale 1 puff by mouth once daily 1 Each 2 10/08/19 Active Additional Information Patient not taking.Reported on 03/30/2022 aspirin (ASPIRIN) 81 MG chew tablet Take 81 mg by mouth once daily Active albuterol HFA (PROVENTIL HFA) 108 (90 Base) MCG/ACT inhalerIndicatio ns:Chronic bronchitis, unspecified chronic bronchitis type (HCC) Inhale 2 (two) puffs by mouth every 4 hours as needed 18 g 3 02/22/20 Active Basaglar KwikPen (BASAGLAR) penIndications:T ype 2 diabetes mellitus with diabetic peripheral angiopathy without gangrene, with long-term current use of insulin ([facility]) Inject 12 (twelve) Units subcutaneously at bedtime 3 mL 02/22/20 Active cetirizine (ZYRTEC) 5 MG tabletIndication s:Chronic rhinitis Take 1 (one) tablet by mouth once daily 90 tablet 02/22/20 22 Active finasteride (PROSCAR) 5 MG tabletIndication s:Benign prostatic hyperplasia, unspecified whether lower urinary tract symptoms present Take 1 (one) tablet by mouth once daily 30 tablet 02/22/20 Active gabapentin (NEURONTIN) 300 MG capsuleIndicatio ns:Type 2 diabetes mellitus with diabetic peripheral angiopathy without gangrene, with long-term current use of insulin ([facility]) Take 1 (one) capsule by mouth 3 times daily 90 capsule 3 02/22/20 Active insulin pen needle (BD UF III) 31G X 8 MM needleIndication s:Type 2 diabetes mellitus with diabetic peripheral angiopathy without gangrene, with long-term current use of insulin ([facility]) once daily 100 Each 1 02/22/20 Active Additional Information Patient not taking.Reported on 03/30/2022 metFORMIN (GLUCOPHAGE) 500 MG tabletIndication s:Type 2 diabetes mellitus with diabetic peripheral angiopathy without gangrene, with long-term current use of insulin ([facility]) Take 2 (two) tablets by mouth 2 times daily with morning and evening meal 120 tablet 11 07/18/20 22 Active metoprolol tartrate IR (LOPRESSOR) 25 MG tabletIndication s:Essential hypertension 1 tab 2 times daily 60 tablet 2 02/22/20 22 Active nitroGLYCERIN (NITROSTAT) 0.4 MG tabletIndication s:History of LA (myocardial infarction) Dissolve 1 (one) tablet under the tongue every 5 minutes as needed for Angina 100 tablet 02/22/20 22 Active escitalopram (LEXAPRO) 10 MG tabletIndication s:Current moderate episode of major depressive disorder, unspecified whether recurrent (HCC) Take 1 (one) tablet by mouth once daily 30 tablet 02/22/20 22 Active tiotropium (SPIRIVA RESPIMAT) 2.5 MCG/ACT inhalerIndicatio ns:Chronic bronchitis, unspecified chronic bronchitis type (HCC) Inhale 2 (two) puffs by mouth once daily 12 g 1 02/22/20 22 Active atorvastatin (Lipitor) 40 MG tabletIndication s:Type 2 diabetes mellitus with diabetic peripheral angiopathy without gangrene, with long-term current use of insulin (HCC) Take 1 (one) tablet by mouth at bedtime 30 tablet 01/07/20 23 Active lisinopril (Prinivil; Zestril) 40 MG tablet Take 1 (one) tablet by mouth once daily 30 tablet 01/07/20 23 Active Active Problems Problem Noted Date Diagnosed Date Hepatitis C virus infection without hepatic coma 11/09/2018 Essential hypertension 11/09/2018 Cirrhosis 11/09/2018 Portal hypertension 11/09/2018 Coronary artery disease of n ative heart with stable angina pectoris 10/18/2018 History of heart artery stent 10/18/2018 Overview (10/18/2018): three BPH (benign prostatic hyperplasia) 10/18/2018 DMII (diabetes mellitus, type 2) 10/18/2018 COPD (chronic obstructive pulmonary disease) Hypothyroidism 10/18/2018 Iron deficiency anemia due to chronic blood loss 05/24/2018 Solitary pulmonary nodule 07/05/2017 Mucopurulent chronic bronchitis 07/05/2017 Tobacco use 07/05/2017 Other intervertebral disc displacement, lumbar r egion 02/09/2017 Abdominal aortic aneurysm without rupture 2016 Overview (04/23/2019): 3.3 x3.6cm on ultrasound done 04/2019, recheck again in 1 year. Immunizations Immunization Administration Dates Next Due So Protect Me primary monoval ent 12+ yr 0.3mL Purple cap 10/28/2021,03/21/2021,02/19/2021 INFLUENZA VACCINE 04/07/2018 TD VACCINE 05/07/2018 iNFLUENZA VACCINE, RECOM-WEEKS, QUADR. (FLUBLOCK QUADRIVALENT; 18Y+) (RIV4) 07/24/2019 Family History Medical History Relation Name Comments Aneurysm Father Status: d Cancer Mother Varicose Veins Mother Status: Decea sed Relation Name Status Comments Father Mother Social History Tobacco Use Types Packs/Day Years Used Date Smoking Tobacco: Every Day Cigarettes Last attempted to quit: 12/27/2016 Smokeless Tobacco: Never Alcohol Use Standard Drinks/Week Comments Yes 12 (1 standard drink = 0.6 oz pu re alcohol) About 1 beer/ week PHQ-2 Answer Date Recorded PHQ2 TOTAL SCORE 6 02/21/2022 Sex and Gender Information Value Date Recorded Sex Assigned at Not on file 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 Gender Identity Not on file Sexual Orientation Not on file Last Filed Vital Signs Vital Sign Reading Time Taken Comments Blood Pressure 143/86 03/30/2022 10:17 AM CDT Pulse 74 03/30/2022 10:17 AM CDT Temperature 36.6 C (97.8 F) 03/30/2022 10:17 AM CDT Respiratory Rate 16 02/12/2019 3:50 PM CDT Oxygen Saturation 96% 03/30/2022 10:17 AM CDT Inhaled Oxygen Concentration - - Weight 59 kg (130 lb) 03/30/2022 10:17 AM CDT Height 170.2 cm (5' 7 ) 03/30/2022 10:17 AM CDT Body Mass Index 20.36 03/30/2022 10:17 AM CDT Plan of Treatment Health Maintenance Due Date Last Done Comments COLOGUARD (AGES 45-75) - COLON CA SCREENING 1955 CT COLONOGRAPHY - COLON CA SCREENING 1955 FIT - COLON CA SCREENING 1955 FLEX SIG - COLON CA SCREENING 1955 PNEUMOCOCCAL VACCINE 50+ (1 of 2 - PCV) 02/15/1975 ZOSTER VACCINE (1 of 2) 02/15/2006 HEPATITIS B VACCINE (1 of 3 - Risk 3-dose series) 2016 Respiratory Syncytial Virus (RSV) Vaccine Pt: or over 60 yrs (1 - Risk 60-74 years 1-dose series) 2016 DIABETES RETINOPATHY SCREENING 10/18/2018 DIABETES-FOOT EXAM WITH MONOFILAMENT 02/21/2023 02/21/2022, 10/25/2018 DIABETES-HGB A1C 12/15/2023 06/16/2023, 06/2023, 10/19/2022, Additional history exists DIABETES-SERUM CREATININE 02/19/20242022, 02/17/2023, 02/17/2023, Additional history exists COVID-19 VACCINE ( season) 2024 10/28/2021, 03/21/2021, 02/19/2021 DEPRESSION SCREENING 08/07/2024 02/21/2022 DIABETES - URINE PROTEIN SCREENING 08/07/2024 11/24/2022, 10/05/2021 MEDICARE AWV CALENDAR YEAR 2024 INFLUENZA VACCINE (Season Ended) 2025 07/24/2019, 05/11/2018, 04/07/2018, Additional history exists DTAP/TDAP/TD VACCINES (2 - Td or Tdap) 05/07/2028 05/07/2018 COLON MONITORING 06/08/2028 06/08/2018 COLONOSCOPY - COLON CA SCREENING 06/08/2028 06/08/2018 Colorectal Cancer Screening 06/08/2028 HEPATITIS C SCREENING Completed 11/09/2018 AAA SCREENING Completed 04/22/2019, 12/26/2017 HIB VACCINE Aged Out No longer eligi ble based on patient's age to complete this topic HPV VACCINE Aged Out No longer eligi ble based on patient's age to complete this topic MENINGOCOCCAL (Group B) VACCINE SHARED DECISION-MAKING Aged Out No longer eligible based on patient's age to complete this topic MENINGOCOCCAL GROUPS A/C/Y/W VACCINE Aged Out No longer eligible based on patient's age to complete this topic Goals Goal Patient Goal Type Associated Problems Recent Progress Patient-Stated? Author Safety General On track( 019 2:26 PM CDT) Mariana Nieves, RN Note: Expected end date: Ongoing Interventions: Your nurse will assess your risk for falls/injury each visit Use appropriate and safe transfer methods Medication Management General On track( 019 2:26 PM CDT) No Mariana Hammonds, RN Note: Expected end date: Ongoing Interventions: Take all medications as prescribed Let your doctor know right away about any changes in your medications Procedures Procedure Name Priority Date/Time Associated Diagnosis Comments HEMOGLOBIN A1C - POINT OF CARE (AMB) [facility] Routine 07/24/2019 Healthcare maintenance US AORTA Routine 04/22/2019 11:43 AM CDT Abdominal aortic aneurysm without rupture COMPREHENSIVE METABOLIC PANEL Routine 10/18/2018 3:50 PM CDT Black stool from Last 3 Months or Most Recently Relevant to Health Maintenance Results * HEMOGLOBIN A1C - POINT OF CARE (AMB) [facility] (07/24/2019) Hemoglobin A1c POCT 10.3 BLOOD SPECIMEN / Unknown 07/24/2019 Faraz Bautista PA-C LAB - POINT OF CARE ORDERABLES Final Result * US AORTA (04/22/2019 11:43 AM CDT) Anatomical Region Laterality Modality Ultrasound 04/22/2019 1:40 PM CDT Impressions 04/22/2019 2:36 PM CDT IMPRESSION: Infrarenal abdominal aortic aneurysm measuring up to 3.3 x 3.6 cm. Follow-up is recommended. Report drafted by Juice Kent M.D. (resident) I, Dr. JANN HERRING M.D. have personally reviewed and interpreted this examination/study. This report was electronically signed by JANN HERRING M.D. on 04/22/2019 2:36 PM . Narrative 04/22/2019 2:36 PM CDT EXAMINATION: Limited retroperitoneal sonogram HISTORY: patient has a AAA, monitoring- was 3.3cm in 2017 per old records COMPARISON: No comparison images are available in the PACS system at the time of this dictation. FINDINGS: The aortic and iliac artery measurements below are in AP and transverse diameters, respectively. Proximal abdominal aorta: 2.5 x 2.3 cm Mid abdominal aorta: 3.3 x 3.6 cm Distal abdominal aorta: 2.8 x 3.1 cm Right common iliac artery: 0.9 x 1.0 cm Left common iliac artery: 1.0 x 0.9 cm There is no evidence of common iliac artery aneurysm. The abdominal aorta and common iliac arteries are patent. Hyperechoic foci in the abdominal aorta and proximal iliac arteries represent atherosclerotic plaques. Procedure Note Jann Herring MD - 04/22/2019 EXAMINATION: Limited retroperitoneal sonogram HISTORY: patient has a AAA, monitoring- was 3.3cm in 2017 per oldrecords COMPARISON: No comparison images are available in the PACS system at the time of this dictation. FINDINGS: The aortic and iliac artery measurements below are in AP and transverse diameters, respectively. Proximal abdominal aorta: 2.5 x 2.3 cm Mid abdominal aorta: 3.3 x 3.6 cm Distal abdominal aorta: 2.8 x 3.1 cm Right common iliac artery: 0.9 x 1.0 cm Left common iliac artery: 1.0 x 0.9 cm There is no evidence of common iliac artery aneurysm. The abdominalaorta and common iliac arteries are patent. Hyperechoic foci in the abdominal aorta and proximal iliac arteries represent atherosclerotic plaques. IMPRESSION: Infrarenal abdominal aortic aneurysm measuring up to 3.3 x 3.6 cm. Follow-up is recommended. Report drafted by Juice Kent M.D. (resident) I, Dr. JANN HERRING M.D. have personally reviewed and interpretedthis examination/study. This report was electronically signed by JANN HERRING M.D. on 04/22/2019 2:36 PM . Faraz Bautista PA-C US ORDERABLES Final Result * (ABNORMAL) COMPREHENSIVE METABOLIC PANEL (10/18/2018 3:50 PM CDT) BUN 9 7 - 26 mg/dL 10/18/2018 4:53 PM CDT [facility] Creatinine 0.7 0.6 - 1.2 mg/dL 10/18/2018 4:53 PM [facility] Sodium 134(L) 136 - 145 mmol/L 10/18/2018 4:53 PM [facility] Potassium 3.9 3.5 - 4.5 mmol/L 10/18/2018 4:53 PM [facility] Chloride 98 98 - 107 mmol/L 10/18/2018 4:53 PM [facility] CO2 25 22 - 29 mmol/L 10/18/2018 4:53 PM [facility] Glucose 290(H) 70 - 115 mg/dL 10/18/2018 4:53 PM [facility] Calcium 10.1 8.4 - 10.2 mg/dL 10/18/2018 4:53 PM [facility] Protein Total 7.8 6.0 - 8.3 g/dL 10/18/2018 4:53 PM [facility] Albumin 4.1 3.4 - 5.0 g/dL 10/18/2018 4:53 PM [facility] Bilirubin Total 0.7 0.2 - 1.2 mg/dL 10/18/2018 4:53 PM [facility] Alkaline Phosphatase 81 40 - 150 Units/L 10/18/2018 4:53 PM [facility] ALT 22 0 - 55 Units/L 10/18/2018 4:53 PM [facility] AST 19 5 - 34 Units/L 10/18/2018 4:53 PM [facility] Anion Gap 15 8 - 18 10/18/2018 4:53 PM [facility] BUN/Creatinine Ratio 13 7 - 23 10/18/2018 4:53 PM [facility] Osmolality Calculated 287 270 - 300 mOsm/kg 10/18/2018 4:53 PM [facility] Albumin/Globulin Ratio 1.1 1.1 - 2.3 10/18/2018 4:53 PM [facility] eGFR >60 >60 mL/min/1.7 3 m2 10/18/2018 4:53 PM [facility] Blood BLOOD SPECIMEN / Unknown Lab Venipuncture / Unknown 10/18/2018 3:50 PM CDT 10/18/2018 3:59 PM CDT Faraz Bautista PA-C LAB - CHEMISTRY ORDERABLES Fin al Result [facility] [address] [place] [address], [facility] [phone] from Last 3 Months or Most Recently Relevant to Health Maintenance Insurance [facility] MANAGED MEDICARE ADV [facility] Care Teams Exhibitor Sales Relationship Specialty Start Date End Date Tatiana Dominguez PA-C PCP - General 02/17/22
--- OUTSIDE RECORDS SUMMARY | 2024-11-25 03:53 | XMS_ITS ---
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
--- OUTSIDE RECORDS SUMMARY | 2024-11-25 03:53 | XMS_ITS ---
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
[2024-11-25 04:23] LABS: Basophils Percent Auto 0.3 % (0.2-1.2); Eosinophils Absolute Auto 0.1 K/mm3 (0-0.3); Eosinophils Percent Auto 1.2 % (0-4.4); Hematocrit 44.8 % (42.0-52.0); Hemoglobin 14.7 g/dL (14.0-18.0); Immature Granulocyte Absolute 0.02 K/mm3 (0.00-0.031); Immature Granulocyte Percent A 0.3 % (0-0.5); Lymphocytes Absolute Auto 1.17 K/mm3 (0.9-3.2); Lymphocytes Percent Auto 18.1 % (18.3-44.2); Mean Corpuscular HGB Conc 32.8 g/dl (32-36); Mean Corpuscular Hemoglobin 29.6 pg (26-34); Mean Corpuscular Volume 90.1 fl (80-100); Monocytes Absolute Auto 0.5 K/mm3 (0.1-0.6); Monocytes Percent Auto 7.6 % (2.6-8.5); Neutrophils Absolute Auto 4.7 K/mm3 (1.3-6.7); Neutrophils Percent Auto 72.5 % (45.5-73.1); Platelet Count Result 206 k/mm3 (150-375); Red Blood Count 4.97 M/mm3 (4.6-6.20); Red Cell Distribution Width 13.9 % (11.5-14.5); White Blood Count 6.5 K/mm3 (4.5-10.0)
--- NOTE | 2024-11-25 04:34 | ED_ITS ---
HPI - Chest Pain General Chief Complaint: Chest Pain <Jordana Swain MD - Last Filed: 11/25/24 07:06> Stated Complaint: CHEST PAIN <Jordana Swain MD - Last Filed: 11/25/24 07:06> History of Present Illness HPI narrative: Patient is a 69-year-old male who presents to the emergency department this evening complaining of chest pain that is left-sided radiating to his right arm. Patient states that the chest pain started this see while he was observing his cans and play with them. Chest pain happened shortly after midnight. Patient states that he was just discharged from [facility] approximately 4 days ago where he was admitted for the same chest pain and uncontrolled diabetes. Patient states that he had blood work done and cardiac evaluation. Patient did request that he is to be sent [facility] but EMS brought him here instead. Patient states that he did take a full dose oral chewable aspirin and 2 sublingual nitroglycerin prior to arrival to our facility. Patient currently states that his chest pain has almost completely resolved. Denies any nausea or vomiting, any recent illness, fevers or chills. Patient denies any history of cardiovascular disease and any stents but states that he did have pre MIs in the past. 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 Denies any additional symptoms or concerns at this time. <Jordana Swain MD - Last Filed: 11/25/24 07:06> Related Data Home Medications: Home Medications ?Medication ?Instructions ?Recorded ?Confirmed ?Last Taken ?Type Unable to Obtain Home Medications 06/12/20 06/12/20 Unknown History <Jordana Swain MD - Last Filed: 11/25/24 07:06> Allergies/Adverse Reactions: Allergies Allergy/AdvReac Type Severity Reaction Status Date / Time No Known Allergies Allergy Verified 06/12/20 10:53 <Jordana Swain MD - Last Filed: 11/25/24 07:06> Review of Systems 2 Review of Systems: All systems are reviewed and are negative unless stated otherwise in the HPI. <Jordana Swain MD - Last Filed: 11/25/24 07:06> PMFSH Past Medical History Medical History: Medical History HTN (hypertension) Diabetes Sciatica <Jordana Swain MD - Last Filed: 11/25/24 07:06> Surgical History Surgical History: Surgical History Surgical history unknown <Jordana Swain MD - Last Filed: 11/25/24 07:06> Social History Social History: Social History Smoking status: Current every day smoker Alcohol intake: current Alcohol use details: occasional Substance use: never Gender identity (if verbalized by the patient): Male <Jordana Swain MD - Last Filed: 11/25/24 07:06> Exam 2 Narrative: General: Alert, awake, afebrile, in no acute distress. HEENT: PERRL, no rhinorrhea, no post nasal drip, oropharynx clear. Neck: Trachea midline, no JVD, no lymphadenopathy. Cardiovascular: Regular rate and rhythm, no murmurs, rubs or gallops, no peripheral edema. Respiratory: Clear to auscultation bilaterally, no tachypnea, no wheezing, no rhonchi, no rubs, no respiratory distress. Abdomen: Soft, nontender, nondistended, no rebound, no guarding, no peritoneal signs. Musculoskeletal: No joint swelling or deformity, normal muscle tone, right [id number] amputation. Skin: No rashes or petechia, no signs of infection. Psychiatric: Alert and oriented, normal behavior and judgment for situation. Neurological: Alert and oriented to person, place, and time. Follows all commands. No focal deficits, speech is clear and fluent. <Jordana Swain MD - Last Filed: 11/25/24 07:06> Course Reevaluation(s) Reevaluation #1: Care turned over from night MED. She reports patient had cardiac evaluation at outside facility recently. She states he is pending 3 hour troponin and he can be discharged afterwards. Patient does not have any chest pain. He was recently admitted at [place] for cardiac evaluation and discharge . Patient has heart score of 3 today and he will follow up with cardiology. He has not questions or concerns. <Shelley Shea MD - Last Filed: 11/25/24 08:35> Date: 11/25/24 <Shelley Shea MD - Last Filed: 11/25/24 08:35> Time: 08:29 <Shelley Shea MD - Last Filed: 11/25/24 08:35> Vital Signs Vital signs: Vital Signs Temperature 97.8 F 11/25/24 03:41 Pulse Rate 99 11/25/24 03:41 Respiratory Rate 14 11/25/24 03:41 Pulse Oximetry 98 11/25/24 03:41 Oxygen Delivery Room Air 11/25/24 03:41 Temperature 97.8 F 11/25/24 03:41 Pulse Rate 84 11/25/24 07:37 Respiratory Rate 17 11/25/24 07:37 Blood Pressure 136/71 11/25/24 07:37 Pulse Oximetry 100 11/25/24 07:37 Oxygen Delivery Room Air 11/25/24 03:48 <Jordana Swain MD - Last Filed: 11/25/24 07:06> Vital Signs Temperature 97.8 F 11/25/24 03:41 Pulse Rate 99 11/25/24 03:41 Respiratory Rate 14 11/25/24 03:41 Pulse Oximetry 98 11/25/24 03:41 Oxygen Delivery Room Air 11/25/24 03:41 Temperature 97.8 F 11/25/24 03:41 Pulse Rate 84 11/25/24 07:37 Respiratory Rate 17 11/25/24 07:37 Blood Pressure 136/71 11/25/24 07:37 Pulse Oximetry 100 11/25/24 07:37 Oxygen Delivery Room Air 11/25/24 03:48 <Shelley Shea MD - Last Filed: 11/25/24 08:35> MDM - Chest Pain MDM Narrative Medical decision making narrative: The patient was evaluated by myself in the emergency department. History is obtained from patient who is an independent historian and physical exam was performed. External medical records were reviewed at this time. IV was established and pertinent tests were ordered. EKG was obtained which revealed sinus rhythm rate of 96 beats per minute with ST depressions noted in the inferior lateral leads otherwise no evidence of acute ischemia. EKG was independently interpreted by me and is currently pending official cardiology read. Laboratory results obtained revealing a glucose level of 472 otherwise no acute process. Imaging studies obtained included CXR which was independently interpreted by me revealing no acute cardiopulmonary process, which is pending final radiology interpretation. Differential diagnosis considerations include acute coronary syndrome, acute viral syndrome, infectious process such as pneumonia. Comorbidities impacting this visit include history of hypertension and diabetes. I have evaluated and discussed social determinants of health with the patient that could potentially impact subsequent diagnosis and treatment plans. On repeat assessment of the patient, reevaluation revealed that the patient is doing well and is in no acute distress. Patient symptoms have improved since he arrived to our emergency department. Repeat vital signs were all reviewed and noted to be stable. Differential diagnosis and treatment plan were discussed with the patient at bedside. <Jordana Swain MD - Last Filed: 11/25/24 07:06> Lab Data Result diagrams: 11/25/24 03:55 11/25/24 04:40 <Jordana Swain MD - Last Filed: 11/25/24 07:06> Labs: Lab Results 11/25/24 11/25/24 11/25/24 Range/Units 03:55 04:40 07:50 WBC 6.5 (4.5-10.0) K/mm3 RBC 4.97 (4.6-6.20) M/mm3 Hgb 14.7 (14.0-18.0) g/dL Hct 44.8 (42.0-52.0) % MCV 90.1 (80-100) fl MCH 29.6 (26-34) pg MCHC 32.8 (32-36) g/dl RDW 13.9 (11.5-14.5) % Plt Count 206 (150-375) k/mm3 MPV 10.0 (7.4-10.4) fl Immature Gran % (Auto) 0.3 (0-0.5) % Neut % (Auto) 72.5 (45.5-73.1) % Lymph % (Auto) 18.1 L (18.3-44.2) % [place] % (Auto) 7.6 (2.6-8.5) % Eos % (Auto) 1.2 (0-4.4) % Baso % (Auto) 0.3 (0.2-1.2) % Lymph # (Auto) 1.17 (0.9-3.2) K/mm3 [place] # (Auto) 0.5 (0.1-0.6) K/mm3 Eos # (Auto) 0.1 (0-0.3) K/mm3 Baso # (Auto) 0.0 (0.0-0.1) K/mm3 Abs Immat Gran (auto) 0.02 (0.00-0.031) K/mm3 Absolute Neuts (auto) 4.7 (1.3-6.7) K/mm3 Absolute Nucleated RBC 0.000 (0.0-0.012) K/mm3 Nucleated RBC % 0.0 (0.0-0.2) % PT 14.2 (11.1-14.7) Seconds INR 1.1 APTT 23.6 (22.3-36.8) Seconds Sodium 134 L (137-145) mmol/L Potassium 3.5 (3.4-5.0) mmol/L Chloride 99 (98-107) mmol/L Carbon Dioxide 22 (22-30) mmol/L Anion Gap 13 H (4-12) mmol/L BUN 14 (9-20) mg/dL Creatinine 0.32 L (0.7-1.3) mg/dL Estim Creat Clear Calc 145 ml/min Estimated GFR > 60 (59 - ) Glucose 472 H (65-110) mg/dL Calcium 10.0 (8.4-10.2) mg/dL Magnesium Cancelled 1.7 Total Bilirubin 0.4 (0.2-1.3) mg/dL AST 18 (17-59) U/L ALT 18 (6-50) U/L Alkaline Phosphatase 74 (38-126) U/L Troponin I Cancelled < 0.012 < 0.012 Total Protein 7.0 (6.3-8.2) g/dL Albumin 3.8 (3.5-5.1) g/dL Lipase 12 L (23-300) U/L <Jordana Swain MD - Last Filed: 11/25/24 07:06> Lab Results 11/25/24 11/25/24 11/25/24 Range/Units 03:55 04:40 07:50 WBC 6.5 (4.5-10.0) K/mm3 RBC 4.97 (4.6-6.20) M/mm3 Hgb 14.7 (14.0-18.0) g/dL Hct 44.8 (42.0-52.0) % MCV 90.1 (80-100) fl MCH 29.6 (26-34) pg MCHC 32.8 (32-36) g/dl RDW 13.9 (11.5-14.5) % Plt Count 206 (150-375) k/mm3 MPV 10.0 (7.4-10.4) fl Immature Gran % (Auto) 0.3 (0-0.5) % Neut % (Auto) 72.5 (45.5-73.1) % Lymph % (Auto) 18.1 L (18.3-44.2) % [place] % (Auto) 7.6 (2.6-8.5) % Eos % (Auto) 1.2 (0-4.4) % Baso % (Auto) 0.3 (0.2-1.2) % Lymph # (Auto) 1.17 (0.9-3.2) K/mm3 [place] # (Auto) 0.5 (0.1-0.6) K/mm3 Eos # (Auto) 0.1 (0-0.3) K/mm3 Baso # (Auto) 0.0 (0.0-0.1) K/mm3 Abs Immat Gran (auto) 0.02 (0.00-0.031) K/mm3 Absolute Neuts (auto) 4.7 (1.3-6.7) K/mm3 Absolute Nucleated RBC 0.000 (0.0-0.012) K/mm3 Nucleated RBC % 0.0 (0.0-0.2) % PT 14.2 (11.1-14.7) Seconds INR 1.1 APTT 23.6 (22.3-36.8) Seconds Sodium 134 L (137-145) mmol/L Potassium 3.5 (3.4-5.0) mmol/L Chloride 99 (98-107) mmol/L Carbon Dioxide 22 (22-30) mmol/L Anion Gap 13 H (4-12) mmol/L BUN 14 (9-20) mg/dL Creatinine 0.32 L (0.7-1.3) mg/dL Estim Creat Clear Calc 145 ml/min Estimated GFR > 60 (59 - ) Glucose 472 H (65-110) mg/dL Calcium 10.0 (8.4-10.2) mg/dL Magnesium Cancelled 1.7 Total Bilirubin 0.4 (0.2-1.3) mg/dL AST 18 (17-59) U/L ALT 18 (6-50) U/L Alkaline Phosphatase 74 (38-126) U/L Troponin I Cancelled < 0.012 < 0.012 Total Protein 7.0 (6.3-8.2) g/dL Albumin 3.8 (3.5-5.1) g/dL Lipase 12 L (23-300) U/L <Shelley Shea MD - Last Filed: 11/25/24 08:35> Discharge Plan Discharge Clinical Impression: Chest pain <Jordana Swain MD - Last Filed: 11/25/24 07:06> Patient Disposition: Home <Jordana Swain MD - Last Filed: 11/25/24 07:06> Condition: Improved <Jordana Swain MD - Last Filed: 11/25/24 07:06> Instructions: Antibiotic Form, Chest Pain (ED) <Jordana Swain MD - Last Filed: 11/25/24 07:06> Additional Instructions: Please call your construction executive today and make a follow up appointment. REturn to ER if symptoms worsen. <Jordana Swain MD - Last Filed: 11/25/24 07:06> Patient Language: Belarusian <Jordana Swain MD - Last Filed: 11/25/24 07:06> Prescriptions: No Action Unable to Obtain Home Medications <Jordana Swain MD - Last Filed: 11/25/24 07:06> Follow-up/Referrals: Beto Butterfield MD [Physician] - UNKNOWN,DOCTOR [Primary Care Provider] - <Jordana Swain MD - Last Filed: 11/25/24 07:06> Quality HEART score for chest pain patients History: slightly suspicious <Shelley Shea MD - Last Filed: 11/25/24 08:35> ECG: normal <Shelley Shea MD - Last Filed: 11/25/24 08:35> Age: > or = to 65 years <Shelley Shea MD - Last Filed: 11/25/24 08:35> Risk factors: 1 or 2 risk factors <Shelley Shea MD - Last Filed: 11/25/24 08:35> Troponin: < or = to 1x normal limit <Shelley Shea MD - Last Filed: 11/25/24 08:35> Heart score: 3 <Shelley Shea MD - Last Filed: 11/25/24 08:35>
[2024-11-25 04:56] LABS: Troponin I < 0.012 ng/mL (0.000-0.034)
[2024-11-25 05:02] LABS: Alanine Aminotransferase 18 U/L (6-50); Albumin Level 3.8 g/dL (3.5-5.1); Alkaline Phosphatase 74 U/L (38-126); Anion Gap 13 mmol/L (4-12); Aspartate Amino Transferase 18 U/L (17-59); Bilirubin,Total 0.4 mg/dL (0.2-1.3); Blood Urea Nitrogen 14 mg/dL (9-20); Carbon Dioxide 22 mmol/L (22-30); Chloride 99 mmol/L (98-107); Estimated CRCL calculation 145 ml/min; Estimated Glomerular Filt Rate > 60; Glucose 472 mg/dL (65-110); Lipase 12 U/L (23-300); Magnesium 1.7 mg/dL (1.6-2.3); Potassium 3.5 mmol/L (3.4-5.0); Sodium 134 mmol/L (137-145)
[2024-11-25 06:51] LABS: INR 1.1; Prothrombin Time 14.2 Seconds (11.1-14.7)
[2024-11-25 06:52] LABS: Partial Thromboplastin Time 23.6 Seconds (22.3-36.8)
--- NOTE | 2024-11-25 07:05 | PC.NURSE ---
Pt refusing to get into hospital gown
--- NOTE | 2024-11-25 07:30 | ECG_ITS ---
Test Date: 2024-11-25 07:36:47 Measurements Intervals [place] Rate: 82 P: 58 ID: [id number] QRS: 23 QRSD: 106 T: 48 QT: 362 QTc: 424 Interpretive Statements SINUS RHYTHM POSSIBLE LEFT ATRIAL ENLARGEMENT CANNOT R/O SEPTAL INFARCT, AGE INDETERMINATE BORDERLINE ST ABNORMALITY- INFERIOR LEADS ABNORMAL ECG Compared to ECG 11/25/2024 03:53:47 NO SIGNIFICANT CHANGE Electronically Signed On 11-25-2024 07:49:31 CDT by Sinan Carrion D.O.
[2024-11-25 08:26] LABS: Troponin I < 0.012 ng/mL (0.000-0.034)
== END 2024-11-25 08:51 | disposition home or self-care (01) ==
PROVIDERS: Emergency Provider Emergency Medicine
DX: R07.9 Chest pain, unspecified (principal); I10 Essential (primary) hypertension; E11.9 Type 2 diabetes mellitus without complications; F17.200 Nicotine dependence, unspecified, uncomplicated
CPT/HCPCS: 36415; 71046; 80053; 83690; 83735; 84484; 85025; 85610; 85730; 93005; 99284